=== PATIENT | female | born 1945 | race Caucasian/White ===

== ENCOUNTER 2016-07-19 14:34 | Emergency (ER) | payer MEDICARE, OTHER ==
[~2016-07-19] VITALS: Ht 167.6 cm; Wt 88.5 kg
[2016-07-19] MEDS ORDERED: HYDR-2666 PO (15:55)
[2016-07-19] MEDS ORDERED: PENI500T PO (15:55)
[2016-07-19] MEDS ORDERED: NAPR500T PO (15:55)
--- NOTE | 2016-07-19 15:55 | PHYS DOC ---
Past Medical History Past Medical History: Diabetes-Type II Past Surgical History: No Surgical History Alcohol Use: None Drug Use: None Adult General Chief Complaint Chief Complaint: DENTAL PROBLEM HPI HPI Patient is a 70 year old [female pleasant who presents with a history of diabetes and dental pain that began 2 days ago. Patient noted some upper dental pain with chewing and mild facial swelling that has gotten progressively worse over last 2 days. She denies any documented fevers but has had some chills without change in voice, ear pain, recent URI symptoms, trauma to her mouth or problems swallowing. Patient has a history of dentition problems with multiple caps and fillings in the past. She does not get routine dental care she does not brush her teeth twice a day. She denies any halitosis abdominal pain, chest pain, shortness of breath, neck pain or neck symptoms. At this point patient is just worried about the localized swelling in the cheek above the upper teeth. Differential diagnosis includes dental caries, dental abscess, gingival abscess , gingivitis, buccal abscess, sialitis, dental fracture, Manjit angina, sialadenitis, parotitis, dyspnea, otitis externa, sinusitis, facial cellulitis. Review of Systems Review of Systems Constitutional: Denies fever or just minor subjective chills Eyes: Denies change in visual acuity, redness, or eye pain [] HENT: Denies nasal congestion or sore throat [] Respiratory: Denies cough or shortness of breath [] Cardiovascular: No additional information not addressed in HPI [] GI: Denies abdominal pain, nausea, vomiting, bloody stools or diarrhea [] : Denies dysuria or hematuria [] Musculoskeletal: Denies back pain or joint pain [] Integument: Denies rash or skin lesions [] Neurologic: Denies headache, focal weakness or sensory changes [] Endocrine: Denies polyuria or polydipsia [] Physical Exam Physical Exam Constitutional: Well developed, well nourished, no acute distress, non-toxic appearance. [] HENT: Normocephalic, atraumatic, bilateral external ears normal, oropharynx moist, no oral exudates, nose normal. He does have some soft tissue swelling to the buccal mucosa superiorly to the #16 tooth has some tenderness with palpation. Percussion there is no obvious fluctuance or abscess to drain at this time. Patient has no pain over the tragus or the external pinna. There is no Bynum sign is no rashes on the face. There is no rash along the scalp line. Eyes: PERRLA, EOMI, conjunctiva normal, no discharge. [] Neck: Normal range of motion, no tenderness, supple, no stridor. [] Cardiovascular:Heart rate regular rhythm, no murmur [] Lungs & Thorax: Bilateral breath sounds clear to auscultation [] Skin: Warm, dry, no erythema, no rash. [] Neurologic: Alert and oriented X 3, normal motor function, normal sensory function, no focal deficits noted. Patient's cranial nerve exam 2 through 12 are intact and normal speech Psychologic: Affect normal, judgement normal, mood normal. [] EKG EKG [] Radiology/Procedures Radiology/Procedures [] Course & Med Decision Making Course & Med Decision Making Pertinent Labs and Imaging studies reviewed. (See chart for details) she presents with likely odontogenic infection and isn't affected soft tissue of the buccal mucosa. There is no evidence of cell adenitis parotitis or other soft tissue infection. Doubt fracture to it there is extensive dental caries with gingival inflammation along the base of each tooth and along the occlusive services. Patient was provided a course of penicillin, pain medications and anti -inflammatories with close follow-up on Wednesday or Wednesday with a dentist to help reduce burden of bacteria across her teeth by getting cleanings. I would advise that she has teeth drilled and filled and possible root canal. Impression dental caries with localized soft tissue information. Disposition: Dental follow-up 24-48 hours. A course of penicillin, Lortab, Motrin. [] Dragon Disclaimer Dragon Disclaimer This electronic medical record was generated, in whole or in part, using a voice recognition dictation system. Departure Departure Impression: Primary Impression: Dental caries Disposition: HOME, SELF-CARE Condition: IMPROVED Referrals: BEST ARROYO MD (PCP) Patient Instructions: Dental Caries Additional Instructions: His follow-up with your dentist in next 24-48 hours for definitive exam and removal of possibly infected teeth. Given the extent of your dental erosions I would advise that you get leanings every 6 months as well as routine dental care every day of water pressure to twice daily and flossing. Please return for any new or increasing symptoms fevers chills neck pain swelling or other questions. Scripts Penicillin V Potassium (PENICILLIN V POTASSIUM) 500 Mg Tablet 1 TAB PO QID, #40 TAB Prov: NICHO CULP MD 07/19/16 Naproxen (NAPROSYN) 500 Mg Tablet 1 TAB PO BID, #14 TAB 1 Refill Prov: NICHO CULP MD 07/19/16 Hydrocodone Bit/Acetaminophen (HYDROCODONE-APAP 5-325 ) 1 Each Tablet 1-2 TAB PO PRN Q6HRS Y for PAIN for 5 Days, #10 TAB 0 Refills Prov: NICHO CULP MD 07/19/16 NICHO CULP MD Jul 19, 2016 15:55
[2016-07-19 16:18] VITALS: BP 132/62
== END 2016-07-19 16:23 | disposition home or self-care (01) ==
LOC: ER 14:34
DX: K02.9 Dental caries, unspecified (principal); E11.9 Type 2 diabetes mellitus without complications; K05.10 Chronic gingivitis, plaque induced
CPT/HCPCS: 99283

== ENCOUNTER 2016-07-27 12:18 | Emergency (ER) | payer MEDICARE, OTHER ==
[~2016-07-27] VITALS: Ht 167.6 cm; Wt 88.5 kg
[~2016-07-27 12:18] MED LIST: HYDR-2758 PO; NAPR500T PO; PENI500T PO
[2016-07-27] MEDS ORDERED: IV NORMAL SALINE 1000ML BAG 1,000 ML IV ONE (13:00)
--- NOTE | 2016-07-27 13:05 | PHYS DOC ---
Past Medical History Past Medical History: Diabetes-Type II, Hypertension Past Surgical History: No Surgical History Alcohol Use: None Drug Use: None Adult General Chief Complaint Chief Complaint: WEAKNESS/GENERALIZED HPI HPI Patient is a 70 year old F who presents with generalized weakness and nausea vomiting. Patient is currently on penicillin for tooth infection and had 2 teeth pulled last week. Patient states she has not been feeling well and she eats it does not sit well with her and vomits. Patient called her dentist this morning to discuss her symptoms and the dentist told her to follow-up with her PCP. Patient called her PCP discussed her symptoms and the PCP told her to follow up with dentist. Patient denies any fevers. Patient denies any chest pain returns of breath. Patient does complain of some swelling to her left side the face more notably at night. Patient denies any abdominal pain. Pertinent exam findings: No swelling to her left side of the face noted on physical exam Severe dental caries and missing teeth no identifiable abscess seen on the left upper or lower gumlines Heart was regular rate and rhythm with a 4/6 MICHELLE ED course: She was seen and examined a CBC, BMP, CT scan of the maxillofacial without contrast ordered 1718: Patient was reevaluated and was feeling better and wants to go home and does not want to be admitted to hospital. Discussed abnormal blood work the patient and recommended she follow up with PCP to have her white count rechecked. 1800: Discussed CC/HP/PMH with Dr. Arroyo and will call the patient for follow- up and agrees with discharge. Pertinent results: 1328: KG shows normal sinus rhythm rate of 70 no STEMI WBC 18 Chest x-ray NAD CT scan of maxillofacial negative MDM: After reviewing the chart, CC/HPI/PMH, physical exam, [lab results], [ radiological results], I do not believe the patient has emergent medical condition warranting further workup and/or admission at this time. I do not the patient has a severe bacterial infection despite the white count being 18 and having no other signs of infection, afebrile and a normal epigastric. On reexamination patient does not want to be admitted to hospital under seen all risks including and disability and would like to go home. Recommended she follow up with PCP to have her white count rechecked. Additional verbal discharge instructions were provided to the patient and that if symptoms get worse or any new symptoms arise that are worrisome to the patient she is to return to the emergency room immediately Review of Systems Review of Systems GEN: Generalized weakness HEENT: Denies blurred vision, sore throat CV: Denies chest pain RESP: Denies shortness of air, cough GI: Nausea and vomiting NEURO: Denies confusion, dizziness MSK: Denies weakness, joint pain/swelling Current Medications Current Medications Current Medications Medications (Trade) Dose Ordered Sig/Riley Start Time Stop Time Status Last Admin Dose Admin Sodium Chloride 1,000 ml @ 1,000 mls/hr 1X ONCE 07/27/16 13:00 07/27/16 13:59 DC 07/27/16 13:43 1,000 MLS/HR Allergies Allergies Allergies Coded Allergies Type Severity Reaction Last Updated Verified No Known Drug Allergies 07/19/16 No Physical Exam Physical Exam GEN.: No apparent distress. Alert and oriented. HEENT: Head is normocephalic, atraumatic Mouth: No swelling to her left side of the face noted on physical exam Severe dental caries and missing teeth no identifiable abscess seen on the left upper or lower gumlines NECK: Supple. LUNGS: CTAB. HEART: RRR, or/6 MICHELLE. Peripheral pulses intact ABDOMEN: Soft, nontender. Positive bowel sounds. EXTREMITIES: Without any cyanosis. NEUROLOGIC: Normal speech, normal tone PSYCHIATRIC: Normal affect, normal mood. SKIN: No ulcerations Current Patient Data Vital Signs Vital Signs Date Time Temp Pulse Resp B/P (MAP) Pulse Ox O2 Delivery O2 Flow Rate FiO2 07/27/16 17:35 80 16 142/66 (91) 94 Room Air 07/27/16 12:45 98.9 98.9 Lab Values Laboratory Tests Test 07/27/16 12:55 07/27/16 14:35 07/27/16 15:55 White Blood Count 18.6 x10^3/uL (4.0-11.0) H Red Blood Count 3.76 x10^6/uL (3.50-5.40) Hemoglobin 10.5 g/dL (12.0-15.5) L Hematocrit 32.2 % (36.0-47.0) L Mean Corpuscular Volume 86 fL (79-100) Mean Corpuscular Hemoglobin 28 pg (25-35) Mean Corpuscular Hemoglobin Concent 33 g/dL (31-37) Red Cell Distribution Width 14.6 % (11.5-14.5) H Platelet Count 589 x10^3/uL (140-400) H Neutrophils (%) (Auto) 81 % (31-73) H Lymphocytes (%) (Auto) 12 % (24-48) L Monocytes (%) (Auto) 7 % (0-9) Eosinophils (%) (Auto) 0 % (0-3) Basophils (%) (Auto) 0 % (0-3) Neutrophils # (Auto) 15.1 x10^3uL (1.8-7.7) H Lymphocytes # (Auto) 2.2 x10^3/uL (1.0-4.8) Monocytes # (Auto) 1.2 x10^3/uL (0.0-1.1) H Eosinophils # (Auto) 0.0 x10^3/uL (0.0-0.7) Basophils # (Auto) 0.0 x10^3/uL (0.0-0.2) Sodium Level 136 mmol/L (136-145) Potassium Level 3.7 mmol/L (3.5-5.1) Chloride Level 97 mmol/L (98-107) L Carbon Dioxide Level 32 mmol/L (21-32) Anion Gap 7 (6-14) Blood Urea Nitrogen 26 mg/dL (7-20) H Creatinine 1.0 mg/dL (0.6-1.0) Estimated GFR (Cockcroft-Gault) 54.8 Glucose Level 223 mg/dL (70-99) H Calcium Level 9.6 mg/dL (8.5-10.1) Urine Collection Type Unknown Urine Color Yellow Urine Clarity Turbid Urine pH 7.5 Urine Specific [place] 1.020 Urine Protein Negative mg/dL (NEG-TRACE) Urine Glucose (UA) Negative mg/dL (NEG) Urine Ketones (Stick) Negative mg/dL (NEG) Urine Blood Negative (NEG) Urine Nitrite Negative (NEG) Urine Bilirubin Negative (NEG) Urine Urobilinogen Dipstick 0.2 mg/dL (0.2 mg/dL) Urine Leukocyte Esterase Negative (NEG) Urine RBC 0 /HPF (0-2) Urine WBC 1-4 /HPF (0-4) Urine Squamous Epithelial Cells Few /LPF Urine Amorphous Sediment Present /HPF Urine Bacteria Few /HPF (0-FEW) Lactic Acid Level 1.0 mmol/L (0.4-2.0) Laboratory Tests 07/27/16 12:55 Laboratory Tests 07/27/16 12:55 EKG EKG Normal sinus rhythm rate of 70 no STEMI [] Radiology/Procedures Radiology/Procedures CT scan the facial without contrast: NAD[] Course & Med Decision Making Course & Med Decision Making Pertinent Labs and Imaging studies reviewed. (See chart for details) [] Dragon Disclaimer Dragon Disclaimer This electronic medical record was generated, in whole or in part, using a voice recognition dictation system. Departure Departure Impression: Primary Impression: Weakness Disposition: HOME, SELF-CARE Condition: IMPROVED Referrals: BEST ARROYO MD (PCP) Patient Instructions: Weakness, [id number] Additional Instructions: Recommend patient follow PCP in one to 2 days and return symptoms increase MARVA ANDERSON DO Jul 27, 2016 13:05
[2016-07-27 13:14] LABS: BASO % 0 % (0-3); EOS % 0 % (0-3); HEMATOCRIT 32.2 % (36.0-47.0); HEMOGLOBIN 10.5 g/dL (12.0-15.5); LYMPH # 2.2 x10^3/uL (1.0-4.8); LYMPH % 12 % (24-48); MEAN CORPUSCULAR HEMOGLOBIN 28 pg (25-35); MEAN CORPUSCULAR HGB CONC 33 g/dL (31-37); MEAN CORPUSCULAR VOLUME 86 fL (79-100); MONO % 7 % (0-9); NEUT % 81 % (31-73); PLATELET COUNT 589 x10^3/uL (140-400); RED BLOOD COUNT 3.76 x10^6/uL (3.50-5.40); RED CELL DISTRIBUTION WIDTH 14.6 % (11.5-14.5); WHITE BLOOD COUNT 18.6 x10^3/uL (4.0-11.0)
[2016-07-27 13:18] LABS: CALCIUM 9.6 mg/dL (8.5-10.1); GFR 54.8; POTASSIUM 3.7 mmol/L (3.5-5.1)
[2016-07-27 14:41] LABS: BILIRUBIN,URINE NEGATIVE (NEG); GLUCOSE,URINE NEGATIVE (NEG); NITRITE,URINE NEGATIVE (NEG); PH,URINE 7.5; PROTEIN,URINE NEGATIVE (NEG-TRACE); UROBILINOGEN,URINE 0.2 mg/dL (0.2 mg/dL)
[2016-07-27 15:11] LABS: BACTERIA,URINE FEW /HPF (0-FEW); RBC,URINE 0 /HPF (0-2); SQUAMOUS EPITHELIAL CELL,UR FEW /LPF
--- NOTE | 2016-07-27 15:21 | RAD ---
CT scan of the facial bones without contrast 07/27/2016 Clinical history: Left facial swelling and weakness. History of periodontal disease. Recent tooth extraction. Technique: Unenhanced, contiguous, 0.625 mm axial sections were obtained through the facial bones and orbits. 2 mm reconstructed sagittal, axial and coronal images were obtained. Findings: No facial bone fracture is seen. Both orbits are intact. Mild mucosal thickening is seen involving both maxillary sinuses. The remaining paranasal sinuses are clear. No air-fluid level is seen. Extraction sites are seen involving the left aspect of the maxilla in the region of the first and third molars. An old extraction site is seen in the region of the left lower first molar. The right lower first molar is fractured at its root. A caries is seen involving the right upper second premolar. No Periapical lucency is seen. The right mandibular head is translated anterior to the TMJ fossa relative to the left which may reflect meniscus displacement. Mild to moderate degenerative changes are seen involving both TMJs, right greater than left. No abnormal fluid collection is seen within the soft tissues to suggest evidence of an abscess. Impression: Paranasal sinus and dental disease findings as outlined above. No acute soft tissue abnormality is seen.
[2016-07-27 17:35] VITALS: BP 142/66
--- NOTE | 2016-07-28 08:25 | RAD ---
EXAM: Chest one view. HISTORY: Hypoxia. COMPARISON: 08/02/2009. FINDINGS: A frontal view of the chest is obtained. There is mild atelectasis in the left base. Scattered calcified granulomas are noted. There is no pneumothorax or pleural effusion. The heart is mildly enlarged. There are atherosclerotic calcifications of the aorta. IMPRESSION: 1. Mild cardiomegaly.
--- NOTE | 2016-07-28 09:39 | EKG ---
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
== END 2016-07-27 17:55 | disposition home or self-care (01) ==
LOC: ER 12:18
DX: R53.1 Weakness (principal); R11.2 Nausea with vomiting, unspecified; R22.0 Localized swelling, mass and lump, head; E11.9 Type 2 diabetes mellitus without complications; I10 Essential (primary) hypertension
CPT/HCPCS: 36415; 70486; 71010; 80048; 81001; 83605; 85027; 87040; 87205; 93005; 96360; 99285; J7030

== ENCOUNTER 2016-07-30 12:19 | Inpatient (IN) | payer MEDICARE, OTHER ==
[~2016-07-30] VITALS: Ht 167.6 cm; Wt 87.3 kg
[2016-07-30] VITALS (10 sets, daily range): BP systolic 115–153; BP diastolic 55–74
[2016-07-30] MEDS ORDERED: IV NORMAL SALINE 1000ML BAG 1,000 ML IV ONE (13:15)
[2016-07-30 13:27] LABS: BASO % 0 % (0-3); EOS % 0 % (0-3); HEMATOCRIT 32.9 % (36.0-47.0); HEMOGLOBIN 10.7 g/dL (12.0-15.5); LYMPH # 2.4 x10^3/uL (1.0-4.8); LYMPH % 11 % (24-48); MEAN CORPUSCULAR HEMOGLOBIN 28 pg (25-35); MEAN CORPUSCULAR HGB CONC 33 g/dL (31-37); MEAN CORPUSCULAR VOLUME 85 fL (79-100); MONO % 6 % (0-9); NEUT % 82 % (31-73); PLATELET COUNT 592 x10^3/uL (140-400); RED BLOOD COUNT 3.86 x10^6/uL (3.50-5.40); RED CELL DISTRIBUTION WIDTH 15.1 % (11.5-14.5); WHITE BLOOD COUNT 21.3 x10^3/uL (4.0-11.0)
[2016-07-30 13:40] LABS: CALCIUM 9.2 mg/dL (8.5-10.1); CREATININE 0.8 mg/dL (0.6-1.0); GFR 70.9; POTASSIUM 3.1 mmol/L (3.5-5.1)
[2016-07-30 13:45] LABS: ALBUMIN 2.1 g/dL (3.4-5.0); ALBUMIN/GLOBULIN RATIO 0.4 (1.0-1.7); TOTAL BILIRUBIN 0.7 mg/dL (0.2-1.0); TOTAL PROTEIN 8.1 g/dL (6.4-8.2)
[2016-07-30] MEDS ORDERED: DEXTROSE 50% 25 GM / 50ML DISP.SYRIN. IV ONE (13:45)
--- NOTE | 2016-07-30 13:50 | RAD ---
AP portable chest radiograph 07/30/2016 Clinical History: Fever since earlier today. Hypertension, diabetes and sleep apnea. An AP portable erect digital radiograph of the chest was obtained. Comparison study is dated 07/27/2016. The cardiac silhouette is mildly enlarged. Atherosclerotic calcification of the thoracic aorta is seen. The thoracic aorta is mildly tortuous. No acute pulmonary infiltrate is noted. No pleural effusion or pneumothorax is seen. Degenerative changes are seen involving the thoracic spine and both shoulders. Impression: No acute pulmonary infiltrate is seen.
[2016-07-30 13:58] LABS: HCO3 ABG 24 mmol/L (21-28); PCO2 ABG 28 mmHg (35-46); PO2 ABG 68 mmHg (65-108); SAT O2 ABG 95 % (92-99)
[2016-07-30 14:01] LABS: BILIRUBIN,URINE MODERATE (NEG); GLUCOSE,URINE NEGATIVE (NEG); NITRITE,URINE NEGATIVE (NEG); PH,URINE 5.5; PROTEIN,URINE NEGATIVE (NEG-TRACE)
[2016-07-30 14:03] LABS: PH ABG 7.55 (7.35-7.45)
[2016-07-30 14:09] LABS: BACTERIA,URINE 0 /HPF (0-FEW); RBC,URINE 0 /HPF (0-2); SQUAMOUS EPITHELIAL CELL,UR OCC /LPF
[2016-07-30] MEDS ORDERED: HYDROCORTISONE SOD SUCC/PF 100 MG/2 ML VIAL. IV ONE (14:15)
[2016-07-30] MEDS ORDERED: IOHEXOL 300 MG/ML 75 ML VIAL IV ONE (14:15)
[2016-07-30] MEDS ORDERED: CONTRAST GIVEN MC PRN (14:30)
[2016-07-30 14:35] LABS: PLT ESTIMATE INCREASED (ADEQUATE)
--- NOTE | 2016-07-30 14:44 | EKG ---
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 POSSIBLY ABNORMAL ECG RI6.01 Compared to ECG 07/27/2016 13:15:24 No significant changes Electronically Signed On 08-03-2016 10:35:44 CDT by Juan Carolina
--- NOTE | 2016-07-30 15:02 | RAD ---
CT scan of the abdomen and pelvis with contrast 07/30/2016 Clinical history: Weakness and nausea for one week. Technique: After the intravenous administration of 75 cc of Omnipaque 300, contiguous, 5 mm axial sections were obtained through the abdomen and pelvis. One or more of the following individualized dose reduction techniques were utilized for this study: 1. Automated exposure control. 2. Adjustment of the mA and/or kV according to patient size. 3. Use of iterative reconstruction technique. Findings: No previous imaging studies are available for comparison. Images through the lung bases demonstrate mild cardiomegaly. Multiple rounded masslike opacities are seen throughout both lower lobes and the right middle lobe which measure 5 mm to 1.8 cm in size. Some of these areas contain air within them. Differential etiologies for this would include septic pulmonary emboli versus pulmonary metastasis. Small calcified granulomas are seen involving both lower lobes.. Calcified right hilar and mediastinal lymph nodes are seen. The liver, spleen, pancreas, adrenal glands and right kidney are within normal limits. A 2 mm nonobstructing calculus is seen involving the lower pole of the left kidney. Moderate atherosclerotic calcification of the abdominal aorta is seen. The abdominal aorta tapers normally. The gallbladder is well distended. No free fluid or free air is seen within the abdomen. The appendix is well visualized and is within normal limits. Scattered diverticula are seen involving the colon. No inflammatory changes are seen in the adjacent fat. Images through the pelvis demonstrate the urinary bladder distended with urine. The uterus is within normal limits. Calcifications are seen within the pelvis consistent with phleboliths. No adnexal mass is seen. No free fluid is noted. Minimal S shaped curvature of the thoracolumbar spine is seen. Degenerative changes are seen involving the lower thoracic and throughout the lumbar spine and both hips. Impression 1. Multiple rounded masslike opacities are seen throughout both lower lobes and the right middle lobe which measure 5 mm to 1.8 cm in size. Some of these areas contain air within them. Differential etiologies would include septic pulmonary emboli versus pulmonary metastasis. 2. No acute abnormality is seen involving the abdomen or pelvis.
[2016-07-30] MEDS ORDERED: VANCOMYCIN 1.5 GM in IV NORMAL SALINE 500ML BAG 500 ML IV ONE (15:30)
[2016-07-30] MEDS ORDERED: PIPERACILLIN/TAZOBACTAM 3.375 GM in IV NORMAL SALINE 50ML 50 ML IV ONE (15:30)
[2016-07-30] MEDS ORDERED: VANCOMYCIN 2 GM in IV NORMAL SALINE 500ML BAG 500 ML IV ONE ×2 (15:45→17:00)
[2016-07-30] MEDS ORDERED: PIP/TAZO PER PHARMACY MC PRN (16:30)
[2016-07-30] MEDS ORDERED: PIPERACILLIN/TAZOBACTAM 4.5 GM in IV NORMAL SALINE 100ML 100 ML IV ONE (16:45)
--- NOTE | 2016-07-30 17:52 | RAD ---
History: Septic emboli, weakness and fever. Comparison: CT abdomen and pelvis July 30, 2016. Technique: Helical CT of the chest was performed without intravenous contrast. Exposure: One or more of the following individualized dose reduction techniques were utilized for this examination: 1. Automated exposure control 2. Adjustment of the mA and/or kV according to patient size 3. Use of iterative reconstruction technique Findings: There is respiratory symmetric. Trachea and mainstem bronchi appear patent. No mediastinal lymphadenopathy is seen. Calcified aortic atherosclerosis is noted. No pericardial thickening is identified. Both lungs demonstrate presence of multiple pulmonary nodules, some of which are round and some which are irregular. Some of the nodules demonstrate cavitation. Largest nodules in the right lower lobe and measures about 1.5 cm. No pneumothorax or pleural effusion is seen. Impression: Multiple bilateral pulmonary nodules, some of which are irregular and some which are cavitary. Possible etiologies include septic pulmonary emboli, Dominique's granulomatosis, and pulmonary metastases (including from squamous cell carcinoma, GI adenocarcinoma, cervical cancer, sarcomas, or transitional cell carcinoma ). Electronically signed by: Elvin Sol MD (07/30/2016 5:48 PM)
[2016-07-30] MEDS ORDERED: ONDANSETRON PF 4 MG/2 ML VIAL. IV PRN (18:00)
[2016-07-30] MEDS ORDERED: POTASSIUM CHLORIDE 40 MEQ in IV NORMAL SALINE 1000ML BAG 1,000 ML IV SCH (18:00)
--- NOTE | 2016-07-30 18:04 | PDOC ---
Provider Note Provider Note Patient seen. History and Physical dictated. See dictation# [id number] BEST ARROYO MD Jul 30, 2016 18:04
--- NOTE | 2016-07-30 18:12 | ED.ADGEN ---
Past Medical History Past Medical History: Diabetes-Type II, Hypertension Past Surgical History: No Surgical History Alcohol Use: None Drug Use: None Adult General Chief Complaint Chief Complaint: HEADACHE HPI HPI Patient is a 70 year old female with progressive generalized weakness fatigue and low-grade fever. Patient was seen in the emergency department 2 days ago for weakness. An extensive workup including lab and imaging studies. The patient was treated for dental caries and discharged home. She is been complaining with antibiotics but reports decreased appetite and oral intake today with general failure to thrive. Denies headache, cough, sore throat, shortness of breath. No urinary frequency urgency. No other symptoms or complaints. Review of Systems Review of Systems Review symptoms as per history of present illness. Allergies Allergies Allergies Coded Allergies Type Severity Reaction Last Updated Verified No Known Drug Allergies 07/19/16 No Physical Exam Physical Exam Constitutional: Well developed, well nourished, no acute distress, non-toxic appearance. HENT: Normocephalic, atraumatic, bilateral external ears normal, oropharynx moist, no oral exudates, nose normal, dental caries without soft tissue abscess. Eyes: PERRL. Neck: Normal range of motion, no midline tenderness. Cardiovascular:Heart rate regular rhythm. Lungs & Thorax: Bilateral breath sounds clear to auscultation. Abdomen: Bowel sounds normal, soft, no tenderness. Skin: Warm, dry, no erythema. Back: No tenderness. Extremities: No tenderness. Neurologic: Alert and oriented. EKG EKG [] Radiology/Procedures Radiology/Procedures [XR chest: NAD CT abd/pelvis: No acute intraabdominal process. Septic pulmonary emboli versus metastatic disease per disease. ] Course & Med Decision Making Course & Med Decision Making Pertinent Labs and Imaging studies reviewed. (See chart for details) [22,000 white count without evidence of discrete infection on clinical exam. Chest x-ray negative. CT abdomen pelvis shows full masslike lesions and lungs consistent with septic pulmonary emboli versus possible metastatic disease. Given patient's clinical symptoms and elevated white blood cell count, the prelminary diagnosis of an infectious etiology is favored. Empiric broad's spectrum antibiotics started in the emergency Department. Patient's vital signs remain stable. Dr. Evangelist Bingham to admit to the ICU.] Guille Disclaimer Rossion Disclaimer This electronic medical record was generated, in whole or in part, using a voice recognition dictation system. JANICE CASTRO DO Jul 30, 2016 18:12
[2016-07-30] MEDS ORDERED: POTASSIUM CHLORIDE 20 MEQ TABLET.ER. PO ONE (19:00)
[2016-07-30] MEDS: VANCOMYCIN PER PHARMACY MC PRN (19:44)
[2016-07-30] MEDS: HYDROcodone/APAP 5/325MG 1 TAB TABLET PO PRN (20:00)
--- NOTE | 2016-07-30 20:40 | PREOP HP ---
DATE OF SERVICE: 07/30/2013 ADMITTING PHYSICIAN: Dr. Evangelist Arroyo. HISTORY OF PRESENT ILLNESS: This 70-year-old female initially presented to [facility] Emergency Room on 07/27/2016 because of nausea and vomiting. She had her teeth pulled out on 07/14/2016 and 2 days later, she started having nausea and vomiting. She went to the Emergency Room on 07/19/2016. CT scan of maxillofacial images revealed mucosal thickening involving both maxillary sinuses and right lower first molar fractured . The patient was given penicillin-VK and discharged home. Subsequently, the patient has been back to the Emergency Room on 07/27/2016, and at that time, her white count was noted to be 18.6. She was on antibiotics and clinically appears to be stable, so she was discharged back home, but she was seen in the office yesterday. In the office, repeat labs were ordered, which are still not back yet. Today, the patient called the office stating that she was not feeling well and had nausea and vomiting, and she was not able to eat. The patient was sent to the Emergency Room. In the Emergency Room, the patient had an increase in her white count to 21,300; hemoglobin was 10.7; platelet count 592,000. Sodium 131, potassium 3.1, BUN 15, creatinine 0.8, glucose was 60. Lactic acid was 1.2. ABG revealed pH of 7.55, pCO2 of 28, pO2 of 68. Urinalysis was negative. Chest x-ray was negative for any infiltrates; however, the CT scan of abdomen and pelvis showed multiple rounded mass-like opacities throughout both lower lobes and the right middle lobe with possibility of septic pulmonary emboli versus pulmonary metastasis. CT scan of abdomen and pelvis were unremarkable. CT scan of the chest shows multiple bilateral pulmonary nodules, some of which are irregular and some of them are cavitary. Possible etiologies include septic pulmonary emboli, Dominique's granulomatosis, and pulmonary metastasis. Because of her fever, leukocytosis, and septic pulmonary emboli, the patient has been admitted for further evaluation and management. Systems review at present time, the patient denies any nausea or vomiting, although this morning she had some. She currently complains of headaches. She states that she will feel better if her headaches are better. She denies any chest pains, cold, cough, congestion, dyspnea, dizziness, diaphoresis, or swelling of the legs. She just says that she is not feeling well and she feels weak. Other systems reviewed and are negative. REVIEW OF SYSTEMS: As noted in the history of present illness. PAST MEDICAL HISTORY: The patient has a history of generalized osteoarthritis, diabetes mellitus type 2 without complication, osteoporosis, hypertension, hyperlipidemia, history of removal of colonic polyps, diverticulosis, hemorrhoids, aortic sclerosis, and obesity. FAMILY HISTORY: Father had hypertension, congestive heart failure, and heart disease. Mother had diabetes. SOCIAL HISTORY: The patient used to smoke in the past, not now. No history of alcoholism or drug abuse. The patient is . She is retired. PHYSICAL EXAMINATION: VITAL SIGNS: Temperature maximum 99.7, pulse 72 per minute, respirations 16 per minute, blood pressure 139/65. GENERAL: She is an elderly female, who is alert, oriented and not in any acute distress. She is obese. HEENT: Unremarkable except for caries teeth. EYES: Pupils reacting to light. Conjunctivae pale. Sclerae muddy. NECK: Supple. JVP normal. No thyromegaly. Trachea midline. LUNGS: Clear with decreased breath sounds at bases. CARDIOVASCULAR: S1, S2 regular. ABDOMEN: Soft, nontender, no guarding, no rigidity. Bowel sounds present. EXTREMITIES: No edema, no cyanosis, no calf tenderness. NEUROLOGIC: Moves all extremities, alert and oriented. No acute changes noted. LABORATORY FINDINGS: As noted earlier, WBC count is 21.2. Urinalysis is unremarkable. Hemoglobin is 10.7. Sodium 131, potassium 3.1, BUN 15, creatinine 0.8, glucose 60, subsequent glucose level is 123, albumin is 2.1. IMAGING DATA: Chest x-ray, CT scan, and CT of the abdomen and pelvis as noted earlier. IMPRESSION: 1. Septic pulmonary emboli, most likely source is dental infection. 2. Hypertension. 3. Diabetes mellitus type 2. 4. Hypokalemia. 5. Hyponatremia. 6. Osteoarthritis. 7. Osteoporosis. 8. Non-morbid obesity. 9. Aortic sclerosis. 10. Severe protein-calorie malnutrition. 11. Gastroesophageal reflux disease. 12. Mixed hyperlipidemia. PLAN: I will hold glipizide and metformin at this time due to hypoglycemia as well as due to nausea and vomiting. We will consult Dr. Urbina for infectious disease evaluation and management. Consult Dr. King for pulmonary evaluation and management. The patient has been started on IV vancomycin and Zosyn. I will give her potassium supplements and I will also start her on some IV fluids. Prognosis of this patient is poor due to her multiple medical problems. For details, please refer to the orders. EVANGELIST ARROYO MD DR: DESMOND/marcela JOB#: [id number] / [id number]
[2016-07-31] VITALS (25 sets, daily range): BP systolic 129–173; BP diastolic 51–89
[2016-07-31] MEDS: PIPERACILLIN/TAZOBACTAM 4.5 GM in IV NORMAL SALINE 100ML 100 ML IV SCH ×5 (02:34→23:45)
[2016-07-31] MEDS ORDERED: METR70GE2 VG (03:06)
[2016-07-31] MEDS ORDERED: FENO145T PO (03:06)
[2016-07-31] MEDS ORDERED: PANT40TA3 PO (03:06)
[2016-07-31] MEDS ORDERED: SIMV20TA3 PO (03:06)
[2016-07-31] MEDS ORDERED: TRAN4TAB9 PO (03:06)
[2016-07-31] MEDS ORDERED: CHOL10003 PO (03:06)
[2016-07-31] MEDS: ACETAMINOPHEN 325 MG TABLET. PO PRN ×3 (03:36→17:20)
[2016-07-31] MEDS: HYDROcodone/APAP 5/325MG 1 TAB TABLET PO PRN (03:36)
[2016-07-31 05:04] LABS: BASO # 0.2 x10^3/uL (0.0-0.2); BASO % 1 % (0-3); EOS % 0 % (0-3); HEMATOCRIT 25.4 % (36.0-47.0); HEMOGLOBIN 8.3 g/dL (12.0-15.5); LYMPH # 2.1 x10^3/uL (1.0-4.8); LYMPH % 16 % (24-48); MEAN CORPUSCULAR HEMOGLOBIN 28 pg (25-35); MEAN CORPUSCULAR HGB CONC 33 g/dL (31-37); MEAN CORPUSCULAR VOLUME 85 fL (79-100); MONO % 8 % (0-9); NEUT % 75 % (31-73); PLATELET COUNT 418 x10^3/uL (140-400); RED BLOOD COUNT 2.98 x10^6/uL (3.50-5.40); RED CELL DISTRIBUTION WIDTH 14.9 % (11.5-14.5); WHITE BLOOD COUNT 13.3 x10^3/uL (4.0-11.0)
[2016-07-31 05:23] LABS: ALBUMIN 1.6 g/dL (3.4-5.0); ALBUMIN/GLOBULIN RATIO 0.3 (1.0-1.7); CALCIUM 7.8 mg/dL (8.5-10.1); CREATININE 0.8 mg/dL (0.6-1.0); GFR 70.9; POTASSIUM 3.3 mmol/L (3.5-5.1); TOTAL BILIRUBIN 0.5 mg/dL (0.2-1.0); TOTAL PROTEIN 6.3 g/dL (6.4-8.2)
--- NOTE | 2016-07-31 06:55 | PDOC ---
Infectious Disease Note ROS ROS GEN: Denies fevers, chills, sweats HEENT: Denies blurred vision, sore throat CV: Denies chest pain RESP: Denies shortness of air, cough GI: Denies n/v/d NEURO: Denies confusion, dizziness MSK: Denies weakness, joint pain/swelling Vital Sign Vital Signs Vital Signs Date Time Temp Pulse Resp B/P (MAP) Pulse Ox O2 Delivery O2 Flow Rate FiO2 07/31/16 05:00 57 16 133/61 (85) 96 Nasal Cannula 4.0 07/31/16 04:00 100.4 100.4 Physical Exam PHYSICAL EXAM GENERAL: NAD, Alert HEENT: PERRL, OC/OP NECK: Supple, no JVD, no LN LUNGS: Clear HEART: S1S2, no gallop, no murmur ABD: Soft, NT, no organomegaly, no rebound EXT: No edema, no cyanosis OPHTHALMIC PATHOLOGIST: Alert, oriented x 3, no focal neurologic deficit SKIN: No rash IV: ok Labs Lab Laboratory Tests Test 07/30/16 13:12 07/30/16 13:45 07/30/16 15:09 07/31/16 03:43 White Blood Count 21.3 x10^3/uL (4.0-11.0) Red Blood Count 3.86 x10^6/uL (3.50-5.40) Hemoglobin 10.7 g/dL (12.0-15.5) Hematocrit 32.9 % (36.0-47.0) Mean Corpuscular Volume 85 fL (79-100) Mean Corpuscular Hemoglobin 28 pg (25-35) Mean Corpuscular Hemoglobin Concent 33 g/dL (31-37) Red Cell Distribution Width 15.1 % (11.5-14.5) Platelet Count 592 x10^3/uL (140-400) Neutrophils (%) (Auto) 82 % (31-73) Lymphocytes (%) (Auto) 11 % (24-48) Monocytes (%) (Auto) 6 % (0-9) Eosinophils (%) (Auto) 0 % (0-3) Basophils (%) (Auto) 0 % (0-3) Neutrophils # (Auto) 17.6 x10^3uL (1.8-7.7) Lymphocytes # (Auto) 2.4 x10^3/uL (1.0-4.8) Monocytes # (Auto) 1.3 x10^3/uL (0.0-1.1) Eosinophils # (Auto) 0.0 x10^3/uL (0.0-0.7) Basophils # (Auto) 0.0 x10^3/uL (0.0-0.2) Segmented Neutrophils % 80 % (35-66) Band Neutrophils % 6 % (0-9) Lymphocytes % 8 % (24-48) Monocytes % 6 % (0-10) Platelet Estimate Increased (ADEQUATE) O2 Saturation 95 % (92-99) Arterial Blood pH 7.55 (7.35-7.45) Arterial Blood pCO2 at Patient Temp 28 mmHg (35-46) Arterial Blood pO2 at Patient Temp 68 mmHg (65-108) Arterial Blood HCO3 24 mmol/L (21-28) Arterial Blood Base Excess 2 mmol/L (-3-3) FiO2 21.0 Sodium Level 131 mmol/L (136-145) Potassium Level 3.1 mmol/L (3.5-5.1) Chloride Level 93 mmol/L (98-107) Carbon Dioxide Level 29 mmol/L (21-32) Anion Gap 9 (6-14) Blood Urea Nitrogen 15 mg/dL (7-20) Creatinine 0.8 mg/dL (0.6-1.0) Estimated GFR (Cockcroft-Gault) 70.9 BUN/Creatinine Ratio 19 (6-20) Glucose Level 60 mg/dL (70-99) Lactic Acid Level 1.2 mmol/L (0.4-2.0) Calcium Level 9.2 mg/dL (8.5-10.1) Total Bilirubin 0.7 mg/dL (0.2-1.0) Aspartate Amino Transf (AST/SGOT) 22 U/L (15-37) Alanine Aminotransferase (ALT/SGPT) 31 U/L (14-59) Alkaline Phosphatase 76 U/L (46-116) C-Reactive Protein High Sensitivity 229.07 mg/L (0.00-3.00) Total Protein 8.1 g/dL (6.4-8.2) Albumin 2.1 g/dL (3.4-5.0) Albumin/Globulin Ratio 0.4 (1.0-1.7) Urine Collection Type U cath Urine Color Yellow Urine Clarity Clear Urine pH 5.5 Urine Specific [place] 1.015 Urine Protein Negative mg/dL (NEG-TRACE) Urine Glucose (UA) Negative mg/dL (NEG) Urine Ketones (Stick) 15 mg/dL (NEG) Urine Blood Negative (NEG) Urine Nitrite Negative (NEG) Urine Bilirubin Moderate (NEG) Urine Urobilinogen Dipstick 1.0 mg/dL (0.2 mg/dL) Urine Leukocyte Esterase Negative (NEG) Urine RBC 0 /HPF (0-2) Urine WBC 1-4 /HPF (0-4) Urine Squamous Epithelial Cells Occ /LPF Urine Amorphous Sediment Present /HPF Urine Bacteria 0 /HPF (0-FEW) Urine Mucus Mod /LPF Glucose (Fingerstick) 123 mg/dL (70-99) 117 mg/dL (70-99) Test 07/31/16 04:55 White Blood Count 13.3 x10^3/uL (4.0-11.0) Red Blood Count 2.98 x10^6/uL (3.50-5.40) Hemoglobin 8.3 g/dL (12.0-15.5) Hematocrit 25.4 % (36.0-47.0) Mean Corpuscular Volume 85 fL (79-100) Mean Corpuscular Hemoglobin 28 pg (25-35) Mean Corpuscular Hemoglobin Concent 33 g/dL (31-37) Red Cell Distribution Width 14.9 % (11.5-14.5) Platelet Count 418 x10^3/uL (140-400) Neutrophils (%) (Auto) 75 % (31-73) Lymphocytes (%) (Auto) 16 % (24-48) Monocytes (%) (Auto) 8 % (0-9) Eosinophils (%) (Auto) 0 % (0-3) Basophils (%) (Auto) 1 % (0-3) Neutrophils # (Auto) 9.9 x10^3uL (1.8-7.7) Lymphocytes # (Auto) 2.1 x10^3/uL (1.0-4.8) Monocytes # (Auto) 1.1 x10^3/uL (0.0-1.1) Eosinophils # (Auto) 0.0 x10^3/uL (0.0-0.7) Basophils # (Auto) 0.2 x10^3/uL (0.0-0.2) Sodium Level 137 mmol/L (136-145) Potassium Level 3.3 mmol/L (3.5-5.1) Chloride Level 102 mmol/L (98-107) Carbon Dioxide Level 27 mmol/L (21-32) Anion Gap 8 (6-14) Blood Urea Nitrogen 18 mg/dL (7-20) Creatinine 0.8 mg/dL (0.6-1.0) Estimated GFR (Cockcroft-Gault) 70.9 BUN/Creatinine Ratio 23 (6-20) Glucose Level 132 mg/dL (70-99) Calcium Level 7.8 mg/dL (8.5-10.1) Total Bilirubin 0.5 mg/dL (0.2-1.0) Aspartate Amino Transf (AST/SGOT) 21 U/L (15-37) Alanine Aminotransferase (ALT/SGPT) 24 U/L (14-59) Alkaline Phosphatase 55 U/L (46-116) Total Protein 6.3 g/dL (6.4-8.2) Albumin 1.6 g/dL (3.4-5.0) Albumin/Globulin Ratio 0.3 (1.0-1.7) Objective Assessment Fever Leukocytosis Pulmonary nodules Recent dental extractions - PCN V 07/19 for 10 days Severe Protein malnutrition Plan Plan of Care Cont Vanc/Zosyn F/u labs and cults CT maxofacial and head Check ANCA F/u ECHO May need bronch Thank you # [id number] GONZALO BYERS MD Jul 31, 2016 06:55
--- NOTE | 2016-07-31 07:38 | PDOC ---
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 07/31/16 0738: IM PROGRESS NOTES- Subjective Subjective no appetite, not hungry or thirsty Objective Objective alert weak Vitals Vital Signs Date Time Temp Pulse Resp B/P (MAP) Pulse Ox O2 Delivery O2 Flow Rate FiO2 07/31/16 05:00 57 16 133/61 (85) 96 Nasal Cannula 4.0 07/31/16 04:00 100.4 100.4 Input & Output Intake and Output 07/31/16 07:00 Intake Total 1200 ml Output Total 650 ml Balance 550 ml Intake Oral 200 ml IV Total 1000 ml Output Urine Total 650 ml # Voids 2 # Bowel Movements 2 Physical Exam Physical Exam General appearance - alert, ill appearing, and in no distress Mental Status - alert, oriented to person, place, and time, affect appropriate to mood Head - normal Chest - clear to auscultation, no wheezes, rales or rhonchi, symmetric air entry Heart - S1 and S2 normal Abdomen - soft, nontender, nondistended, obese BS + Neurological - no acute focal neurological deficit noted Musculoskeletal - no muscular tenderness noted Extremities - no pedal edema Skin - warm and dry Labs Laboratory Tests Test 07/30/16 13:12 07/30/16 13:45 07/30/16 15:09 07/31/16 03:43 White Blood Count 21.3 x10^3/uL (4.0-11.0) Red Blood Count 3.86 x10^6/uL (3.50-5.40) Hemoglobin 10.7 g/dL (12.0-15.5) Hematocrit 32.9 % (36.0-47.0) Mean Corpuscular Volume 85 fL (79-100) Mean Corpuscular Hemoglobin 28 pg (25-35) Mean Corpuscular Hemoglobin Concent 33 g/dL (31-37) Red Cell Distribution Width 15.1 % (11.5-14.5) Platelet Count 592 x10^3/uL (140-400) Neutrophils (%) (Auto) 82 % (31-73) Lymphocytes (%) (Auto) 11 % (24-48) Monocytes (%) (Auto) 6 % (0-9) Eosinophils (%) (Auto) 0 % (0-3) Basophils (%) (Auto) 0 % (0-3) Neutrophils # (Auto) 17.6 x10^3uL (1.8-7.7) Lymphocytes # (Auto) 2.4 x10^3/uL (1.0-4.8) Monocytes # (Auto) 1.3 x10^3/uL (0.0-1.1) Eosinophils # (Auto) 0.0 x10^3/uL (0.0-0.7) Basophils # (Auto) 0.0 x10^3/uL (0.0-0.2) Segmented Neutrophils % 80 % (35-66) Band Neutrophils % 6 % (0-9) Lymphocytes % 8 % (24-48) Monocytes % 6 % (0-10) Platelet Estimate Increased (ADEQUATE) O2 Saturation 95 % (92-99) Arterial Blood pH 7.55 (7.35-7.45) Arterial Blood pCO2 at Patient Temp 28 mmHg (35-46) Arterial Blood pO2 at Patient Temp 68 mmHg (65-108) Arterial Blood HCO3 24 mmol/L (21-28) Arterial Blood Base Excess 2 mmol/L (-3-3) FiO2 21.0 Sodium Level 131 mmol/L (136-145) Potassium Level 3.1 mmol/L (3.5-5.1) Chloride Level 93 mmol/L (98-107) Carbon Dioxide Level 29 mmol/L (21-32) Anion Gap 9 (6-14) Blood Urea Nitrogen 15 mg/dL (7-20) Creatinine 0.8 mg/dL (0.6-1.0) Estimated GFR (Cockcroft-Gault) 70.9 BUN/Creatinine Ratio 19 (6-20) Glucose Level 60 mg/dL (70-99) Lactic Acid Level 1.2 mmol/L (0.4-2.0) Calcium Level 9.2 mg/dL (8.5-10.1) Total Bilirubin 0.7 mg/dL (0.2-1.0) Aspartate Amino Transf (AST/SGOT) 22 U/L (15-37) Alanine Aminotransferase (ALT/SGPT) 31 U/L (14-59) Alkaline Phosphatase 76 U/L (46-116) C-Reactive Protein High Sensitivity 229.07 mg/L (0.00-3.00) Total Protein 8.1 g/dL (6.4-8.2) Albumin 2.1 g/dL (3.4-5.0) Albumin/Globulin Ratio 0.4 (1.0-1.7) Urine Collection Type U cath Urine Color Yellow Urine Clarity Clear Urine pH 5.5 Urine Specific [place] 1.015 Urine Protein Negative mg/dL (NEG-TRACE) Urine Glucose (UA) Negative mg/dL (NEG) Urine Ketones (Stick) 15 mg/dL (NEG) Urine Blood Negative (NEG) Urine Nitrite Negative (NEG) Urine Bilirubin Moderate (NEG) Urine Urobilinogen Dipstick 1.0 mg/dL (0.2 mg/dL) Urine Leukocyte Esterase Negative (NEG) Urine RBC 0 /HPF (0-2) Urine WBC 1-4 /HPF (0-4) Urine Squamous Epithelial Cells Occ /LPF Urine Amorphous Sediment Present /HPF Urine Bacteria 0 /HPF (0-FEW) Urine Mucus Mod /LPF Glucose (Fingerstick) 123 mg/dL (70-99) 117 mg/dL (70-99) Test 07/31/16 04:55 White Blood Count 13.3 x10^3/uL (4.0-11.0) Red Blood Count 2.98 x10^6/uL (3.50-5.40) Hemoglobin 8.3 g/dL (12.0-15.5) Hematocrit 25.4 % (36.0-47.0) Mean Corpuscular Volume 85 fL (79-100) Mean Corpuscular Hemoglobin 28 pg (25-35) Mean Corpuscular Hemoglobin Concent 33 g/dL (31-37) Red Cell Distribution Width 14.9 % (11.5-14.5) Platelet Count 418 x10^3/uL (140-400) Neutrophils (%) (Auto) 75 % (31-73) Lymphocytes (%) (Auto) 16 % (24-48) Monocytes (%) (Auto) 8 % (0-9) Eosinophils (%) (Auto) 0 % (0-3) Basophils (%) (Auto) 1 % (0-3) Neutrophils # (Auto) 9.9 x10^3uL (1.8-7.7) Lymphocytes # (Auto) 2.1 x10^3/uL (1.0-4.8) Monocytes # (Auto) 1.1 x10^3/uL (0.0-1.1) Eosinophils # (Auto) 0.0 x10^3/uL (0.0-0.7) Basophils # (Auto) 0.2 x10^3/uL (0.0-0.2) Erythrocyte Sedimentation Rate 113 (0-25) Sodium Level 137 mmol/L (136-145) Potassium Level 3.3 mmol/L (3.5-5.1) Chloride Level 102 mmol/L (98-107) Carbon Dioxide Level 27 mmol/L (21-32) Anion Gap 8 (6-14) Blood Urea Nitrogen 18 mg/dL (7-20) Creatinine 0.8 mg/dL (0.6-1.0) Estimated GFR (Cockcroft-Gault) 70.9 BUN/Creatinine Ratio 23 (6-20) Glucose Level 132 mg/dL (70-99) Calcium Level 7.8 mg/dL (8.5-10.1) Total Bilirubin 0.5 mg/dL (0.2-1.0) Aspartate Amino Transf (AST/SGOT) 21 U/L (15-37) Alanine Aminotransferase (ALT/SGPT) 24 U/L (14-59) Alkaline Phosphatase 55 U/L (46-116) Total Protein 6.3 g/dL (6.4-8.2) Albumin 1.6 g/dL (3.4-5.0) Albumin/Globulin Ratio 0.3 (1.0-1.7) Laboratory Tests Test 07/30/16 13:12 07/30/16 13:45 07/30/16 15:09 07/31/16 03:43 White Blood Count 21.3 x10^3/uL (4.0-11.0) Red Blood Count 3.86 x10^6/uL (3.50-5.40) Hemoglobin 10.7 g/dL (12.0-15.5) Hematocrit 32.9 % (36.0-47.0) Mean Corpuscular Volume 85 fL (79-100) Mean Corpuscular Hemoglobin 28 pg (25-35) Mean Corpuscular Hemoglobin Concent 33 g/dL (31-37) Red Cell Distribution Width 15.1 % (11.5-14.5) Platelet Count 592 x10^3/uL (140-400) Neutrophils (%) (Auto) 82 % (31-73) Lymphocytes (%) (Auto) 11 % (24-48) Monocytes (%) (Auto) 6 % (0-9) Eosinophils (%) (Auto) 0 % (0-3) Basophils (%) (Auto) 0 % (0-3) Neutrophils # (Auto) 17.6 x10^3uL (1.8-7.7) Lymphocytes # (Auto) 2.4 x10^3/uL (1.0-4.8) Monocytes # (Auto) 1.3 x10^3/uL (0.0-1.1) Eosinophils # (Auto) 0.0 x10^3/uL (0.0-0.7) Basophils # (Auto) 0.0 x10^3/uL (0.0-0.2) Segmented Neutrophils % 80 % (35-66) Band Neutrophils % 6 % (0-9) Lymphocytes % 8 % (24-48) Monocytes % 6 % (0-10) Platelet Estimate Increased (ADEQUATE) O2 Saturation 95 % (92-99) Arterial Blood pH 7.55 (7.35-7.45) Arterial Blood pCO2 at Patient Temp 28 mmHg (35-46) Arterial Blood pO2 at Patient Temp 68 mmHg (65-108) Arterial Blood HCO3 24 mmol/L (21-28) Arterial Blood Base Excess 2 mmol/L (-3-3) FiO2 21.0 Sodium Level 131 mmol/L (136-145) Potassium Level 3.1 mmol/L (3.5-5.1) Chloride Level 93 mmol/L (98-107) Carbon Dioxide Level 29 mmol/L (21-32) Anion Gap 9 (6-14) Blood Urea Nitrogen 15 mg/dL (7-20) Creatinine 0.8 mg/dL (0.6-1.0) Estimated GFR (Cockcroft-Gault) 70.9 BUN/Creatinine Ratio 19 (6-20) Glucose Level 60 mg/dL (70-99) Lactic Acid Level 1.2 mmol/L (0.4-2.0) Calcium Level 9.2 mg/dL (8.5-10.1) Total Bilirubin 0.7 mg/dL (0.2-1.0) Aspartate Amino Transf (AST/SGOT) 22 U/L (15-37) Alanine Aminotransferase (ALT/SGPT) 31 U/L (14-59) Alkaline Phosphatase 76 U/L (46-116) C-Reactive Protein High Sensitivity 229.07 mg/L (0.00-3.00) Total Protein 8.1 g/dL (6.4-8.2) Albumin 2.1 g/dL (3.4-5.0) Albumin/Globulin Ratio 0.4 (1.0-1.7) Urine Collection Type U cath Urine Color Yellow Urine Clarity Clear Urine pH 5.5 Urine Specific [place] 1.015 Urine Protein Negative mg/dL (NEG-TRACE) Urine Glucose (UA) Negative mg/dL (NEG) Urine Ketones (Stick) 15 mg/dL (NEG) Urine Blood Negative (NEG) Urine Nitrite Negative (NEG) Urine Bilirubin Moderate (NEG) Urine Urobilinogen Dipstick 1.0 mg/dL (0.2 mg/dL) Urine Leukocyte Esterase Negative (NEG) Urine RBC 0 /HPF (0-2) Urine WBC 1-4 /HPF (0-4) Urine Squamous Epithelial Cells Occ /LPF Urine Amorphous Sediment Present /HPF Urine Bacteria 0 /HPF (0-FEW) Urine Mucus Mod /LPF Glucose (Fingerstick) 123 mg/dL (70-99) 117 mg/dL (70-99) Test 07/31/16 04:55 White Blood Count 13.3 x10^3/uL (4.0-11.0) Red Blood Count 2.98 x10^6/uL (3.50-5.40) Hemoglobin 8.3 g/dL (12.0-15.5) Hematocrit 25.4 % (36.0-47.0) Mean Corpuscular Volume 85 fL (79-100) Mean Corpuscular Hemoglobin 28 pg (25-35) Mean Corpuscular Hemoglobin Concent 33 g/dL (31-37) Red Cell Distribution Width 14.9 % (11.5-14.5) Platelet Count 418 x10^3/uL (140-400) Neutrophils (%) (Auto) 75 % (31-73) Lymphocytes (%) (Auto) 16 % (24-48) Monocytes (%) (Auto) 8 % (0-9) Eosinophils (%) (Auto) 0 % (0-3) Basophils (%) (Auto) 1 % (0-3) Neutrophils # (Auto) 9.9 x10^3uL (1.8-7.7) Lymphocytes # (Auto) 2.1 x10^3/uL (1.0-4.8) Monocytes # (Auto) 1.1 x10^3/uL (0.0-1.1) Eosinophils # (Auto) 0.0 x10^3/uL (0.0-0.7) Basophils # (Auto) 0.2 x10^3/uL (0.0-0.2) Erythrocyte Sedimentation Rate 113 (0-25) Sodium Level 137 mmol/L (136-145) Potassium Level 3.3 mmol/L (3.5-5.1) Chloride Level 102 mmol/L (98-107) Carbon Dioxide Level 27 mmol/L (21-32) Anion Gap 8 (6-14) Blood Urea Nitrogen 18 mg/dL (7-20) Creatinine 0.8 mg/dL (0.6-1.0) Estimated GFR (Cockcroft-Gault) 70.9 BUN/Creatinine Ratio 23 (6-20) Glucose Level 132 mg/dL (70-99) Calcium Level 7.8 mg/dL (8.5-10.1) Total Bilirubin 0.5 mg/dL (0.2-1.0) Aspartate Amino Transf (AST/SGOT) 21 U/L (15-37) Alanine Aminotransferase (ALT/SGPT) 24 U/L (14-59) Alkaline Phosphatase 55 U/L (46-116) Total Protein 6.3 g/dL (6.4-8.2) Albumin 1.6 g/dL (3.4-5.0) Albumin/Globulin Ratio 0.3 (1.0-1.7) Meds Current Medications Acetaminophen (Tylenol) 650 mg PRN Q6HRS PRN PO MILD PAIN / TEMP Last administered on 07/31/16 03:36; Start 07/30/16 at 17:45 Acetaminophen/ Hydrocodone Bitart (Lortab 5/325) 1 tab PRN Q6HRS PRN PO PAIN Last administered on 07/31/16 03:36; Start 07/30/16 at 17:45 Dextrose (Dextrose 50%-Water Syringe) 25 gm 1X ONCE IV Last administered on 13:53; Start 07/30/16 at 13:45; Stop 07/30/16 at 13:46; Status DC Hydrocortisone Sodium Succinate (Solu-CORTEF) 100 mg 1X ONCE IV Last administered on 07/30/16 15:21; Start 07/30/16 at 14:15; Stop 07/30/16 at 14:16 ; Status DC Info (Do NOT chart on this entry -- for MONITORING) 1 each PRN DAILY PRN MC SEE COMMENTS; Start 07/30/16 at 14:30; Stop 08/01/16 at 14:29 Iohexol (Omnipaque 300 Mg/ml) 75 ml 1X ONCE IV Last administered on 07/30/16 14:28; Start 07/30/16 at 14:15; Stop 07/30/16 at 14:16; Status DC Ondansetron HCl (Zofran) 4 mg PRN Q6HRS PRN IV NAUSEA/VOMITING; Start 07/30/16 at 18:00 Piperacillin Sod/ Tazobactam Sod (Zosyn Per Pharmacy) 1 each PRN DAILY PRN MC SEE COMMENTS; Start 07/30/16 at 16:30 Piperacillin Sod/ Tazobactam Sod 3.375 gm/Sodium Chloride 50 ml @ 100 mls/hr 1X ONCE IV Last administered on 07/30/16 17:42; Start 07/30/16 at 15:30; Stop 07/30/16 at 15:59; Status DC Piperacillin Sod/ Tazobactam Sod 4.5 gm/Sodium Chloride 100 ml @ 200 mls/hr ONCE ONCE IV ; Start 07/30/16 at 16:45; Stop 07/30/16 at 17:14; Status DC Piperacillin Sod/ Tazobactam Sod 4.5 gm/Sodium Chloride 100 ml @ 200 mls/hr Q6HRS IV Last administered on 07/31/16 06:37; Start 07/31/16 at 00:00 Potassium Chloride 40 meq/ Sodium Chloride 1,020 ml @ 75 mls/hr [id number] IV Last administered on 07/30/16 20:01; Start 07/30/16 at 18:00 Potassium Chloride (Klor-Con) 20 meq 1X ONCE PO Last administered on 20:04; Start 07/30/16 at 19:00; Stop 07/30/16 at 19:01; Status DC Sodium Chloride 1,000 ml @ 1,000 mls/hr 1X ONCE IV Last administered on 13:19; Start 07/30/16 at 13:15; Stop 07/30/16 at 14:14; Status DC Vancomycin HCl 1 each 1X ONCE MC ; Start 08/01/16 at 07:30; Stop 08/01/16 at 07 :31 Vancomycin HCl (Vanco Per Pharmacy) 1 each PRN DAILY PRN MC SEE COMMENTS Last administered on 07/30/16 19:44; Start 07/30/16 at 16:30 Vancomycin HCl 1.25 gm/Sodium Chloride 250 ml @ 167 mls/hr Q12H IV ; Start at 08:00 Vancomycin HCl 1.5 gm/Sodium Chloride 500 ml @ 250 mls/hr 1X ONCE IV ; Start 07/30/16 at 15:30; Stop 07/30/16 at 17:29; Status UNV Vancomycin HCl 2 gm/Sodium Chloride 500 ml @ 250 mls/hr 1X ONCE IV ; Start at 15:45; Stop 07/30/16 at 17:44; Status Cancel Vancomycin HCl 2 gm/Sodium Chloride 500 ml @ 250 mls/hr ONCE ONCE IV Last administered on 07/30/16 20:00; Start 07/30/16 at 17:00; Stop 07/30/16 at 18:59 ; Status DC Assessment Assessment IMPRESSION: 1. Septic pulmonary emboli, most likely source is dental infection. 2. Hypertension. 3. Diabetes mellitus type 2 oral med controlled 4. Hypokalemia. 5. Hyponatremia. 6. Osteoarthritis. 7. Osteoporosis. 8. Non-morbid obesity. 9. Aortic regurg 10. Severe protein-calorie malnutrition. 11. Gastroesophageal reflux disease. 12. Mixed hyperlipidemia. 13. Mild AR, TR ECHO 14. pulmonary HTN 15. anemia from acute illness 16. CKD II 17. multiple dental caries, teeth fractured below gum line PLAN: septic emboli ID consult Zosyn/VAnc ICU admission 07/31 ECHO pending 07/31 CT maxillofacial and head pending 07/31 carotid doppler pending ADmit WBC 21.3 07/31 13.3 d/w ID, may need possible bronch Admit T99.7 07/31 0400 100.4F severe malnutrition stop NS Begin PPN 07/31 Albumin 1.6 anemia sepsis Admit 10.7 07/31 8.3 monitor hyponatremia/hypokalemia ADmit Na 131 07/31 137 K 3.1 3.3 BUN 15 18 Cr 0.8 0.8 NS with 40K 75cc/hr on admit-change to PPN 07/31 06 KCL 20 meq x 1 admit 07/31 KCL 20 meq x 1 DM II FSBS SSI BS 117-132 DVT/GI prophylaxis SCD/EVA PPI Plan Plan For more details regarding further plans, please refer to the orders. BEST ARROYO MD 07/31/16 1008: IM PROGRESS NOTES- Assessment Assessment D/w .check for infectious and neoplastic etioilogy.CT chest reviewed. MARYAM. The patient was seen and examined by me. Chart reviewed and plan of care formulated. Discussed with, reviewed and agree with HIM ANALYST's notes, plan of care and orders with modifications as necessary. For more details regarding further plans, please refer to the orders. JOSÉ VIEIRA APRN Jul 31, 2016 07:38 BEST ARROYO MD Jul 31, 2016 10:08
[2016-07-31] MEDS ORDERED: POTASSIUM CHLORIDE 20 MEQ TABLET.ER. PO ONE (07:45)
[2016-07-31] MEDS: VANCOMYCIN PER PHARMACY MC PRN (08:12)
--- NOTE | 2016-07-31 08:54 | CONS ---
DATE OF CONSULTATION: 07/31/2016 PATIENT'S ROOM: ICU 5. REQUESTING PHYSICIAN: Dr. Bingham. REASON FOR CONSULTATION: Possible septic emboli. HISTORY OF PRESENT ILLNESS: The patient is a 70-year-old female with a history of type 2 diabetes and obesity who approximately the or so june underwent some dental extractions for some painful teeth. She states she was doing fairly well, but then developed dental pain, presented to [facility] on the 19 of July and was prescribed pain medications as well as 10 days of penicillin V. Since starting the antibiotics, she states she has not really felt a whole lot better, but over the last couple of days ago, has had increasing sweats, chills and fatigue. She had some nausea, some vomiting and was unable to eat secondary to pain. She called Dr. Bingham's office and referred to [facility] where she presented and shown to have a white blood cell count of 21.3. She underwent a CT scan of the abdomen and pelvis with contrast, which showed multiple round mass-like opacities seen throughout both lobes and the right middle lobe measuring 5 mm to 1.8 cm in size, some of them containing air. They were concerned that some of these could be septic emboli versus pulmonary mets. She then underwent a CT scan without contrast of her chest, which showed again multiple bilateral pulmonary nodules some of which are irregular and some of which are cavitary. She had received a dose of hydrocortisone, one dose of Zosyn, one dose of vancomycin and I was consulted. I have evaluated the antibiotics and continued both the vancomycin and Zosyn. An echo was performed; however, the results are currently pending. She did have one done in 01/2015, which showed mild aortic regurgitation, mild tricuspid regurgitation and EF of 55-60%. Currently, the patient is lying in the bed. She has a mild headache. She still has some dental pain. Denies any sinus congestion. Denies any gross chest pain. No cough or shortness of air, no hemoptysis. She had been a little bit constipated and she has been able to pass her urine without complications. Denies any falls or traumas. PAST MEDICAL HISTORY: Positive for osteoarthritis, morbid obesity, type 2 diabetes, osteoporosis, hypertension, hyperlipidemia, diverticulosis, hemorrhoids, aortic sclerosis, obesity, above-mentioned mitral valve regurgitation and above-mentioned dental issues. PAST SURGICAL HISTORY: Positive for recent dental extractions. REVIEW OF SYSTEMS: Otherwise negative except for as mentioned above. ALLERGIES: No known drug allergies. SOCIAL HISTORY: She was born in [place]. She does not participate much in outdoor activities. She has not been to any farms. She has a dog and a cat, but denies any scratches or trauma. She is no longer a smoker. She is a . She is retired. FAMILY HISTORY: Father had hypertension, congestive heart failure, heart disease. Mother diabetes. No known cancers or lymphomas or autoimmune diseases such as rheumatoid arthritis or lupus. CURRENT MEDICATIONS: Include Zosyn, vancomycin, hydrocortisone x 1 and Zofran. Other meds are available, have been reviewed in the chart. PHYSICAL EXAMINATION: VITAL SIGNS: Current temperature of 100.4, pulse of 57, respirations 16, blood pressure 133/61. She is satting 96% on 4 liters nasal cannula. CONSTITUTIONAL: She is alert. She is cooperative. She is in no acute distress, looks a little bit tired, but is pleasant. She wears glasses. HEENT: Her pupils are equal and reactive. She has some questionable early cataracts. She has normal conjunctivae, no conjunctival hemorrhages. Oral cavity; oropharynx is without petechia, but she has poor dentition. NECK: Supple, no tenderness, no JVD. LUNGS: Clear to auscultation. HEART: S1, S2 with a 1/6 murmur. ABDOMEN: Obese, soft, nontender, nondistended with positive bowel sounds. EXTREMITIES: Without clubbing or cyanosis. No gross edema. SKIN: Warm to touch without signs of rash. She has a PICC line in the right upper extremity without signs of complications. NEUROLOGIC: She moves all extremities. She was appropriate. PSYCHIATRIC: Affect was somewhat flat. LABORATORY VALUES: White count 13.3, hemoglobin 8.3, platelets of 418, neutrophils are 75. She did have 80 segs and 6 bands at presentation. Creatinine is 0.8, glucose 132. Normal liver function study tests. Albumin of 1.6. Urinalysis is not consistent with urinary tract infection. IMPRESSION: 1. Fever. 2. Leukocytosis. 3. Pulmonary nodules. 4. Recent dental extractions, had received penicillin V for 10 days. 5. Severe protein malnutrition. RECOMMENDATIONS: For now, continue vancomycin and Zosyn. We will follow up labs and cultures. We will CT the maxillofacial area of the head to rule out potential source of the abscess. Also, we will check an ANCA. Follow up may need bronchoscopy. Dr. Bingham, thank you for allowing me to participate in the patient's care. If you have any questions, please do not hesitate to contact me. GONZALO BYERS MD DR: KALIE/marcela JOB#: [id number] / [id number]
--- NOTE | 2016-07-31 09:27 | RAD ---
Lower neck duplex ultrasound, 07/31/2016: History: Septic emboli, possible infected thrombophlebitis Duplex evaluation of the internal jugular and subclavian veins was performed as requested, utilizing grayscale, color-flow and spectral Doppler analysis. Both internal jugular and subclavian veins are patent. No internal thrombus is seen. A catheter in the right subclavian vein is reportedly a PICC line. IMPRESSION: No evidence of thrombosis in either internal jugular or subclavian vein.
--- NOTE | 2016-07-31 10:16 | PDOC ---
Provider Note Provider Note dictated SCOTTIE VILLEGAS MD Jul 31, 2016 10:16
[2016-07-31] MEDS ORDERED: 0.9 % SODIUM CHLORIDE 10 ML DISP.SYRIN. IV PRN (10:45)
[2016-07-31] MEDS: CHOLECALCIFEROL (VITAMIN D3) 1,000 UNIT TABLET PO SCH (11:09)
[2016-07-31] MEDS: PANTOPRAZOLE 40 MG TABLET.DR. PO SCH (11:09)
[2016-07-31] MEDS: VANCOMYCIN 1.25 GM in IV NORMAL SALINE 250ML 250 ML IV SCH ×2 (11:09→20:16)
[2016-07-31] MEDS: AMINO AC 3%/ELECTROLYTE/GLYCER 1,000 ML IV SCH ×2 (11:09→20:16)
--- NOTE | 2016-07-31 11:53 | CONS ---
DATE OF CONSULTATION: 07/31/2016 PULMONARY CONSULTATION ATTENDING PHYSICIAN: Dr. Evangelist Bingham. REASON FOR CONSULTATION: Lung nodules, possible septic emboli. HISTORY OF PRESENT ILLNESS: The patient is a 70-year-old pleasant female with type 2 diabetes and underlying obesity and minimal history of tobacco use in the past. She was seen at the end of June by dentist and had dental extraction for painful teeth. She then later developed dental pain and was seen on the 19 of July and was prescribed pain medication as well as 10 days of penicillin. The patient was not feeling well. She had some nausea, some vomiting and was unable to eat secondary to pain. She was seen by Dr. Bingham at the office and was found to have a white cell count of 21,000. She underwent CT scan of the abdomen and pelvis which was reviewed by me and it showed nodular densities throughout the lower lobes, few of them had cavitation. Concern was raised regarding the possibility of septic emboli. As a result consultation was asked from me. I ordered a CT chest, which was done last night. I have reviewed the patient's CT chest. There are bilateral pulmonary nodules, most of them are smooth and a few of them are with cavitation. The patient has no pleural effusion on the right and had minimal pleural thickening on the left. The patient has no recent weight loss. She states she had prior mammograms which were reportedly normal. She had no problems with PAP smears in the past. She has no rash. She has been started on antibiotic. A transthoracic echocardiogram was done and there is no report of any vegetation. Pulmonary artery pressure was 67. Consultation requested for further evaluation and management. PAST MEDICAL HISTORY: Significant for osteoarthritis, morbid obesity, type 2 diabetes, osteoporosis, hypertension, hyperlipidemia, diverticulosis and recent dental issues. PAST SURGICAL HISTORY: Recent dental extractions. SYSTEMS REVIEW: Twelve-point system obtained. Pertinent positives discussed in my history of present illness, otherwise noncontributory. All systems that were negative were reviewed as well. ALLERGIES: None. MEDICATIONS: All reviewed as listed in the MRAD including broad-spectrum antibiotic, vancomycin and Zosyn. SOCIAL HISTORY: Smoked for about 10-15 years and quit more than 20 years ago. PHYSICAL EXAMINATION: VITAL SIGNS: T-max is 100.4, blood pressure is stable, pulse ox 96% on 4 liters. HEENT: Sclerae nonicteric. NECK: Supple. LUNGS: Diminished breath sounds. CARDIOVASCULAR: Regular rate and rhythm. ABDOMEN: Soft, obese. EXTREMITIES: With no pitting edema. LABORATORY DATA: Reviewed. White cell count 21.3 on admission, now down to 13.3. Sed rate is 113. BUN is 18, creatinine 0.8. C-reactive protein 229. IMPRESSION: 1. Bilateral pulmonary nodules, most of them are smooth, few of them are slightly irregular and few of them with cavitation. This is a patient with a dental extraction done and continued to have pain and had some nausea and vomiting, in addition had a white cell count 21,000. I think most likely etiology of these nodules appears to be infectious and as such cannot exclude the possibility of septic emboli and will need a transesophageal echo to rule out any endocarditis. The other likely possibility would include malignancy, although she lacks symptoms of any malignancy. Pulmonary vasculitis would also be in the differential diagnosis. Her sed rate is markedly high. 2. Minimal history of tobacco use. 3. Recent dental extraction leading to pain and leukocytosis despite on penicillin V. 4. Underlying obesity. 5. Underlying diabetes. 6. Severe protein-calorie malnutrition with albumin of 1.6. RECOMMENDATIONS: 1. Would continue present broad-spectrum antibiotics. 2. Follow blood cultures. 3. Consider Cardiology consult for transesophageal echo. 4. Sed rate is high. We will also obtain c-ANCA and p-ANCA to rule out any Verdin's granulomatosis/vasculitis. We would also obtain complement levels. 5. If the transesophageal echo does not reveal any right-sided vegetations, then will consider CT-guided biopsy of the largest lung nodule. This can be done later or as an outpatient. 6. Follow ID recommendations. 7. Discuss with Dr. Evangelist Bingham. SCOTTIE VILLEGAS MD DR: MARÍA/marcela JOB#: [id number] / [id number] REINA
--- NOTE | 2016-07-31 12:30 | PDOC2 ---
CARDIAC CONSULT DATE OF CONSULT Date of Consult DATE: 07/31/16 TIME: 12:29 REASON FOR CONSULT Reason for Consult: cavitary lesions - ? endocarditis - need for MARYAM REFERRING PHYSICIAN Referring Physician: Dr. Kaleb King SOURCE Source: Chart review, Patient HISTORY OF PRESENT ILLNESS HISTORY OF PRESENT ILLNESS 70 year old female admitted through the ER with weakness, malaise and fatigue. Had teeth extracted earlier this month followed by 2 days of nausea and vomiting. Presented to ER on 07/19/2016 for evaluation and underwent CT scan of head demonstrating maxillary sinusitis and a fracture of the right lower first molar. Discharged home on antibiotics. Returned 07/27/2016 with same symptoms and found to have WBC count of 18; declined hospitalization. Returned 07/30/2016 with same symptoms and low grade fever. CT scan of abdomen and pelvis with ? of pulmonary septic emboli. WBC 21.3 and hgb of 10.7. CT of chest subsequently demonstrated multiple bilateral pulmonary nodules with ? of cavitary lesions. Admitted for IV abx and further evaluation. Reason for Visit: needs MARYAM PAST MEDICAL HISTORY Cardiovascular: HTN, Hyperlipidemia, Other (aortic sclerosis) Pulmonary: No pertinent hx CENTRAL NERVOUS SYSTEM: Other (none) GI: Diverticulosis, Other (colon polyps) Heme/Onc: Anemia NOS Hepatobiliary: No pertinent hx Psych: No pertinent hx Musculoskeletal: Osteoarthritis Rheumatologic: No pertinent hx Infectious disease: No pertinent hx ENT: Sincusitis Renal/: Chronic renal insuff Endocrine: Diabetes, Osteoporosis Dermatology: No pertinent hx PAST SURGICAL HISTORY Past Surgical History: No pertinent history FAMILY HISTORY Family History: Coronary Artery Disease, Heart Disease (CHF) SOCIAL HISTORY Smoke: Quit (> 30 years ago) ALCOHOL: none Drugs: None CURRENT MEDICATIONS CURRENT MEDICATIONS Current Medications Medications (Trade) Dose Ordered Sig/Riley Route PRN Reason Start Time Stop Time Status Last Admin Dose Admin Sodium Chloride 1,000 ml @ 1,000 mls/hr 1X ONCE IV 07/30/16 13:15 07/30/16 14:14 DC 07/30/16 13:19 Dextrose (Dextrose 50%-Water Syringe) 25 gm 1X ONCE IV 07/30/16 13:45 07/30/16 13:46 DC 07/30/16 13:53 Hydrocortisone Sodium Succinate (Solu-CORTEF) 100 mg 1X ONCE IV 07/30/16 14:15 07/30/16 14:16 DC 07/30/16 15:21 Iohexol (Omnipaque 300 Mg/ml) 75 ml 1X ONCE IV 07/30/16 14:15 07/30/16 14:16 DC 07/30/16 14:28 Piperacillin Sod/ Tazobactam Sod 3.375 gm/Sodium Chloride 50 ml @ 100 mls/hr 1X ONCE IV 07/30/16 15:30 07/30/16 15:59 DC 07/30/16 17:42 Vancomycin HCl (Vanco Per Pharmacy) 1 each PRN DAILY PRN MC SEE COMMENTS 07/30/16 16:30 07/31/16 08:12 Vancomycin HCl 2 gm/Sodium Chloride 500 ml @ 250 mls/hr ONCE ONCE IV 07/30/16 17:00 07/30/16 18:59 DC 07/30/16 20:00 Piperacillin Sod/ Tazobactam Sod 4.5 gm/Sodium Chloride 100 ml @ 200 mls/hr Q6HRS IV 07/31/16 00:00 07/31/16 06:37 Acetaminophen/ Hydrocodone Bitart (Lortab 5/325) 1 tab PRN Q6HRS PRN PO PAIN 07/30/16 17:45 07/31/16 03:36 Acetaminophen (Tylenol) 650 mg PRN Q6HRS PRN PO MILD PAIN / TEMP 07/30/16 17:45 07/31/16 11:09 Potassium Chloride 40 meq/ Sodium Chloride 1,020 ml @ 75 mls/hr [id number] IV 07/30/16 18:00 07/31/16 07:40 DC 07/30/16 20:01 Potassium Chloride (Klor-Con) 20 meq 1X ONCE PO 07/30/16 19:00 07/30/16 19:01 DC 07/30/16 20:04 Vancomycin HCl 1.25 gm/Sodium Chloride 250 ml @ 167 mls/hr Q12H IV 07/31/16 08:00 07/31/16 11:09 Amino Acids/ Glycerin/ Electrolytes 1,000 ml @ 80 mls/hr [id number] IV 07/31/16 07:45 07/31/16 11:09 Potassium Chloride (Klor-Con) 20 meq 1X ONCE PO 07/31/16 07:45 07/31/16 07:46 DC 07/31/16 11:09 Vitamin D (Vitamin D3) 1,000 unit DAILY PO 07/31/16 09:00 07/31/16 11:09 Pantoprazole Sodium (Protonix) 40 mg DAILYAC PO 07/31/16 09:00 07/31/16 11:09 ALLERGIES ALLERGIES: Coded Allergies: No Known Drug Allergies (Unverified , 07/19/16) ROS General: YES: Fatigue, Malaise PSYCHOLOGICAL ROS: No: Anxiety, Behavioral Disorder, Concentration difficultie , Decreased libido, Depression, Disorientation, Hallucinations, Hostility, Irritablity, Memory difficulties, Mood Swings, Obsessive thoughts, Physical abuse, Sexual abuse, Sleep disturbances, Suicidal ideation, Other Eyes: No Blurry vision, No Decreased vision, No Double vision, No Dry eyes, No Excessive tearing, No Eye Pain, No Itchy Eyes, No Loss of vision, No Photophobia , No Scotomata, No Uses contacts, No Uses glasses, No Other HEENT: YES: Other (dental pain ) ALLERGY AND IMMUNOLOGY: No: Hives, Insect Bite Sensitivity, Itchy/Watery Eyes, Nasal Congestion, Post Nasal Drip, Seasonal Allergies, Other Hematological and Lymphatic: No: Bleeding Problems, Blood Clots, Blood Transfusions, Brusing, Night Sweats, Pallor, Swollen Lymph Nodes, Other ENDOCRINE: No: Breast Changes, Galactorrhea, Hair Pattern Changes, Hot Flashes , Malaise/lethargy, Mood Swings, Palpitations, Polydipsia/polyuria, Skin Changes , Temperature Intolerance, Unexpected Weight Changes, Other Respiratory: No: Cough, Hemoptysis, Orthopnea, Pleuritic Pain, Shortness of breath, SOB with excertion, Sputum Changes, Stridor, Tachypnea, Wheezing, Other Cardiovascular: No Chest Pain, No Palpitations, No Orthopnea, No Paroxysmal Noc. Dyspnea, No Edema, No Lt Headedness, No Other Gastrointestinal: Yes Nausea, Yes Vomiting Genitourinary: No Dysuria, No Frequency, No Incontinence, No Hematuria, No Retention, No Discharge, No Urgency, No Pain, No Flank Pain, No Other Musculoskeletal: No Gait Disturbance, No Joint Pain, No Joint Stiffness, No Joint Swelling, No Muscle Pain, No Muscular Weakness, No Pain In:, No Swelling In:, No Other Neurological: No Behavorial Changes, No Bowel/Bladder ControlChng, No Confusion , No Dizziness, No Gait Disturbance, No Headaches, No Impaired Coord/balance, No Memory Loss, No Numbness/Tingling, No Seizures, No Speech Problems, No Tremors, No Visual Changes, No Weakness, No Other Skin: No Dry Skin, No Eczema, No Hair Changes, No Lumps, No Mole Changes, No Mottling, No Nail Changes, No Pruritus, No Rash, No Skin Lesion Changes, No Other, No Acne PHYSICAL EXAM General: Alert, Oriented X3, Cooperative HEENT: Atraumatic, PERRLA, 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 (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86 x10^6/uL (3.50-5.40) Hemoglobin 10.7 g/dL (12.0-15.5) Hematocrit 32.9 % (36.0-47.0) Mean Corpuscular Volume 85 fL (79-100) Mean Corpuscular Hemoglobin 28 pg (25-35) Mean Corpuscular Hemoglobin Concent 33 g/dL (31-37) Red Cell Distribution Width 15.1 % (11.5-14.5) Platelet Count 592 x10^3/uL (140-400) Neutrophils (%) (Auto) 82 % (31-73) Lymphocytes (%) (Auto) 11 % (24-48) Monocytes (%) (Auto) 6 % (0-9) Eosinophils (%) (Auto) 0 % (0-3) Basophils (%) (Auto) 0 % (0-3) Neutrophils # (Auto) 17.6 x10^3uL (1.8-7.7) Lymphocytes # (Auto) 2.4 x10^3/uL (1.0-4.8) Monocytes # (Auto) 1.3 x10^3/uL (0.0-1.1) Eosinophils # (Auto) 0.0 x10^3/uL (0.0-0.7) Basophils # (Auto) 0.0 x10^3/uL (0.0-0.2) Segmented Neutrophils % 80 % (35-66) Band Neutrophils % 6 % (0-9) Lymphocytes % 8 % (24-48) Monocytes % 6 % (0-10) Platelet Estimate Increased (ADEQUATE) O2 Saturation 95 % (92-99) Arterial Blood pH 7.55 (7.35-7.45) Arterial Blood pCO2 at Patient Temp 28 mmHg (35-46) Arterial Blood pO2 at Patient Temp 68 mmHg (65-108) Arterial Blood HCO3 24 mmol/L (21-28) Arterial Blood Base Excess 2 mmol/L (-3-3) FiO2 21.0 Sodium Level 131 mmol/L (136-145) Potassium Level 3.1 mmol/L (3.5-5.1) Chloride Level 93 mmol/L (98-107) Carbon Dioxide Level 29 mmol/L (21-32) Anion Gap 9 (6-14) Blood Urea Nitrogen 15 mg/dL (7-20) Creatinine 0.8 mg/dL (0.6-1.0) Estimated GFR (Cockcroft-Gault) 70.9 BUN/Creatinine Ratio 19 (6-20) Glucose Level 60 mg/dL (70-99) Lactic Acid Level 1.2 mmol/L (0.4-2.0) Calcium Level 9.2 mg/dL (8.5-10.1) Total Bilirubin 0.7 mg/dL (0.2-1.0) Aspartate Amino Transf (AST/SGOT) 22 U/L (15-37) Alanine Aminotransferase (ALT/SGPT) 31 U/L (14-59) Alkaline Phosphatase 76 U/L (46-116) C-Reactive Protein High Sensitivity 229.07 mg/L (0.00-3.00) Total Protein 8.1 g/dL (6.4-8.2) Albumin 2.1 g/dL (3.4-5.0) Albumin/Globulin Ratio 0.4 (1.0-1.7) Urine Collection Type U cath Urine Color Yellow Urine Clarity Clear Urine pH 5.5 Urine Specific [place] 1.015 Urine Protein Negative mg/dL (NEG-TRACE) Urine Glucose (UA) Negative mg/dL (NEG) Urine Ketones (Stick) 15 mg/dL (NEG) Urine Blood Negative (NEG) Urine Nitrite Negative (NEG) Urine Bilirubin Moderate (NEG) Urine Urobilinogen Dipstick 1.0 mg/dL (0.2 mg/dL) Urine Leukocyte Esterase Negative (NEG) Urine RBC 0 /HPF (0-2) Urine WBC 1-4 /HPF (0-4) Urine Squamous Epithelial Cells Occ /LPF Urine Amorphous Sediment Present /HPF Urine Bacteria 0 /HPF (0-FEW) Urine Mucus Mod /LPF Glucose (Fingerstick) 123 mg/dL (70-99) 117 mg/dL (70-99) Test 07/31/16 04:55 White Blood Count 13.3 x10^3/uL (4.0-11.0) Red Blood Count 2.98 x10^6/uL (3.50-5.40) Hemoglobin 8.3 g/dL (12.0-15.5) Hematocrit 25.4 % (36.0-47.0) Mean Corpuscular Volume 85 fL (79-100) Mean Corpuscular Hemoglobin 28 pg (25-35) Mean Corpuscular Hemoglobin Concent 33 g/dL (31-37) Red Cell Distribution Width 14.9 % (11.5-14.5) Platelet Count 418 x10^3/uL (140-400) Neutrophils (%) (Auto) 75 % (31-73) Lymphocytes (%) (Auto) 16 % (24-48) Monocytes (%) (Auto) 8 % (0-9) Eosinophils (%) (Auto) 0 % (0-3) Basophils (%) (Auto) 1 % (0-3) Neutrophils # (Auto) 9.9 x10^3uL (1.8-7.7) Lymphocytes # (Auto) 2.1 x10^3/uL (1.0-4.8) Monocytes # (Auto) 1.1 x10^3/uL (0.0-1.1) Eosinophils # (Auto) 0.0 x10^3/uL (0.0-0.7) Basophils # (Auto) 0.2 x10^3/uL (0.0-0.2) Erythrocyte Sedimentation Rate 113 (0-25) Sodium Level 137 mmol/L (136-145) Potassium Level 3.3 mmol/L (3.5-5.1) Chloride Level 102 mmol/L (98-107) Carbon Dioxide Level 27 mmol/L (21-32) Anion Gap 8 (6-14) Blood Urea Nitrogen 18 mg/dL (7-20) Creatinine 0.8 mg/dL (0.6-1.0) Estimated GFR (Cockcroft-Gault) 70.9 BUN/Creatinine Ratio 23 (6-20) Glucose Level 132 mg/dL (70-99) Calcium Level 7.8 mg/dL (8.5-10.1) Total Bilirubin 0.5 mg/dL (0.2-1.0) Aspartate Amino Transf (AST/SGOT) 21 U/L (15-37) Alanine Aminotransferase (ALT/SGPT) 24 U/L (14-59) Alkaline Phosphatase 55 U/L (46-116) Total Protein 6.3 g/dL (6.4-8.2) Albumin 1.6 g/dL (3.4-5.0) Albumin/Globulin Ratio 0.3 (1.0-1.7) IMAGES IMAGES CT chest: Multiple bilateral pulmonary nodules, some of which are irregular and some which are cavitary. Possible etiologies include septic pulmonary emboli, Dominique's granulomatosis, and pulmonary metastases (including from squamous cell carcinoma, GI adenocarcinoma, cervical cancer, sarcomas, or transitional cell carcinoma ). EKG EKG no acute changes ECHOCARDIOGRAM ECHOCARDIOGRAM 01/2015: TTE: Left ventricle systolic function is normal. The Ejection Fraction is estimated at 55-60%. There is normal LV segmental wall motion. Mild aortic regurgitation. Mild tricuspid regurgitation. The PA pressure was estimated at 45 mmHg. There is no evidence of significant pericardial effusion. ASSESSMENT/PLAN ASSESSMENT/PLAN 1. bilateral pulmonary nodules with ? of cavitary lesions recent dental extractions and leukocytosis need MARYAM to evaluate for endocarditis scheduled for 12 noon on 08/06/2016 NPO [place] Wednesday 2. aortic regurgitation mild on echo 2014 3. HTN may benefit from therapy 4. obesity 5. DM, II Problems: RAMIN BOYLE APRN Jul 31, 2016 12:30
--- NOTE | 2016-07-31 16:39 | CARD ---
APPROVED REPORT EXAM: Two-dimensional and M-mode echocardiogram with Doppler and color Doppler. Other Information Quality : Good INDICATION Infection:Rule out subacute bacterial endocarditis 2D DIMENSIONS RVDd3.7 (2.9-3.5cm)Left Atrium(2D)4.3 (1.6-4.0cm) IVSd1.4 (0.7-1.1cm)Aortic Root(2D)3.0 (2.0-3.7cm) LVDd4.9 (3.9-5.9cm)LVOT Diameter2.2 (1.8-2.4cm) PWd1.1 (0.7-1.1cm)LVDs2.5 (2.5-4.0cm) FS (%) 30.0 %SV88.9 ml LVEF(%)60.0 (>50%) Aortic Valve AoV Peak Wojciech.173.8cm/sAoV VTI32.5cm AO Peak GR.12.1mmHgLVOT VTI 29.06cm AO Mean GR.6mmHgAVA (VTI)3.40cm2 AI P 1/2 [id number] Mitral Valve MV E Tdopxtyo038.8cm/sMV DECEL [id number] MV A Oclhktyw20.4cm/sE/A Ratio2.2 TDI Lateral E' P. V10.49cm/sMedial E' P. V6.50cm/s E/Lateral E'13.7E/Medial E'22.1 Tricuspid Valve TR P. Capwgywf326ei/sRAP [id number] TR Peak Gr.91fhXgQMCB96ppOz Pulmonary Vein S1 Ttqedvzz07.8cm/sS2 Agswjpao54.90cm/s D2 Zycjbfac77.9cm/sPVa [id number] LEFT VENTRICLE The left ventricle is normal size. There is mild asymmetric septal left ventricular hypertrophy. The left ventricular systolic function is normal and the ejection fraction is within normal range. The Ej ection Fraction is 60%. There is normal LV segmental wall motion. RIGHT VENTRICLE The right ventricle is normal size. The right ventricular systolic function is normal. ATRIA The left atrium is mildly dilated. The right atrium size is normal. The interatrial septum is intact with no evidence for an atrial septal defect or patent foramen ovale as noted on 2-D or Doppler imagi ng. AORTIC VALVE The aortic valve is mildly thickened but opens well. Doppler and Color Flow revealed moderate aortic regurgitation. There is no significant aortic valvular stenosis. MITRAL VALVE The mitral valve is calcified but opens well. Mitral annular calcification is mild. There is no evide nce of mitral valve prolapse. There is no mitral valve stenosis. Doppler and Color-flow revealed mild mitral regurgitation. TRICUSPID VALVE The tricuspid valve is normal in structure Doppler and Color Flow revealed moderate to severe tricusp id regurgitation. There is severe pulmonary hypertension. The PA pressure was estimated at 67 mmHg. T here is no tricuspid valve stenosis. PULMONIC VALVE The pulmonary valve is normal in structure and function. Doppler and Color Flow revealed mild pulmoni c valvular regurgitation. There is no pulmonic valvular stenosis. GREAT VESSELS The aortic root is normal in size. The ascending aorta is normal in size. The IVC is normal in size a nd collapses >50% with inspiration. PERICARDIAL EFFUSION There is no evidence of significant pericardial effusion. Critical Notification Critical Value: No <Conclusion> The left ventricular systolic function is normal and the ejection fraction is within normal range. The Ejection Fraction is 60%. The left atrium is mildly dilated. The right atrium size is normal. Doppler and Color Flow revealed moderate aortic regurgitation. The aortic valve is mildly thickened but opens well. Doppler and Color-flow revealed mild mitral regurgitation. The mitral valve is calcified but opens well. Mitral annular calcification is mild. Doppler and Color Flow revealed moderate to severe tricuspid regurgitation. There is severe pulmonary hypertension. The PA pressure was estimated at 67 mmHg. Doppler and Color Flow revealed mild pulmonic valvular regurgitation. There is no evidence of significant pericardial effusion.
[2016-07-31] MEDS ORDERED: IV RINGERS,LACTATED 1000ML 1,000 ML IV SCH (18:29)
[2016-07-31] MEDS: SIMVASTATIN 20 MG TABLET PO SCH (20:16)
[2016-08-01] VITALS (13 sets, daily range): BP systolic 115–179; BP diastolic 54–78
[2016-08-01] MEDS: ACETAMINOPHEN 325 MG TABLET. PO PRN ×2 (02:15→12:40)
[2016-08-01] MEDS: PIPERACILLIN/TAZOBACTAM 4.5 GM in IV NORMAL SALINE 100ML 100 ML IV SCH ×4 (05:37→22:41)
[2016-08-01 08:14] LABS: ALBUMIN 1.3 g/dL (3.4-5.0); ALBUMIN/GLOBULIN RATIO 0.3 (1.0-1.7); CALCIUM 6.6 mg/dL (8.5-10.1); CREATININE 0.6 mg/dL (0.6-1.0); GFR 98.8; TOTAL BILIRUBIN 0.4 mg/dL (0.2-1.0); TOTAL PROTEIN 5.3 g/dL (6.4-8.2)
--- NOTE | 2016-08-01 08:15 | PDOC ---
PULMONARY PROGRESS NOTES Subjective on 02, sob is better. no pain, has occ cough, is on home bipap at night Vitals Vital Signs Date Time Temp Pulse Resp B/P (MAP) Pulse Ox O2 Delivery O2 Flow Rate FiO2 08/01/16 06:07 48 20 142/67 (92) 99 Nasal Cannula 3.0 08/01/16 03:54 98.9 98.9 Comments ros as mentioned as above other sys otherwise neg ROS: No Nausea, No Chest Pain, No Abdominal Pain, No Increase Cough General: Alert, Oriented X4 HEENT: Other (nc at perrl, shallow oropharynx, nose clear, neck no lap, thyromegaly) Lungs: Crackles Cardiovascular: S1, S2 Abdomen: Soft, Non-tender, Other (no mass) Neuro Exam: Alert, Oriented Extremities: Other (edema) Skin: Warm Labs Laboratory Tests Test 07/30/16 13:12 07/30/16 13:32 07/30/16 13:45 07/30/16 15:09 White Blood Count 21.3 x10^3/uL (4.0-11.0) Red Blood Count 3.86 x10^6/uL (3.50-5.40) Hemoglobin 10.7 g/dL (12.0-15.5) Hematocrit 32.9 % (36.0-47.0) Mean Corpuscular Volume 85 fL (79-100) Mean Corpuscular Hemoglobin 28 pg (25-35) Mean Corpuscular Hemoglobin Concent 33 g/dL (31-37) Red Cell Distribution Width 15.1 % (11.5-14.5) Platelet Count 592 x10^3/uL (140-400) Neutrophils (%) (Auto) 82 % (31-73) Lymphocytes (%) (Auto) 11 % (24-48) Monocytes (%) (Auto) 6 % (0-9) Eosinophils (%) (Auto) 0 % (0-3) Basophils (%) (Auto) 0 % (0-3) Neutrophils # (Auto) 17.6 x10^3uL (1.8-7.7) Lymphocytes # (Auto) 2.4 x10^3/uL (1.0-4.8) Monocytes # (Auto) 1.3 x10^3/uL (0.0-1.1) Eosinophils # (Auto) 0.0 x10^3/uL (0.0-0.7) Basophils # (Auto) 0.0 x10^3/uL (0.0-0.2) Segmented Neutrophils % 80 % (35-66) Band Neutrophils % 6 % (0-9) Lymphocytes % 8 % (24-48) Monocytes % 6 % (0-10) Platelet Estimate Increased (ADEQUATE) O2 Saturation 95 % (92-99) Arterial Blood pH 7.55 (7.35-7.45) Arterial Blood pCO2 at Patient Temp 28 mmHg (35-46) Arterial Blood pO2 at Patient Temp 68 mmHg (65-108) Arterial Blood HCO3 24 mmol/L (21-28) Arterial Blood Base Excess 2 mmol/L (-3-3) FiO2 21.0 Sodium Level 131 mmol/L (136-145) Potassium Level 3.1 mmol/L (3.5-5.1) Chloride Level 93 mmol/L (98-107) Carbon Dioxide Level 29 mmol/L (21-32) Anion Gap 9 (6-14) Blood Urea Nitrogen 15 mg/dL (7-20) Creatinine 0.8 mg/dL (0.6-1.0) Estimated GFR (Cockcroft-Gault) 70.9 BUN/Creatinine Ratio 19 (6-20) Glucose Level 60 mg/dL (70-99) Lactic Acid Level 1.2 mmol/L (0.4-2.0) Calcium Level 9.2 mg/dL (8.5-10.1) Total Bilirubin 0.7 mg/dL (0.2-1.0) Aspartate Amino Transf (AST/SGOT) 22 U/L (15-37) Alanine Aminotransferase (ALT/SGPT) 31 U/L (14-59) Alkaline Phosphatase 76 U/L (46-116) C-Reactive Protein High Sensitivity 229.07 mg/L (0.00-3.00) Total Protein 8.1 g/dL (6.4-8.2) Albumin 2.1 g/dL (3.4-5.0) Albumin/Globulin Ratio 0.4 (1.0-1.7) Glucose (Fingerstick) 58 mg/dL (70-99) 123 mg/dL (70-99) Urine Collection Type U cath Urine Color Yellow Urine Clarity Clear Urine pH 5.5 Urine Specific [place] 1.015 Urine Protein Negative mg/dL (NEG-TRACE) Urine Glucose (UA) Negative mg/dL (NEG) Urine Ketones (Stick) 15 mg/dL (NEG) Urine Blood Negative (NEG) Urine Nitrite Negative (NEG) Urine Bilirubin Moderate (NEG) Urine Urobilinogen Dipstick 1.0 mg/dL (0.2 mg/dL) Urine Leukocyte Esterase Negative (NEG) Urine RBC 0 /HPF (0-2) Urine WBC 1-4 /HPF (0-4) Urine Squamous Epithelial Cells Occ /LPF Urine Amorphous Sediment Present /HPF Urine Bacteria 0 /HPF (0-FEW) Urine Mucus Mod /LPF Test 07/31/16 01:00 07/31/16 03:43 07/31/16 04:55 Nasal Screen MRSA (PCR) Negative (Negative) Glucose (Fingerstick) 117 mg/dL (70-99) White Blood Count 13.3 x10^3/uL (4.0-11.0) Red Blood Count 2.98 x10^6/uL (3.50-5.40) Hemoglobin 8.3 g/dL (12.0-15.5) Hematocrit 25.4 % (36.0-47.0) Mean Corpuscular Volume 85 fL (79-100) Mean Corpuscular Hemoglobin 28 pg (25-35) Mean Corpuscular Hemoglobin Concent 33 g/dL (31-37) Red Cell Distribution Width 14.9 % (11.5-14.5) Platelet Count 418 x10^3/uL (140-400) Neutrophils (%) (Auto) 75 % (31-73) Lymphocytes (%) (Auto) 16 % (24-48) Monocytes (%) (Auto) 8 % (0-9) Eosinophils (%) (Auto) 0 % (0-3) Basophils (%) (Auto) 1 % (0-3) Neutrophils # (Auto) 9.9 x10^3uL (1.8-7.7) Lymphocytes # (Auto) 2.1 x10^3/uL (1.0-4.8) Monocytes # (Auto) 1.1 x10^3/uL (0.0-1.1) Eosinophils # (Auto) 0.0 x10^3/uL (0.0-0.7) Basophils # (Auto) 0.2 x10^3/uL (0.0-0.2) Erythrocyte Sedimentation Rate 113 (0-25) Sodium Level 137 mmol/L (136-145) Potassium Level 3.3 mmol/L (3.5-5.1) Chloride Level 102 mmol/L (98-107) Carbon Dioxide Level 27 mmol/L (21-32) Anion Gap 8 (6-14) Blood Urea Nitrogen 18 mg/dL (7-20) Creatinine 0.8 mg/dL (0.6-1.0) Estimated GFR (Cockcroft-Gault) 70.9 BUN/Creatinine Ratio 23 (6-20) Glucose Level 132 mg/dL (70-99) Calcium Level 7.8 mg/dL (8.5-10.1) Total Bilirubin 0.5 mg/dL (0.2-1.0) Aspartate Amino Transf (AST/SGOT) 21 U/L (15-37) Alanine Aminotransferase (ALT/SGPT) 24 U/L (14-59) Alkaline Phosphatase 55 U/L (46-116) Total Protein 6.3 g/dL (6.4-8.2) Albumin 1.6 g/dL (3.4-5.0) Albumin/Globulin Ratio 0.3 (1.0-1.7) Medications Active Scripts Medications Dose Route/Sig Max Daily Dose Days Date Category Metronidazole 70 Gm Gel.w.appl 70 Gm VG 07/31/16 Reported Vitamin D3 (Cholecalciferol (Vitamin D3)) 1,000 Unit Tablet 1,000 Unit PO 07/31/16 Reported Tricor (Fenofibrate Nanocrystallized) 145 Mg Tablet 145 Mg PO DAILY 07/31/16 Reported Trandolapril 4 Mg Tablet 4 Mg PO 07/31/16 Reported Simvastatin 20 Mg Tablet 20 Mg PO HS 07/31/16 Reported Protonix (Pantoprazole Sodium) 40 Mg Tablet.dr 40 Mg PO DAILY 07/31/16 Reported Penicillin V Potassium 500 Mg Tablet 1 Tab PO QID 07/19/16 Rx Naprosyn (Naproxen) 500 Mg Tablet 1 Tab PO BID 07/19/16 Rx Hydrocodone-Apap 5-325 (Hydrocodone Bit/Acetaminophen) 1 Each Tablet 1-2 Tab PO PRN Q6HRS PRN 5 07/19/[address] reviewed, Multiple bilateral pulmonary nodules, some of which are irregular and some which are cavitary. Impression . 1. Bilateral pulmonary nodules, most of them are smooth, few of them are slightly irregular and few of them with cavitation. This is a patient with a dental extraction done and continued to have pain and had some nausea and vomiting, in addition had a white cell count 21,000. I think most likely etiology of these nodules appears to be infectious and as such cannot exclude the possibility of septic emboli and will need a transesophageal echo to rule out any endocarditis. The other likely possibility would include malignancy, although she lacks symptoms of any malignancy. Pulmonary vasculitis would also be in the differential diagnosis. Her sed rate is markedly high. 2. Minimal history of tobacco use. 3. Recent dental extraction leading to pain and leukocytosis despite on penicillin V. 4. Underlying obesity. 5. Underlying diabetes. 6. Severe protein-calorie malnutrition with albumin of 1.6. 7. [place] Plan . RECOMMENDATIONS: 1. Would continue present broad-spectrum antibiotics. 2. Follow blood cultures. 3. manda on wednesday 4. Sed rate is high. fu c-ANCA and p-ANCA to rule out any Verdin's granulomatosis/vasculitis. fu complement levels. 5. If the transesophageal echo does not reveal any right-sided vegetations, then will consider CT-guided biopsy of the largest lung nodule. This can be done later or as an outpatient. 6. Follow ID recommendations. 7. bipap during sleep. discussed w rn, rt, pt JAVED ANDREWS MD Aug 01, 2016 08:15
[2016-08-01 08:20] LABS: BASO % 0 % (0-3); EOS % 0 % (0-3); HEMATOCRIT 23.5 % (36.0-47.0); HEMOGLOBIN 7.7 g/dL (12.0-15.5); LYMPH # 2.1 x10^3/uL (1.0-4.8); LYMPH % 20 % (24-48); MEAN CORPUSCULAR HEMOGLOBIN 29 pg (25-35); MEAN CORPUSCULAR HGB CONC 33 g/dL (31-37); MEAN CORPUSCULAR VOLUME 87 fL (79-100); MONO % 8 % (0-9); NEUT % 71 % (31-73); PLATELET COUNT 356 x10^3/uL (140-400); RED BLOOD COUNT 2.71 x10^6/uL (3.50-5.40); RED CELL DISTRIBUTION WIDTH 14.7 % (11.5-14.5); WHITE BLOOD COUNT 10.5 x10^3/uL (4.0-11.0)
[2016-08-01] MEDS: VANCOMYCIN PER PHARMACY MC PRN (08:41)
[2016-08-01] MEDS: PANTOPRAZOLE 40 MG TABLET.DR. PO SCH (09:08)
[2016-08-01] MEDS: CHOLECALCIFEROL (VITAMIN D3) 1,000 UNIT TABLET PO SCH (09:08)
[2016-08-01] MEDS: AMINO AC 3%/ELECTROLYTE/GLYCER 1,000 ML IV SCH ×2 (09:09→22:42)
--- NOTE | 2016-08-01 09:32 | PDOC ---
Infectious Disease Note Subjective Subjective Comfortable, denies pain. Left ear feels a little "full." Diminished appetite, tried to eat but not very hungry. 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 clean Labs Lab Laboratory Tests Test 08/01/16 07:45 White Blood Count 10.5 x10^3/uL (4.0-11.0) Red Blood Count 2.71 x10^6/uL (3.50-5.40) Hemoglobin 7.7 g/dL (12.0-15.5) Hematocrit 23.5 % (36.0-47.0) Mean Corpuscular Volume 87 fL (79-100) Mean Corpuscular Hemoglobin 29 pg (25-35) Mean Corpuscular Hemoglobin Concent 33 g/dL (31-37) Red Cell Distribution Width 14.7 % (11.5-14.5) Platelet Count 356 x10^3/uL (140-400) Neutrophils (%) (Auto) 71 % (31-73) Lymphocytes (%) (Auto) 20 % (24-48) Monocytes (%) (Auto) 8 % (0-9) Eosinophils (%) (Auto) 0 % (0-3) Basophils (%) (Auto) 0 % (0-3) Neutrophils # (Auto) 7.5 x10^3uL (1.8-7.7) Lymphocytes # (Auto) 2.1 x10^3/uL (1.0-4.8) Monocytes # (Auto) 0.8 x10^3/uL (0.0-1.1) Eosinophils # (Auto) 0.0 x10^3/uL (0.0-0.7) Basophils # (Auto) 0.0 x10^3/uL (0.0-0.2) Sodium Level 140 mmol/L (136-145) Potassium Level 3.0 mmol/L (3.5-5.1) Chloride Level 107 mmol/L (98-107) Carbon Dioxide Level 26 mmol/L (21-32) Anion Gap 7 (6-14) Blood Urea Nitrogen 11 mg/dL (7-20) Creatinine 0.6 mg/dL (0.6-1.0) Estimated GFR (Cockcroft-Gault) 98.8 BUN/Creatinine Ratio 18 (6-20) Glucose Level 156 mg/dL (70-99) Calcium Level 6.6 mg/dL (8.5-10.1) Magnesium Level 1.9 mg/dL (1.8-2.4) Total Bilirubin 0.4 mg/dL (0.2-1.0) Aspartate Amino Transf (AST/SGOT) 24 U/L (15-37) Alanine Aminotransferase (ALT/SGPT) 24 U/L (14-59) Alkaline Phosphatase 43 U/L (46-116) Total Protein 5.3 g/dL (6.4-8.2) Albumin 1.3 g/dL (3.4-5.0) Albumin/Globulin Ratio 0.3 (1.0-1.7) Vancomycin Level Trough 6.4 mcg/mL (10.0-20.0) Vancomycin Last Dose Date 07/31/16 Vancomycin Last Dose Time 1999 Micro BLD CULT RESULT 1 Preliminary Comment Gram positive cocci in chains Recovered from anaerobic bottle only. Objective Assessment GPC in chains bacteremia, POA Fever Leukocytosis- improved Pulmonary nodules Recent dental extractions - PCN V 6/4 for 10 days Severe Protein malnutrition Plan Plan of Care Continue Vanc and Zosyn vanc trough 6.4 ANCA pending Await report CT head/facial bones ECHO no vegetations May need bronch F/u labs and cults Attending Co-Sign The patient was seen and interviewed as well as examined at the bedside. The chart was reviewed. The case was discussed. Agree with the plan of care. pt most likely has rt sided endocarditis, bc +, will await and adjust meds, will need MARYAM PRICE OH APRN Aug 01, 2016 09:32 TALYA PEREA MD Aug 01, 2016 15:31
[2016-08-01] MEDS: VANCOMYCIN 1.5 GM in IV NORMAL SALINE 500ML BAG 500 ML IV SCH ×3 (09:41→22:51)
--- NOTE | 2016-08-01 10:02 | RAD ---
EXAM: 1. CT head without contrast. 2. CT facial bones without contrast HISTORY: Headache after dental extraction. TECHNIQUE: Computed tomography of the head and facial bones was performed without intravenous contrast. COMPARISON: None. FINDINGS: There are limitations from motion artifact on some series. The examination remains diagnostic for the following. There is no intracranial hemorrhage. There are chronic appearing infarcts bilaterally in the thalami and right oh radiata. There is mild chronic small vessel ischemic white matter change elsewhere. The ventricles are normal in size and position for patient age. The temporal bones are unremarkable. The calvarium reveals no suspicious lesions. There are atherosclerotic calcifications of the internal carotid and vertebral arteries. No facial fractures are identified. There is a small mucous retention cyst in the right maxillary sinus. There is mild mucosal thickening in the sphenoid sinus. The orbits are unremarkable. Changes of recent dental extraction are seen along the left maxillary alveolar ridge. There is no surrounding fluid collection. IMPRESSION: 1. No acute intracranial findings. 2. 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 3. No evidence of fluid collection status post dental extraction. *One or more of the following individualized dose reduction techniques were utilized for this examination: 1. Automated exposure control. 2. Adjustment of the mA and/or kV according to patient size. 3. Use of iterative reconstruction technique.
[2016-08-01] MEDS ORDERED: POTASSIUM CHLORIDE 20 MEQ TABLET.ER. PO ONE (11:45)
--- NOTE | 2016-08-01 12:59 | PDOC ---
PROGRESS NOTES Subjective Subjective feeling better today Objective Objective Vital Signs Date Time Temp Pulse Resp B/P (MAP) Pulse Ox O2 Delivery O2 Flow Rate FiO2 08/01/16 12:10 99.4 68 16 155/70 (98) 98 Nasal Cannula 3.0 99.4 Intake and Output 08/01/16 07:00 Intake Total 2155 ml Output Total 1 ml Balance 2154 ml Intake Oral 450 ml IV Total 1705 ml Urine/Stool Mix 1 ml # Voids 12 # Bowel Movements 7 Physical Exam Abdomen: Normal bowel sounds, Soft Heart: Normal S1, Normal S2, Other (2/6 MICHELLE - LUSB) Extremities: No edema, Normal pulses General: Alert, Oriented X3, Cooperative HEENT: Atraumatic, 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 Septic pulmonary emboli, most likely source is dental infection. 2. Hypertension. 3. Diabetes mellitus type 2 oral med controlled 4. Hypokalemia. 5. Hyponatremia. 6. Osteoarthritis. 7. Osteoporosis. 8. Non-morbid obesity. 9. Aortic regurg 10. Severe protein-calorie malnutrition. 11. Gastroesophageal reflux disease. 12. Mixed hyperlipidemia. 13. Mild AR, TR ECHO 14. pulmonary HTN 15. anemia from acute illness 16. CKD II 17. multiple dental caries, teeth fractured below gum line PLAN:ECHO no vegetations septic emboli [facility] 3.0 replace today 07/31 CT maxillofacial and head pending 07/31 carotid doppler pending ADmit WBC 21.3 07/31 13.3 10 today d/w ID, may need possible bronch Admit T99.7 07/[address] chest and abd possible septic emboli in lungs Problems: Plan Plan of Care Problems Medical Problems: (1) Sepsis Status: Acute (2) Septic pulmonary embolism Status: Acute (3) Weakness Status: Acute Comment Review of Relevant I have reviewed the following items nusrat (where applicable) has been applied. Labs Laboratory Tests Test 08/01/16 07:45 White Blood Count 10.5 x10^3/uL (4.0-11.0) Red Blood Count 2.71 x10^6/uL (3.50-5.40) Hemoglobin 7.7 g/dL (12.0-15.5) Hematocrit 23.5 % (36.0-47.0) Mean Corpuscular Volume 87 fL (79-100) Mean Corpuscular Hemoglobin 29 pg (25-35) Mean Corpuscular Hemoglobin Concent 33 g/dL (31-37) Red Cell Distribution Width 14.7 % (11.5-14.5) Platelet Count 356 x10^3/uL (140-400) Neutrophils (%) (Auto) 71 % (31-73) Lymphocytes (%) (Auto) 20 % (24-48) Monocytes (%) (Auto) 8 % (0-9) Eosinophils (%) (Auto) 0 % (0-3) Basophils (%) (Auto) 0 % (0-3) Neutrophils # (Auto) 7.5 x10^3uL (1.8-7.7) Lymphocytes # (Auto) 2.1 x10^3/uL (1.0-4.8) Monocytes # (Auto) 0.8 x10^3/uL (0.0-1.1) Eosinophils # (Auto) 0.0 x10^3/uL (0.0-0.7) Basophils # (Auto) 0.0 x10^3/uL (0.0-0.2) Sodium Level 140 mmol/L (136-145) Potassium Level 3.0 mmol/L (3.5-5.1) Chloride Level 107 mmol/L (98-107) Carbon Dioxide Level 26 mmol/L (21-32) Anion Gap 7 (6-14) Blood Urea Nitrogen 11 mg/dL (7-20) Creatinine 0.6 mg/dL (0.6-1.0) Estimated GFR (Cockcroft-Gault) 98.8 BUN/Creatinine Ratio 18 (6-20) Glucose Level 156 mg/dL (70-99) Calcium Level 6.6 mg/dL (8.5-10.1) Magnesium Level 1.9 mg/dL (1.8-2.4) Total Bilirubin 0.4 mg/dL (0.2-1.0) Aspartate Amino Transf (AST/SGOT) 24 U/L (15-37) Alanine Aminotransferase (ALT/SGPT) 24 U/L (14-59) Alkaline Phosphatase 43 U/L (46-116) Total Protein 5.3 g/dL (6.4-8.2) Albumin 1.3 g/dL (3.4-5.0) Albumin/Globulin Ratio 0.3 (1.0-1.7) Vancomycin Level Trough 6.4 mcg/mL (10.0-20.0) Vancomycin Last Dose Date 07/31/16 Vancomycin Last Dose Time 1999 Microbiology 07/30/16 Blood Culture - Preliminary, Resulted NO GROWTH AFTER 1 DAY Medications Current Medications Benzocaine (Hurricaine One) 3 spray 1X ONCE MM ; Start 08/03/16 at 11:00; Stop 08/03/16 at 11:01 Lidocaine HCl (Viscous Lidocaine) 15 ml 1X ONCE MM ; Start 08/03/16 at 11:00; Stop 08/03/16 at 11:01 Lidocaine HCl (Xylocaine 2% Topical 5gm Tube) 1 js 1X ONCE TP ; Start at 11:00; Stop 08/03/16 at 11:01 Potassium Chloride (Klor-Con) 40 meq 1X ONCE PO Last administered on 12:35; Start 08/01/16 at 11:45; Stop 08/01/16 at 11:46; Status DC Ringer's Solution 1,000 ml @ 50 mls/hr Q20H IV ; Start 07/31/16 at 18:29; Stop 08/01/16 at 06:28; Status DC Simvastatin (Zocor) 20 mg HS PO Last administered on 07/31/16t 20:16; Start at 21:00 Vancomycin HCl 1 each 1X ONCE MC ; Start 08/01/16 at 07:30; Stop 08/01/16 at 07 :31; Status DC Vancomycin HCl 1 each 1X ONCE MC ; Start 08/02/16 at 08:30; Stop 08/02/16 at 08 :31 Vancomycin HCl 1.5 gm/Sodium Chloride 500 ml @ 250 mls/hr Q8H IV Last administered on 08/01/16 09:41; Start 08/01/16 at 09:00 Vitals/I & O Vital Sign - Last 24 Hours 07/31/16 07/31/16 07/31/16 6/16/17 13:00 14:00 15:00 16:00 Temp 99.0 99.0 Pulse 72 92 68 63 Resp 18 16 20 14 B/P (MAP) 154/66 (95) 164/69 (100) 143/62 (89) 153/62 (92) Pulse Ox 95 96 96 97 O2 Delivery Nasal Cannula Nasal Cannula Nasal Cannula Nasal Cannula O2 Flow Rate 4.0 4.0 4.0 4.0 07/31/16 07/31/16 07/31/16 07/31/16 16:00 17:00 18:00 19:00 Temp 100.2 100.2 Pulse 64 71 71 Resp 20 20 20 B/P (MAP) 138/51 (80) 147/59 (88) 132/59 (83) Pulse Ox 97 96 97 O2 Delivery Nasal Cannula Nasal Cannula Nasal Cannula Nasal Cannula O2 Flow Rate 4.0 4.0 4.0 3.0 07/31/16 07/31/16 07/31/16 07/31/16 19:41 20:00 21:00 22:00 Temp 98.6 98.6 Pulse 71 66 71 Resp 20 20 20 B/P (MAP) 132/59 (83) 140/89 (106) 159/75 (103) Pulse Ox 97 98 98 O2 Delivery Nasal Cannula Nasal Cannula Nasal Cannula Nasal Cannula O2 Flow Rate 3.0 3.0 3.0 3.0 07/31/16 07/31/16 07/31/16 08/01/16 23:00 23:51 23:55 00:49 Temp 100.0 100.0 Pulse 66 66 68 Resp 20 20 18 B/P (MAP) 172/68 (102) 172/68 (102) 149/73 (98) Pulse Ox 97 97 98 O2 Delivery Nasal Cannula Nasal Cannula Nasal Cannula Nasal Cannula O2 Flow Rate 3.0 3.0 3.0 3.0 08/01/16 08/01/16 08/01/16 08/01/16 02:04 02:15 02:56 03:54 Temp 101.5 98.9 101.5 98.9 Pulse 73 63 69 Resp 18 20 20 B/P (MAP) 174/78 (110) 122/54 (76) 115/65 (82) Pulse Ox 98 98 99 O2 Delivery Nasal Cannula Nasal Cannula Nasal Cannula O2 Flow Rate 3.0 3.0 3.0 08/01/16 08/01/16 08/01/16 08/01/16 03:56 05:13 06:07 07:00 Temp 99.0 99.0 Pulse 55 48 60 Resp 20 20 18 B/P (MAP) 127/59 (81) 142/67 (92) 179/77 (111) Pulse Ox 99 99 100 O2 Delivery Nasal Cannula Nasal Cannula Nasal Cannula Nasal Cannula O2 Flow Rate 3.0 3.0 3.0 3.0 08/01/16 08/01/16 08/01/16 08/01/16 08:00 08:07 09:11 12:10 Temp 99.4 99.4 Pulse 68 71 68 Resp 16 B/P (MAP) 142/61 (88) 152/69 (96) 155/70 (98) Pulse Ox 100 99 98 O2 Delivery Nasal Cannula Nasal Cannula Nasal Cannula Nasal Cannula O2 Flow Rate 3.0 3.0 3.0 3.0 Intake and Output 07/31/16 07/31/16 08/01/16 15:00 23:00 07:00 Intake Total 888 ml 1267 ml Output Total 1 ml Balance 888 ml 1267 ml -1 ml CHADD SEALS MD Aug 01, 2016 12:59
[2016-08-01] MEDS: SIMVASTATIN 20 MG TABLET PO SCH (20:11)
[2016-08-02] MEDS: ACETAMINOPHEN 325 MG TABLET. PO PRN ×2 (00:31→16:41)
[2016-08-02 00:57] LABS: BILIRUBIN,URINE NEGATIVE (NEG); GLUCOSE,URINE NEGATIVE (NEG); NITRITE,URINE NEGATIVE (NEG); PH,URINE 7.5; PROTEIN,URINE NEGATIVE (NEG-TRACE); UROBILINOGEN,URINE 0.2 mg/dL (0.2 mg/dL)
[2016-08-02 01:06] LABS: RBC,URINE 0 /HPF (0-2)
[2016-08-02 01:07] LABS: BACTERIA,URINE 0 /HPF (0-FEW); SQUAMOUS EPITHELIAL CELL,UR FEW /LPF
[2016-08-02] MEDS: PIPERACILLIN/TAZOBACTAM 4.5 GM in IV NORMAL SALINE 100ML 100 ML IV SCH ×4 (05:59→20:37)
[2016-08-02 06:39] LABS: ALBUMIN 1.5 g/dL (3.4-5.0); ALBUMIN/GLOBULIN RATIO 0.3 (1.0-1.7); CALCIUM 7.9 mg/dL (8.5-10.1); CREATININE 0.6 mg/dL (0.6-1.0); GFR 98.8; POTASSIUM 3.8 mmol/L (3.5-5.1); TOTAL BILIRUBIN 0.3 mg/dL (0.2-1.0); TOTAL PROTEIN 6.2 g/dL (6.4-8.2)
[2016-08-02 06:45] LABS: BASO % 0 % (0-3); EOS % 1 % (0-3); HEMATOCRIT 24.5 % (36.0-47.0); HEMOGLOBIN 8.1 g/dL (12.0-15.5); LYMPH # 2.1 x10^3/uL (1.0-4.8); LYMPH % 25 % (24-48); MEAN CORPUSCULAR HEMOGLOBIN 28 pg (25-35); MEAN CORPUSCULAR HGB CONC 33 g/dL (31-37); MEAN CORPUSCULAR VOLUME 85 fL (79-100); MONO % 8 % (0-9); NEUT % 66 % (31-73); PLATELET COUNT 366 x10^3/uL (140-400); RED BLOOD COUNT 2.89 x10^6/uL (3.50-5.40); RED CELL DISTRIBUTION WIDTH 14.7 % (11.5-14.5); WHITE BLOOD COUNT 8.6 x10^3/uL (4.0-11.0)
[2016-08-02] MEDS: PANTOPRAZOLE 40 MG TABLET.DR. PO SCH (07:31)
[2016-08-02 08:00] VITALS: BP 162/72
[2016-08-02] MEDS: VANCOMYCIN 1.5 GM in IV NORMAL SALINE 500ML BAG 500 ML IV SCH ×3 (10:13→23:40)
[2016-08-02] MEDS: CHOLECALCIFEROL (VITAMIN D3) 1,000 UNIT TABLET PO SCH (10:13)
--- NOTE | 2016-08-02 10:30 | PDOC ---
PULMONARY PROGRESS NOTES Subjective on 02, sob is better. no pain, has occ cough, is on home bipap at night, used bipap last night, mask is too small Vitals Vital Signs Date Time Temp Pulse Resp B/P (MAP) Pulse Ox O2 Delivery O2 Flow Rate FiO2 08/02/16 08:00 98.0 86 22 162/72 (102) 97 98.0 08/02/16 03:23 Nasal Cannula 08/01/16 20:00 3.0 Comments ros as mentioned as above other sys otherwise neg ROS: No Nausea, No Chest Pain, No Abdominal Pain, No Increase Cough General: Alert, Oriented X4 HEENT: Other (nc at perrl, shallow oropharynx, nose clear, neck no lap, thyromegaly) Lungs: Crackles Cardiovascular: S1, S2 Abdomen: Soft, Non-tender, Other (no mass) Neuro Exam: Alert, Oriented Extremities: Other (edema) Skin: Warm Labs Laboratory Tests Test 08/01/16 07:45 08/01/16 15:15 08/01/16 20:46 08/02/16 00:45 White Blood Count 10.5 x10^3/uL (4.0-11.0) Red Blood Count 2.71 x10^6/uL (3.50-5.40) Hemoglobin 7.7 g/dL (12.0-15.5) Hematocrit 23.5 % (36.0-47.0) Mean Corpuscular Volume 87 fL (79-100) Mean Corpuscular Hemoglobin 29 pg (25-35) Mean Corpuscular Hemoglobin Concent 33 g/dL (31-37) Red Cell Distribution Width 14.7 % (11.5-14.5) Platelet Count 356 x10^3/uL (140-400) Neutrophils (%) (Auto) 71 % (31-73) Lymphocytes (%) (Auto) 20 % (24-48) Monocytes (%) (Auto) 8 % (0-9) Eosinophils (%) (Auto) 0 % (0-3) Basophils (%) (Auto) 0 % (0-3) Neutrophils # (Auto) 7.5 x10^3uL (1.8-7.7) Lymphocytes # (Auto) 2.1 x10^3/uL (1.0-4.8) Monocytes # (Auto) 0.8 x10^3/uL (0.0-1.1) Eosinophils # (Auto) 0.0 x10^3/uL (0.0-0.7) Basophils # (Auto) 0.0 x10^3/uL (0.0-0.2) Sodium Level 140 mmol/L (136-145) Potassium Level 3.0 mmol/L (3.5-5.1) 3.8 mmol/L (3.5-5.1) Chloride Level 107 mmol/L (98-107) Carbon Dioxide Level 26 mmol/L (21-32) Anion Gap 7 (6-14) Blood Urea Nitrogen 11 mg/dL (7-20) Creatinine 0.6 mg/dL (0.6-1.0) Estimated GFR (Cockcroft-Gault) 98.8 BUN/Creatinine Ratio 18 (6-20) Glucose Level 156 mg/dL (70-99) Calcium Level 6.6 mg/dL (8.5-10.1) Magnesium Level 1.9 mg/dL (1.8-2.4) Total Bilirubin 0.4 mg/dL (0.2-1.0) Aspartate Amino Transf (AST/SGOT) 24 U/L (15-37) Alanine Aminotransferase (ALT/SGPT) 24 U/L (14-59) Alkaline Phosphatase 43 U/L (46-116) Total Protein 5.3 g/dL (6.4-8.2) Albumin 1.3 g/dL (3.4-5.0) Albumin/Globulin Ratio 0.3 (1.0-1.7) Vancomycin Level Trough 6.4 mcg/mL (10.0-20.0) Vancomycin Last Dose Date 07/31/16 Vancomycin Last Dose Time 1999 Glucose (Fingerstick) 190 mg/dL (70-99) Urine Collection Type Unknown Urine Color Yellow Urine Clarity Clear Urine pH 7.5 Urine Specific [place] 1.015 Urine Protein Negative mg/dL (NEG-TRACE) Urine Glucose (UA) Negative mg/dL (NEG) Urine Ketones (Stick) Negative mg/dL (NEG) Urine Blood Negative (NEG) Urine Nitrite Negative (NEG) Urine Bilirubin Negative (NEG) Urine Urobilinogen Dipstick 0.2 mg/dL (0.2 mg/dL) Urine Leukocyte Esterase Trace (NEG) Urine RBC 0 /HPF (0-2) Urine WBC 1-4 /HPF (0-4) Urine Squamous Epithelial Cells Few /LPF Urine Bacteria 0 /HPF (0-FEW) Test 08/02/16 06:18 08/02/16 08:55 White Blood Count 8.6 x10^3/uL (4.0-11.0) Red Blood Count 2.89 x10^6/uL (3.50-5.40) Hemoglobin 8.1 g/dL (12.0-15.5) Hematocrit 24.5 % (36.0-47.0) Mean Corpuscular Volume 85 fL (79-100) Mean Corpuscular Hemoglobin 28 pg (25-35) Mean Corpuscular Hemoglobin Concent 33 g/dL (31-37) Red Cell Distribution Width 14.7 % (11.5-14.5) Platelet Count 366 x10^3/uL (140-400) Neutrophils (%) (Auto) 66 % (31-73) Lymphocytes (%) (Auto) 25 % (24-48) Monocytes (%) (Auto) 8 % (0-9) Eosinophils (%) (Auto) 1 % (0-3) Basophils (%) (Auto) 0 % (0-3) Neutrophils # (Auto) 5.7 x10^3uL (1.8-7.7) Lymphocytes # (Auto) 2.1 x10^3/uL (1.0-4.8) Monocytes # (Auto) 0.7 x10^3/uL (0.0-1.1) Eosinophils # (Auto) 0.1 x10^3/uL (0.0-0.7) Basophils # (Auto) 0.0 x10^3/uL (0.0-0.2) Sodium Level 138 mmol/L (136-145) Potassium Level 3.8 mmol/L (3.5-5.1) Chloride Level 105 mmol/L (98-107) Carbon Dioxide Level 28 mmol/L (21-32) Anion Gap 5 (6-14) Blood Urea Nitrogen 9 mg/dL (7-20) Creatinine 0.6 mg/dL (0.6-1.0) Estimated GFR (Cockcroft-Gault) 98.8 BUN/Creatinine Ratio 15 (6-20) Glucose Level 155 mg/dL (70-99) Calcium Level 7.9 mg/dL (8.5-10.1) Total Bilirubin 0.3 mg/dL (0.2-1.0) Aspartate Amino Transf (AST/SGOT) 25 U/L (15-37) Alanine Aminotransferase (ALT/SGPT) 33 U/L (14-59) Alkaline Phosphatase 50 U/L (46-116) Total Protein 6.2 g/dL (6.4-8.2) Albumin 1.5 g/dL (3.4-5.0) Albumin/Globulin Ratio 0.3 (1.0-1.7) Vancomycin Level Trough 18.1 mcg/mL (10.0-20.0) Vancomycin Last Dose Date 08/02/16 Vancomycin Last Dose Time 0100 Laboratory Tests Test 08/01/16 15:15 08/01/16 20:46 08/02/16 00:45 08/02/16 06:18 Potassium Level 3.8 mmol/L (3.5-5.1) 3.8 mmol/L (3.5-5.1) Glucose (Fingerstick) 190 mg/dL (70-99) Urine Collection Type Unknown Urine Color Yellow Urine Clarity Clear Urine pH 7.5 Urine Specific [place] 1.015 Urine Protein Negative mg/dL (NEG-TRACE) Urine Glucose (UA) Negative mg/dL (NEG) Urine Ketones (Stick) Negative mg/dL (NEG) Urine Blood Negative (NEG) Urine Nitrite Negative (NEG) Urine Bilirubin Negative (NEG) Urine Urobilinogen Dipstick 0.2 mg/dL (0.2 mg/dL) Urine Leukocyte Esterase Trace (NEG) Urine RBC 0 /HPF (0-2) Urine WBC 1-4 /HPF (0-4) Urine Squamous Epithelial Cells Few /LPF Urine Bacteria 0 /HPF (0-FEW) White Blood Count 8.6 x10^3/uL (4.0-11.0) Red Blood Count 2.89 x10^6/uL (3.50-5.40) Hemoglobin 8.1 g/dL (12.0-15.5) Hematocrit 24.5 % (36.0-47.0) Mean Corpuscular Volume 85 fL (79-100) Mean Corpuscular Hemoglobin 28 pg (25-35) Mean Corpuscular Hemoglobin Concent 33 g/dL (31-37) Red Cell Distribution Width 14.7 % (11.5-14.5) Platelet Count 366 x10^3/uL (140-400) Neutrophils (%) (Auto) 66 % (31-73) Lymphocytes (%) (Auto) 25 % (24-48) Monocytes (%) (Auto) 8 % (0-9) Eosinophils (%) (Auto) 1 % (0-3) Basophils (%) (Auto) 0 % (0-3) Neutrophils # (Auto) 5.7 x10^3uL (1.8-7.7) Lymphocytes # (Auto) 2.1 x10^3/uL (1.0-4.8) Monocytes # (Auto) 0.7 x10^3/uL (0.0-1.1) Eosinophils # (Auto) 0.1 x10^3/uL (0.0-0.7) Basophils # (Auto) 0.0 x10^3/uL (0.0-0.2) Sodium Level 138 mmol/L (136-145) Chloride Level 105 mmol/L (98-107) Carbon Dioxide Level 28 mmol/L (21-32) Anion Gap 5 (6-14) Blood Urea Nitrogen 9 mg/dL (7-20) Creatinine 0.6 mg/dL (0.6-1.0) Estimated GFR (Cockcroft-Gault) 98.8 BUN/Creatinine Ratio 15 (6-20) Glucose Level 155 mg/dL (70-99) Calcium Level 7.9 mg/dL (8.5-10.1) Total Bilirubin 0.3 mg/dL (0.2-1.0) Aspartate Amino Transf (AST/SGOT) 25 U/L (15-37) Alanine Aminotransferase (ALT/SGPT) 33 U/L (14-59) Alkaline Phosphatase 50 U/L (46-116) Total Protein 6.2 g/dL (6.4-8.2) Albumin 1.5 g/dL (3.4-5.0) Albumin/Globulin Ratio 0.3 (1.0-1.7) Test 08/02/16 08:55 Vancomycin Level Trough 18.1 mcg/mL (10.0-20.0) Vancomycin Last Dose Date 08/02/16 Vancomycin Last Dose Time 0100 Medications Active Scripts Medications Dose Route/Sig Max Daily Dose Days Date Category Metronidazole 70 Gm Gel.w.appl 70 Gm VG 07/31/16 Reported Vitamin D3 (Cholecalciferol (Vitamin D3)) 1,000 Unit Tablet 1,000 Unit PO 07/31/16 Reported Tricor (Fenofibrate Nanocrystallized) 145 Mg Tablet 145 Mg PO DAILY 07/31/16 Reported Trandolapril 4 Mg Tablet 4 Mg PO 07/31/16 Reported Simvastatin 20 Mg Tablet 20 Mg PO HS 07/31/16 Reported Protonix (Pantoprazole Sodium) 40 Mg Tablet.dr 40 Mg PO DAILY 07/31/16 Reported Penicillin V Potassium 500 Mg Tablet 1 Tab PO QID 07/19/16 Rx Naprosyn (Naproxen) 500 Mg Tablet 1 Tab PO BID 07/19/16 Rx Hydrocodone-Apap 5-325 (Hydrocodone Bit/Acetaminophen) 1 Each Tablet 1-2 Tab PO PRN Q6HRS PRN 5 07/19/[address] reviewed, Multiple bilateral pulmonary nodules, some of which are irregular and some which are cavitary. Impression . 1. Bilateral pulmonary nodules, most of them are smooth, few of them are slightly irregular and few of them with cavitation. This is a patient with a dental extraction done and continued to have pain and had some nausea and vomiting, in addition had a white cell count 21,000. I think most likely etiology of these nodules appears to be infectious and as such cannot exclude the possibility of septic emboli and will need a transesophageal echo to rule out any endocarditis. The other likely possibility would include malignancy, although she lacks symptoms of any malignancy. Pulmonary vasculitis would also be in the differential diagnosis. Her sed rate is markedly high. 2. Minimal history of tobacco use. 3. Recent dental extraction leading to pain and leukocytosis despite on penicillin V. 4. Underlying obesity. 5. Underlying diabetes. 6. Severe protein-calorie malnutrition with albumin of 1.6. 7. [place] Plan . RECOMMENDATIONS: 1. Would continue present broad-spectrum antibiotics. 2. Follow blood cultures. 3. manda on wednesday 4. Sed rate is high. fu c-ANCA and p-ANCA to rule out any Verdin's granulomatosis/vasculitis. fu complement levels. 5. If the transesophageal echo does not reveal any right-sided vegetations, then will consider CT-guided biopsy of the largest lung nodule. This can be done later or as an outpatient. 6. Follow ID recommendations. 7. bipap during sleep, ask rt for a larger mask. discussed w rn, rt, pt JAVED ANDREWS MD Aug 02, 2016 10:30
--- NOTE | 2016-08-02 11:07 | PDOC ---
Infectious Disease Note Subjective Subjective Hard stools Daniel bloating, cramps N/V Eating 50% meals, on PPN No fever last 24 hours ROS ROS GEN: Denies chills, sweats CV: Denies chest pain RESP: Denies shortness of air, cough Vital Sign Vital Signs Vital Signs Date Time Temp Pulse Resp B/P (MAP) Pulse Ox O2 Delivery O2 Flow Rate FiO2 08/02/16 08:00 98.0 86 22 162/72 (102) 97 98.0 08/02/16 03:23 Nasal Cannula 08/01/16 20:00 3.0 Physical Exam PHYSICAL EXAM GENERAL: Propped up in bed, NAD HEENT: OC/OP clear LUNGS: Clear anteriorly, nonlabored HEART: S1S2, no murmur appreciated ABD: Soft, NT, BS active EXT: No edema, no cyanosis 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 clean Labs Lab Laboratory Tests Test 08/01/16 15:15 08/01/16 20:46 08/02/16 00:45 08/02/16 06:18 Potassium Level 3.8 mmol/L (3.5-5.1) 3.8 mmol/L (3.5-5.1) Glucose (Fingerstick) 190 mg/dL (70-99) Urine Collection Type Unknown Urine Color Yellow Urine Clarity Clear Urine pH 7.5 Urine Specific [place] 1.015 Urine Protein Negative mg/dL (NEG-TRACE) Urine Glucose (UA) Negative mg/dL (NEG) Urine Ketones (Stick) Negative mg/dL (NEG) Urine Blood Negative (NEG) Urine Nitrite Negative (NEG) Urine Bilirubin Negative (NEG) Urine Urobilinogen Dipstick 0.2 mg/dL (0.2 mg/dL) Urine Leukocyte Esterase Trace (NEG) Urine RBC 0 /HPF (0-2) Urine WBC 1-4 /HPF (0-4) Urine Squamous Epithelial Cells Few /LPF Urine Bacteria 0 /HPF (0-FEW) White Blood Count 8.6 x10^3/uL (4.0-11.0) Red Blood Count 2.89 x10^6/uL (3.50-5.40) Hemoglobin 8.1 g/dL (12.0-15.5) Hematocrit 24.5 % (36.0-47.0) Mean Corpuscular Volume 85 fL (79-100) Mean Corpuscular Hemoglobin 28 pg (25-35) Mean Corpuscular Hemoglobin Concent 33 g/dL (31-37) Red Cell Distribution Width 14.7 % (11.5-14.5) Platelet Count 366 x10^3/uL (140-400) Neutrophils (%) (Auto) 66 % (31-73) Lymphocytes (%) (Auto) 25 % (24-48) Monocytes (%) (Auto) 8 % (0-9) Eosinophils (%) (Auto) 1 % (0-3) Basophils (%) (Auto) 0 % (0-3) Neutrophils # (Auto) 5.7 x10^3uL (1.8-7.7) Lymphocytes # (Auto) 2.1 x10^3/uL (1.0-4.8) Monocytes # (Auto) 0.7 x10^3/uL (0.0-1.1) Eosinophils # (Auto) 0.1 x10^3/uL (0.0-0.7) Basophils # (Auto) 0.0 x10^3/uL (0.0-0.2) Sodium Level 138 mmol/L (136-145) Chloride Level 105 mmol/L (98-107) Carbon Dioxide Level 28 mmol/L (21-32) Anion Gap 5 (6-14) Blood Urea Nitrogen 9 mg/dL (7-20) Creatinine 0.6 mg/dL (0.6-1.0) Estimated GFR (Cockcroft-Gault) 98.8 BUN/Creatinine Ratio 15 (6-20) Glucose Level 155 mg/dL (70-99) Calcium Level 7.9 mg/dL (8.5-10.1) Total Bilirubin 0.3 mg/dL (0.2-1.0) Aspartate Amino Transf (AST/SGOT) 25 U/L (15-37) Alanine Aminotransferase (ALT/SGPT) 33 U/L (14-59) Alkaline Phosphatase 50 U/L (46-116) Total Protein 6.2 g/dL (6.4-8.2) Albumin 1.5 g/dL (3.4-5.0) Albumin/Globulin Ratio 0.3 (1.0-1.7) Test 08/02/16 08:55 Vancomycin Level Trough 18.1 mcg/mL (10.0-20.0) Vancomycin Last Dose Date 08/02/16 Vancomycin Last Dose Time 0100 CT HEAD AND MAXILLOFACIAL WO IMPRESSION: 1. No acute intracranial findings. 2. 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 3. No evidence of fluid collection status post dental extraction. Micro BLOOD CULTURE Final GRAM POSITIVE COCCI IN CHAINS, 2SETS DRAWN, 2 OF 3 POSITIVE Objective Assessment GPC in chains bacteremia, POA (now 3 of 4 bottles). suspecting endocarditis Fever Leukocytosis- improved Pulmonary nodules Recent dental extractions - PCN V 07/19 for 10 days Severe Protein malnutrition Plan Plan of Care Continue Vanc and Zosyn vanc trough 18.1 ANCA pending ECHO no vegetations. will need MARYAM May need bronch Await GPC ID Attending Co-Sign The patient was seen and interviewed as well as examined at the bedside. The chart was reviewed. The case was discussed. Agree with the plan of care. PRICE OH APRN Aug 02, 2016 11:07 TALYA PEREA MD Aug 02, 2016 14:03
[2016-08-02] MEDS ORDERED: ALTEPLASE 2 MG VIAL INT CAT ONE (11:15)
[2016-08-02] MEDS: VANCOMYCIN PER PHARMACY MC PRN (11:18)
--- NOTE | 2016-08-02 11:27 | PDOC ---
PROGRESS NOTES Subjective Subjective feels better today Objective Objective Vital Signs Date Time Temp Pulse Resp B/P (MAP) Pulse Ox O2 Delivery O2 Flow Rate FiO2 08/02/16 08:00 98.0 86 22 162/72 (102) 97 98.0 08/02/16 03:23 Nasal Cannula 08/01/16 20:00 3.0 Intake and Output 08/02/16 07:00 Intake Total 1320 ml Output Total 900 ml Balance 420 ml Intake Oral 1320 ml Output Urine Total 900 ml # Voids 5 # Bowel Movements 1 Physical Exam Abdomen: Normal bowel sounds, Soft Heart: Normal S1, Normal S2, Other (2/ MICHELLE - LUSB) Extremities: No edema, Normal pulses General: Alert, Oriented X3, Cooperative HEENT: Atraumatic, 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 Septic pulmonary emboli, most likely source is dental infection. 2. Hypertension. 3. Diabetes mellitus type 2 oral med controlled 4. Hypokalemia. 5. Hyponatremia. 6. Osteoarthritis. 7. Osteoporosis. 8. Non-morbid obesity. 9. Aortic regurg 10. Severe protein-calorie malnutrition. 11. Gastroesophageal reflux disease. 12. Mixed hyperlipidemia. 13. Mild AR, TR ECHO 14. pulmonary HTN 15. anemia from acute illness 16. CKD II 17. multiple dental caries, teeth fractured below gum line PLAN:ECHO no vegetations septic emboli ID consult appreciated Zosyn/[facility] ICU trnasfered out pot 3.0 replaced today 4.3 07/31 CT maxillofacial and head -ve 07/31 carotid doppler neg ADmit WBC 21.3 07/31 13.3 ,10 today d/w ID, may need possible bronch MARYAM next week, repeat blood c/s positive ct chest and abd possible septic emboli in lungs Problems: Plan Plan of Care Problems Medical Problems: (1) Sepsis Status: Acute (2) Septic pulmonary embolism Status: Acute (3) Weakness Status: Acute Comment Review of Relevant I have reviewed the following items nusrat (where applicable) has been applied. Labs Laboratory Tests Test 6/17/17 15:15 08/01/16 20:46 08/02/16 00:45 08/02/16 06:18 Potassium Level 3.8 mmol/L (3.5-5.1) 3.8 mmol/L (3.5-5.1) Glucose (Fingerstick) 190 mg/dL (70-99) Urine Collection Type Unknown Urine Color Yellow Urine Clarity Clear Urine pH 7.5 Urine Specific [place] 1.015 Urine Protein Negative mg/dL (NEG-TRACE) Urine Glucose (UA) Negative mg/dL (NEG) Urine Ketones (Stick) Negative mg/dL (NEG) Urine Blood Negative (NEG) Urine Nitrite Negative (NEG) Urine Bilirubin Negative (NEG) Urine Urobilinogen Dipstick 0.2 mg/dL (0.2 mg/dL) Urine Leukocyte Esterase Trace (NEG) Urine RBC 0 /HPF (0-2) Urine WBC 1-4 /HPF (0-4) Urine Squamous Epithelial Cells Few /LPF Urine Bacteria 0 /HPF (0-FEW) White Blood Count 8.6 x10^3/uL (4.0-11.0) Red Blood Count 2.89 x10^6/uL (3.50-5.40) Hemoglobin 8.1 g/dL (12.0-15.5) Hematocrit 24.5 % (36.0-47.0) Mean Corpuscular Volume 85 fL (79-100) Mean Corpuscular Hemoglobin 28 pg (25-35) Mean Corpuscular Hemoglobin Concent 33 g/dL (31-37) Red Cell Distribution Width 14.7 % (11.5-14.5) Platelet Count 366 x10^3/uL (140-400) Neutrophils (%) (Auto) 66 % (31-73) Lymphocytes (%) (Auto) 25 % (24-48) Monocytes (%) (Auto) 8 % (0-9) Eosinophils (%) (Auto) 1 % (0-3) Basophils (%) (Auto) 0 % (0-3) Neutrophils # (Auto) 5.7 x10^3uL (1.8-7.7) Lymphocytes # (Auto) 2.1 x10^3/uL (1.0-4.8) Monocytes # (Auto) 0.7 x10^3/uL (0.0-1.1) Eosinophils # (Auto) 0.1 x10^3/uL (0.0-0.7) Basophils # (Auto) 0.0 x10^3/uL (0.0-0.2) Sodium Level 138 mmol/L (136-145) Chloride Level 105 mmol/L (98-107) Carbon Dioxide Level 28 mmol/L (21-32) Anion Gap 5 (6-14) Blood Urea Nitrogen 9 mg/dL (7-20) Creatinine 0.6 mg/dL (0.6-1.0) Estimated GFR (Cockcroft-Gault) 98.8 BUN/Creatinine Ratio 15 (6-20) Glucose Level 155 mg/dL (70-99) Calcium Level 7.9 mg/dL (8.5-10.1) Total Bilirubin 0.3 mg/dL (0.2-1.0) Aspartate Amino Transf (AST/SGOT) 25 U/L (15-37) Alanine Aminotransferase (ALT/SGPT) 33 U/L (14-59) Alkaline Phosphatase 50 U/L (46-116) Total Protein 6.2 g/dL (6.4-8.2) Albumin 1.5 g/dL (3.4-5.0) Albumin/Globulin Ratio 0.3 (1.0-1.7) Test 08/02/16 08:55 Vancomycin Level Trough 18.1 mcg/mL (10.0-20.0) Vancomycin Last Dose Date 08/02/16 Vancomycin Last Dose Time 0100 Microbiology 07/30/16 Blood Culture - Final, Complete Medications Current Medications Alteplase, Recombinant (Cathflo) 2 mg 1X ONCE INT CAT ; Start 08/02/16 at 11:15 ; Stop 08/02/16 at 11:19; Status DC Benzocaine (Hurricaine One) 3 spray 1X ONCE MM ; Start 08/03/16 at 11:00; Stop 08/03/16 at 11:01 Lidocaine HCl (Viscous Lidocaine) 15 ml 1X ONCE MM ; Start 08/03/16 at 11:00; Stop 08/03/16 at 11:01 Lidocaine HCl (Xylocaine 2% Topical 5gm Tube) 1 js 1X ONCE TP ; Start at 11:00; Stop 08/03/16 at 11:01 Potassium Chloride (Klor-Con) 40 meq 1X ONCE PO Last administered on t 12:35; Start 08/01/16 at 11:45; Stop 08/01/16 at 11:46; Status DC Vancomycin HCl 1 each 1X ONCE MC Last administered on 08/02/16t 08:50; Start 08/02/16 at 08:30; Stop 08/02/16 at 08:31; Status DC Vitals/I & O Vital Sign - Last 24 Hours 08/01/16 08/01/16 08/01/16 08/01/16 12:10 14:36 16:00 16:49 Temp 99.4 98.0 98.0 99.4 98.0 98.0 Pulse 68 88 Resp 16 22 B/P (MAP) 155/70 (98) 155/68 (97) Pulse Ox 98 98 O2 Delivery Nasal Cannula Room Air Nasal Cannula O2 Flow Rate 3.0 3.0 08/01/16 08/01/16 08/01/16 08/01/16 19:59 20:00 21:41 23:34 Temp 99.1 98.4 99.1 98.4 Pulse 63 62 Resp 18 20 B/P (MAP) 129/70 (89) 165/67 (99) Pulse Ox 99 97 O2 Delivery Room Air Nasal Cannula BiPAP/CPAP BiPAP/CPAP O2 Flow Rate 3.0 08/02/16 08/02/16 03:23 08:00 Temp 98.0 98.0 Pulse 86 Resp 22 B/P (MAP) 162/72 (102) Pulse Ox 97 O2 Delivery Nasal Cannula Intake and Output 08/01/16 08/01/16 08/02/16 15:00 23:00 07:00 Intake Total 840 ml 480 ml Output Total 400 ml 500 ml Balance 440 ml 480 ml -500 ml CHADD SEALS MD Aug 02, 2016 11:27
[2016-08-02 12:00] VITALS: BP 143/56
[2016-08-02] MEDS: AMINO AC 3%/ELECTROLYTE/GLYCER 1,000 ML IV SCH ×2 (12:16→20:43)
[2016-08-02 16:00] VITALS: BP 149/79
[2016-08-02 19:00] VITALS: BP 142/69
[2016-08-02] MEDS: SIMVASTATIN 20 MG TABLET PO SCH (20:39)
[2016-08-02] MEDS: HYDROcodone/APAP 5/325MG 1 TAB TABLET PO PRN (22:37)
[2016-08-02 23:07] VITALS: BP 167/76
[2016-08-03] VITALS (8 sets, daily range): BP systolic 134–168; BP diastolic 64–76
[2016-08-03 04:01] LABS: BASO # 0.1 x10^3/uL (0.0-0.2); BASO % 1 % (0-3); EOS % 2 % (0-3); HEMATOCRIT 24.6 % (36.0-47.0); HEMOGLOBIN 7.9 g/dL (12.0-15.5); LYMPH # 2.5 x10^3/uL (1.0-4.8); LYMPH % 32 % (24-48); MEAN CORPUSCULAR HEMOGLOBIN 28 pg (25-35); MEAN CORPUSCULAR HGB CONC 32 g/dL (31-37); MEAN CORPUSCULAR VOLUME 87 fL (79-100); MONO % 7 % (0-9); NEUT % 59 % (31-73); PLATELET COUNT 377 x10^3/uL (140-400); RED BLOOD COUNT 2.83 x10^6/uL (3.50-5.40); RED CELL DISTRIBUTION WIDTH 14.7 % (11.5-14.5); WHITE BLOOD COUNT 7.9 x10^3/uL (4.0-11.0)
[2016-08-03 05:11] LABS: ALBUMIN 1.6 g/dL (3.4-5.0); ALBUMIN/GLOBULIN RATIO 0.4 (1.0-1.7); CALCIUM 8.1 mg/dL (8.5-10.1); CREATININE 0.6 mg/dL (0.6-1.0); GFR 98.8; POTASSIUM 3.5 mmol/L (3.5-5.1); TOTAL BILIRUBIN 0.2 mg/dL (0.2-1.0); TOTAL PROTEIN 6.1 g/dL (6.4-8.2)
[2016-08-03] MEDS: PIPERACILLIN/TAZOBACTAM 4.5 GM in IV NORMAL SALINE 100ML 100 ML IV SCH (05:47)
[2016-08-03] MEDS: PANTOPRAZOLE 40 MG TABLET.DR. PO SCH (07:30)
[2016-08-03] MEDS: CHOLECALCIFEROL (VITAMIN D3) 1,000 UNIT TABLET PO SCH (09:00)
[2016-08-03] MEDS ORDERED: IV RINGERS,LACTATED 1000ML 1,000 ML IV SCH (09:40)
--- NOTE | 2016-08-03 09:54 | PDOC ---
NOYGladisJOSÉ RIDER BOAT RIGGER 08/03/16 0954: IM PROGRESS NOTES- Subjective Subjective still weak, appetite fair Objective Objective alert weak Vitals Vital Signs Date Time Temp Pulse Resp B/P (MAP) Pulse Ox O2 Delivery O2 Flow Rate FiO2 08/03/16 07:00 98.1 66 16 137/76 (96) 97 Room Air 98.1 08/02/16 23:40 3.0 Input & Output Intake and Output 08/03/16 07:00 Intake Total 1440 ml Output Total 800 ml Balance 640 ml Intake Oral 1440 ml Output Urine Total 800 ml # Bowel Movements 6 Physical Exam Physical Exam General appearance - alert, ill appearing, and in no distress Mental Status - alert, oriented to person, place, and time, affect appropriate to mood Head - normal Chest - clear to auscultation, no wheezes, rales or rhonchi, symmetric air entry Heart - S1 and S2 normal, + murmur loud Abdomen - soft, nontender, nondistended, obese BS + Neurological - no acute focal neurological deficit noted Musculoskeletal - no muscular tenderness noted Extremities - no pedal edema Skin - warm and dry Labs Laboratory Tests Test 08/01/16 15:15 08/01/16 20:46 08/02/16 00:45 08/02/16 06:18 Potassium Level 3.8 mmol/L (3.5-5.1) 3.8 mmol/L (3.5-5.1) Glucose (Fingerstick) 190 mg/dL (70-99) Urine Collection Type Unknown Urine Color Yellow Urine Clarity Clear Urine pH 7.5 Urine Specific [place] 1.015 Urine Protein Negative mg/dL (NEG-TRACE) Urine Glucose (UA) Negative mg/dL (NEG) Urine Ketones (Stick) Negative mg/dL (NEG) Urine Blood Negative (NEG) Urine Nitrite Negative (NEG) Urine Bilirubin Negative (NEG) Urine Urobilinogen Dipstick 0.2 mg/dL (0.2 mg/dL) Urine Leukocyte Esterase Trace (NEG) Urine RBC 0 /HPF (0-2) Urine WBC 1-4 /HPF (0-4) Urine Squamous Epithelial Cells Few /LPF Urine Bacteria 0 /HPF (0-FEW) White Blood Count 8.6 x10^3/uL (4.0-11.0) Red Blood Count 2.89 x10^6/uL (3.50-5.40) Hemoglobin 8.1 g/dL (12.0-15.5) Hematocrit 24.5 % (36.0-47.0) Mean Corpuscular Volume 85 fL (79-100) Mean Corpuscular Hemoglobin 28 pg (25-35) Mean Corpuscular Hemoglobin Concent 33 g/dL (31-37) Red Cell Distribution Width 14.7 % (11.5-14.5) Platelet Count 366 x10^3/uL (140-400) Neutrophils (%) (Auto) 66 % (31-73) Lymphocytes (%) (Auto) 25 % (24-48) Monocytes (%) (Auto) 8 % (0-9) Eosinophils (%) (Auto) 1 % (0-3) Basophils (%) (Auto) 0 % (0-3) Neutrophils # (Auto) 5.7 x10^3uL (1.8-7.7) Lymphocytes # (Auto) 2.1 x10^3/uL (1.0-4.8) Monocytes # (Auto) 0.7 x10^3/uL (0.0-1.1) Eosinophils # (Auto) 0.1 x10^3/uL (0.0-0.7) Basophils # (Auto) 0.0 x10^3/uL (0.0-0.2) Sodium Level 138 mmol/L (136-145) Chloride Level 105 mmol/L (98-107) Carbon Dioxide Level 28 mmol/L (21-32) Anion Gap 5 (6-14) Blood Urea Nitrogen 9 mg/dL (7-20) Creatinine 0.6 mg/dL (0.6-1.0) Estimated GFR (Cockcroft-Gault) 98.8 BUN/Creatinine Ratio 15 (6-20) Glucose Level 155 mg/dL (70-99) Calcium Level 7.9 mg/dL (8.5-10.1) Total Bilirubin 0.3 mg/dL (0.2-1.0) Aspartate Amino Transf (AST/SGOT) 25 U/L (15-37) Alanine Aminotransferase (ALT/SGPT) 33 U/L (14-59) Alkaline Phosphatase 50 U/L (46-116) Total Protein 6.2 g/dL (6.4-8.2) Albumin 1.5 g/dL (3.4-5.0) Albumin/Globulin Ratio 0.3 (1.0-1.7) Test 08/02/16 08:55 08/03/16 03:30 Vancomycin Level Trough 18.1 mcg/mL (10.0-20.0) Vancomycin Last Dose Date 08/02/16 Vancomycin Last Dose Time 0100 White Blood Count 7.9 x10^3/uL (4.0-11.0) Red Blood Count 2.83 x10^6/uL (3.50-5.40) Hemoglobin 7.9 g/dL (12.0-15.5) Hematocrit 24.6 % (36.0-47.0) Mean Corpuscular Volume 87 fL (79-100) Mean Corpuscular Hemoglobin 28 pg (25-35) Mean Corpuscular Hemoglobin Concent 32 g/dL (31-37) Red Cell Distribution Width 14.7 % (11.5-14.5) Platelet Count 377 x10^3/uL (140-400) Neutrophils (%) (Auto) 59 % (31-73) Lymphocytes (%) (Auto) 32 % (24-48) Monocytes (%) (Auto) 7 % (0-9) Eosinophils (%) (Auto) 2 % (0-3) Basophils (%) (Auto) 1 % (0-3) Neutrophils # (Auto) 4.6 x10^3uL (1.8-7.7) Lymphocytes # (Auto) 2.5 x10^3/uL (1.0-4.8) Monocytes # (Auto) 0.5 x10^3/uL (0.0-1.1) Eosinophils # (Auto) 0.2 x10^3/uL (0.0-0.7) Basophils # (Auto) 0.1 x10^3/uL (0.0-0.2) Sodium Level 139 mmol/L (136-145) Potassium Level 3.5 mmol/L (3.5-5.1) Chloride Level 106 mmol/L (98-107) Carbon Dioxide Level 28 mmol/L (21-32) Anion Gap 5 (6-14) Blood Urea Nitrogen 10 mg/dL (7-20) Creatinine 0.6 mg/dL (0.6-1.0) Estimated GFR (Cockcroft-Gault) 98.8 BUN/Creatinine Ratio 17 (6-20) Glucose Level 156 mg/dL (70-99) Calcium Level 8.1 mg/dL (8.5-10.1) Total Bilirubin 0.2 mg/dL (0.2-1.0) Aspartate Amino Transf (AST/SGOT) 26 U/L (15-37) Alanine Aminotransferase (ALT/SGPT) 37 U/L (14-59) Alkaline Phosphatase 59 U/L (46-116) Total Protein 6.1 g/dL (6.4-8.2) Albumin 1.6 g/dL (3.4-5.0) Albumin/Globulin Ratio 0.4 (1.0-1.7) Laboratory Tests Test 08/03/16 03:30 White Blood Count 7.9 x10^3/uL (4.0-11.0) Red Blood Count 2.83 x10^6/uL (3.50-5.40) Hemoglobin 7.9 g/dL (12.0-15.5) Hematocrit 24.6 % (36.0-47.0) Mean Corpuscular Volume 87 fL (79-100) Mean Corpuscular Hemoglobin 28 pg (25-35) Mean Corpuscular Hemoglobin Concent 32 g/dL (31-37) Red Cell Distribution Width 14.7 % (11.5-14.5) Platelet Count 377 x10^3/uL (140-400) Neutrophils (%) (Auto) 59 % (31-73) Lymphocytes (%) (Auto) 32 % (24-48) Monocytes (%) (Auto) 7 % (0-9) Eosinophils (%) (Auto) 2 % (0-3) Basophils (%) (Auto) 1 % (0-3) Neutrophils # (Auto) 4.6 x10^3uL (1.8-7.7) Lymphocytes # (Auto) 2.5 x10^3/uL (1.0-4.8) Monocytes # (Auto) 0.5 x10^3/uL (0.0-1.1) Eosinophils # (Auto) 0.2 x10^3/uL (0.0-0.7) Basophils # (Auto) 0.1 x10^3/uL (0.0-0.2) Sodium Level 139 mmol/L (136-145) Potassium Level 3.5 mmol/L (3.5-5.1) Chloride Level 106 mmol/L (98-107) Carbon Dioxide Level 28 mmol/L (21-32) Anion Gap 5 (6-14) Blood Urea Nitrogen 10 mg/dL (7-20) Creatinine 0.6 mg/dL (0.6-1.0) Estimated GFR (Cockcroft-Gault) 98.8 BUN/Creatinine Ratio 17 (6-20) Glucose Level 156 mg/dL (70-99) Calcium Level 8.1 mg/dL (8.5-10.1) Total Bilirubin 0.2 mg/dL (0.2-1.0) Aspartate Amino Transf (AST/SGOT) 26 U/L (15-37) Alanine Aminotransferase (ALT/SGPT) 37 U/L (14-59) Alkaline Phosphatase 59 U/L (46-116) Total Protein 6.1 g/dL (6.4-8.2) Albumin 1.6 g/dL (3.4-5.0) Albumin/Globulin Ratio 0.4 (1.0-1.7) Meds Current Medications Alteplase, Recombinant (Cathflo) 2 mg 1X ONCE INT CAT Last administered on t 11:32; Start 08/02/16 at 11:15; Stop 08/02/16 at 11:19; Status DC Benzocaine (Hurricaine One) 3 spray 1X ONCE MM ; Start 08/03/16 at 11:00; Stop 08/03/16 at 11:01 Lidocaine HCl (Viscous Lidocaine) 15 ml 1X ONCE MM ; Start 08/03/16 at 11:00; Stop 08/03/16 at 11:01 Lidocaine HCl (Xylocaine 2% Topical 5gm Tube) 1 js 1X ONCE TP ; Start at 11:00; Stop 08/03/16 at 11:01 Ringer's Solution 1,000 ml @ 75 mls/hr [id number] IV ; Start 08/03/16 at 09:00 Assessment Assessment 1. Septic pulmonary emboli, most likely source is dental infection. 2. Hypertension. 3. Diabetes mellitus type 2 oral med controlled 4. Hypokalemia. 5. Hyponatremia. 6. Osteoarthritis. 7. Osteoporosis. 8. Non-morbid obesity. 9. Aortic regurg 10. Severe protein-calorie malnutrition. 11. Gastroesophageal reflux disease. 12. Mixed hyperlipidemia. 13. ECHO EF 60% mild MR, mod AR, mild MR, mod-severe TR, mld pulmonic valvular regurg 14. pulmonary HTN severe 15. anemia from acute illness 16. CKD II 17. 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 pending severe malnutrition stop NS Begin PPN 08/03 Albumin 1.6 PPN dcid supplement anemia sepsis Admit 10.7 7.9 monitor hyponatremia/hypokalemia ADmit Na 131 08/03 139 K 3.1 3.5 BUN 15 10 Cr 0.8 0.6 NS with 40K 75cc/hr on admit-change to PPN 07/31-PPN DC 07/30 KCL 20 meq x 1 admit 07/31 KCL 20 meq x 1 DM II FSBS SSI BS 156-190 DVT/GI prophylaxis SCD/EVA PPI For further plan of care, please refer to the orders. Plan Plan For more details regarding further plans, please refer to the orders. BEST ARROYO MD 08/03/16 0958: IM PROGRESS NOTES- Assessment Assessment The patient was seen and examined by me. Chart reviewed and plan of care formulated. Discussed with, reviewed and agree with QUALITY REP's notes, plan of care and orders with modifications as necessary. For more details regarding further plans, please refer to the orders. Hypokalemia- replace. JOSÉ VIEIRA APRN Aug 03, 2016 09:54 BEST ARROYO MD Aug 03, 2016 09:58
[2016-08-03] MEDS: IV RINGERS,LACTATED 1000ML 1,000 ML IV SCH ×2 (10:00→22:20)
[2016-08-03] MEDS: LISINOPRIL 40 MG TABLET. PO SCH (10:30)
--- NOTE | 2016-08-03 10:45 | PDOC ---
Infectious Disease Note Subjective Subjective feeling good ROS ROS GEN: Denies fevers, chills, sweats HEENT: Denies blurred vision, sore throat CV: Denies chest pain RESP: Denies shortness of air, cough GI: Denies n/v/d NEURO: Denies confusion, dizziness MSK: Denies weakness, joint pain/swelling Vital Sign Vital Signs Vital Signs Date Time Temp Pulse Resp B/P (MAP) Pulse Ox O2 Delivery O2 Flow Rate FiO2 08/03/16 07:00 98.1 66 16 137/76 (96) 97 Room Air 98.1 08/02/16 23:40 3.0 Physical Exam PHYSICAL EXAM GENERAL: NAD, Alert HEENT: PERRL, OC/OP NECK: Supple, no JVD, no LN LUNGS: Clear HEART: S1S2, no gallop, no murmur ABD: Soft, NT, no organomegaly, no rebound EXT: No edema, no cyanosis 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: Alert, oriented x 3, no focal neurologic deficit SKIN: No rash IV: ok Labs Lab Laboratory Tests Test 08/03/16 03:30 White Blood Count 7.9 x10^3/uL (4.0-11.0) Red Blood Count 2.83 x10^6/uL (3.50-5.40) Hemoglobin 7.9 g/dL (12.0-15.5) Hematocrit 24.6 % (36.0-47.0) Mean Corpuscular Volume 87 fL (79-100) Mean Corpuscular Hemoglobin 28 pg (25-35) Mean Corpuscular Hemoglobin Concent 32 g/dL (31-37) Red Cell Distribution Width 14.7 % (11.5-14.5) Platelet Count 377 x10^3/uL (140-400) Neutrophils (%) (Auto) 59 % (31-73) Lymphocytes (%) (Auto) 32 % (24-48) Monocytes (%) (Auto) 7 % (0-9) Eosinophils (%) (Auto) 2 % (0-3) Basophils (%) (Auto) 1 % (0-3) Neutrophils # (Auto) 4.6 x10^3uL (1.8-7.7) Lymphocytes # (Auto) 2.5 x10^3/uL (1.0-4.8) Monocytes # (Auto) 0.5 x10^3/uL (0.0-1.1) Eosinophils # (Auto) 0.2 x10^3/uL (0.0-0.7) Basophils # (Auto) 0.1 x10^3/uL (0.0-0.2) Sodium Level 139 mmol/L (136-145) Potassium Level 3.5 mmol/L (3.5-5.1) Chloride Level 106 mmol/L (98-107) Carbon Dioxide Level 28 mmol/L (21-32) Anion Gap 5 (6-14) Blood Urea Nitrogen 10 mg/dL (7-20) Creatinine 0.6 mg/dL (0.6-1.0) Estimated GFR (Cockcroft-Gault) 98.8 BUN/Creatinine Ratio 17 (6-20) Glucose Level 156 mg/dL (70-99) Calcium Level 8.1 mg/dL (8.5-10.1) Total Bilirubin 0.2 mg/dL (0.2-1.0) Aspartate Amino Transf (AST/SGOT) 26 U/L (15-37) Alanine Aminotransferase (ALT/SGPT) 37 U/L (14-59) Alkaline Phosphatase 59 U/L (46-116) Total Protein 6.1 g/dL (6.4-8.2) Albumin 1.6 g/dL (3.4-5.0) Albumin/Globulin Ratio 0.4 (1.0-1.7) Micro BLOOD CULTURE PRL Preliminary Preliminary report BLD CULT RESULT 1 Preliminary Comment Streptococcus constellatus Recovered from anaerobic bottle only. UNABLE TO GROW FOR SENSITIVITY Performed at: [address] [id number] Otolaryngology Nurse: Mel Roth MD, Phone: [phone] Objective Assessment GPC in chains bacteremia, POA (now 3 of 4 bottles). suspecting endocarditis Fever Leukocytosis- improved Pulmonary nodules Recent dental extractions - PCN V 07/19 for 10 days Severe Protein malnutrition Plan Plan of Care change antibiotics to cefazolin ECHO no vegetations. will need MARYAM TALYA PEREA MD Aug 03, 2016 10:45
[2016-08-03] MEDS ORDERED: LIDOCAINE 2% VISCOUS 15 ML SOLUTION. MM ONE (11:00)
[2016-08-03] MEDS ORDERED: LIDOCAINE 2% TOPICAL JELLY 5GM TUBE. TP ONE (11:00)
[2016-08-03] MEDS ORDERED: BENZOCAINE ONE 20% MUCOSAL SPRAY. MM (11:00)
[2016-08-03] MEDS ORDERED: LIDOCAINE 2% TOPICAL JELLY 30GM TUBE. TP ONE (11:24)
[2016-08-03] MEDS ORDERED: PROPOFOL 20 ML IV ONE (11:58)
[2016-08-03] MEDS ORDERED: LIDOCAINE 2% PF Vial for OR 5 ML VIAL. ONE (11:58)
[2016-08-03] MEDS ORDERED: PROPOFOL 10 MG/ML (20ML) VIAL. IV ONE (12:00)
--- NOTE | 2016-08-03 14:05 | CARD ---
APPROVED REPORT EXAM: Transesophageal echocardiogram with color flow Doppler. INDICATION Infection: Reason For Test : Rule out endocarditis. PROCEDURE After obtaining informed consent, patient underwent transesophageal echo in the PACU. Type of Sedation : General Anesthesia Sedation was provided by anesthesiologist, see EMR for medications administered. Transesophageal probe was inserted and advanced into esophagus by Juan Borrero MD. The MARYMA was performed without complications. Throughout the procedure, the blood pressure, pulse oximetry, cardiac rhythm, and rate were monitored . The patient tolerated the procedure without adverse effects. Recovery from conscious sedation was une ventful and vital signs were stable. LEFT VENTRICLE The left ventricle is normal size. There is normal left ventricular wall thickness. Left ventricle sy stolic function is normal. The Ejection Fraction is 55-60%. There is normal LV segmental wall motion. RIGHT VENTRICLE The right ventricle is normal size. The right ventricular systolic function is normal. ATRIA The left atrium size is normal. The right atrium size is normal. The interatrial septum is intact wit h no evidence for an atrial septal defect or patent foramen ovale as noted on 2-D or Doppler imaging. There is no thrombus noted in the left atrial appendage. AORTIC VALVE The aortic valve is mildly calcified. The aortic valve is trileaflet. Doppler and Color Flow revealed mild aortic regurgitation. There is no significant aortic valvular stenosis. There is no aortic valv ular vegetation. MITRAL VALVE The mitral valve is normal in structure and function. No vegetation on mitral valve. There is no mitr al valve stenosis. Doppler and Color Flow revealed trace to mild mitral regurgitation. TRICUSPID VALVE The tricuspid valve is normal in structure and function. No vegetation noted on valve. Doppler and Co travis Flow revealed mild tricuspid valve regurgitation. There is no tricuspid valve stenosis. PULMONIC VALVE The pulmonary valve is normal in structure and function. Doppler and Color Flow revealed mild pulmoni c valvular regurgitation. There is no pulmonic valvular stenosis. GREAT VESSELS The aortic root is normal in size. PERICARDIAL EFFUSION There is no pleural effusion. Critical Notification Critical Value: No <Conclusion> The left ventricle is normal size. Left ventricle systolic function is normal. The Ejection Fraction is 55-60%. The aortic valve is mildly calcified. The aortic valve is trileaflet. There is no significant aortic valvular stenosis. Doppler and Color Flow revealed mild aortic regurgitation. Doppler and Color Flow revealed trace to mild mitral regurgitation. Doppler and Color Flow revealed mild tricuspid valve regurgitation. Doppler and Color Flow revealed mild pulmonic valvular regurgitation. No evidence of vegetations on this study.
[2016-08-03] MEDS: AMINO AC 3%/ELECTROLYTE/GLYCER 1,000 ML IV SCH (14:09)
[2016-08-03] MEDS ORDERED: POTASSIUM CHLORIDE 20 MEQ TABLET.ER. PO ONE (15:00)
[2016-08-03] MEDS: ACETAMINOPHEN 325 MG TABLET. PO PRN ×2 (15:12→22:56)
--- NOTE | 2016-08-03 15:13 | PDOC ---
PULMONARY PROGRESS NOTES Subjective PT WITH NO INCREASE SOA Vitals Vital Signs Date Time Temp Pulse Resp B/P (MAP) Pulse Ox O2 Delivery O2 Flow Rate FiO2 08/03/16 14:30 98.9 62 16 161/70 (100) 93 Room Air 98.9 08/03/16 12:36 10 ROS: No Nausea, No Chest Pain, No Abdominal Pain, No Increase Cough General: Alert HEENT: Other (nc at perrl, shallow oropharynx, nose clear, neck no lap, thyromegaly) Lungs: Crackles Cardiovascular: S1, S2 Abdomen: Soft, Non-tender Neuro Exam: Alert, Oriented Extremities: No Edema Skin: Warm Labs Laboratory Tests Test 08/01/16 15:15 08/01/16 20:46 08/02/16 00:45 08/02/16 06:18 Potassium Level 3.8 mmol/L (3.5-5.1) 3.8 mmol/L (3.5-5.1) Glucose (Fingerstick) 190 mg/dL (70-99) Urine Collection Type Unknown Urine Color Yellow Urine Clarity Clear Urine pH 7.5 Urine Specific [place] 1.015 Urine Protein Negative mg/dL (NEG-TRACE) Urine Glucose (UA) Negative mg/dL (NEG) Urine Ketones (Stick) Negative mg/dL (NEG) Urine Blood Negative (NEG) Urine Nitrite Negative (NEG) Urine Bilirubin Negative (NEG) Urine Urobilinogen Dipstick 0.2 mg/dL (0.2 mg/dL) Urine Leukocyte Esterase Trace (NEG) Urine RBC 0 /HPF (0-2) Urine WBC 1-4 /HPF (0-4) Urine Squamous Epithelial Cells Few /LPF Urine Bacteria 0 /HPF (0-FEW) White Blood Count 8.6 x10^3/uL (4.0-11.0) Red Blood Count 2.89 x10^6/uL (3.50-5.40) Hemoglobin 8.1 g/dL (12.0-15.5) Hematocrit 24.5 % (36.0-47.0) Mean Corpuscular Volume 85 fL (79-100) Mean Corpuscular Hemoglobin 28 pg (25-35) Mean Corpuscular Hemoglobin Concent 33 g/dL (31-37) Red Cell Distribution Width 14.7 % (11.5-14.5) Platelet Count 366 x10^3/uL (140-400) Neutrophils (%) (Auto) 66 % (31-73) Lymphocytes (%) (Auto) 25 % (24-48) Monocytes (%) (Auto) 8 % (0-9) Eosinophils (%) (Auto) 1 % (0-3) Basophils (%) (Auto) 0 % (0-3) Neutrophils # (Auto) 5.7 x10^3uL (1.8-7.7) Lymphocytes # (Auto) 2.1 x10^3/uL (1.0-4.8) Monocytes # (Auto) 0.7 x10^3/uL (0.0-1.1) Eosinophils # (Auto) 0.1 x10^3/uL (0.0-0.7) Basophils # (Auto) 0.0 x10^3/uL (0.0-0.2) Sodium Level 138 mmol/L (136-145) Chloride Level 105 mmol/L (98-107) Carbon Dioxide Level 28 mmol/L (21-32) Anion Gap 5 (6-14) Blood Urea Nitrogen 9 mg/dL (7-20) Creatinine 0.6 mg/dL (0.6-1.0) Estimated GFR (Cockcroft-Gault) 98.8 BUN/Creatinine Ratio 15 (6-20) Glucose Level 155 mg/dL (70-99) Calcium Level 7.9 mg/dL (8.5-10.1) Total Bilirubin 0.3 mg/dL (0.2-1.0) Aspartate Amino Transf (AST/SGOT) 25 U/L (15-37) Alanine Aminotransferase (ALT/SGPT) 33 U/L (14-59) Alkaline Phosphatase 50 U/L (46-116) Total Protein 6.2 g/dL (6.4-8.2) Albumin 1.5 g/dL (3.4-5.0) Albumin/Globulin Ratio 0.3 (1.0-1.7) Test 08/02/16 08:55 08/03/16 03:30 08/03/16 13:37 Vancomycin Level Trough 18.1 mcg/mL (10.0-20.0) Vancomycin Last Dose Date 08/02/16 Vancomycin Last Dose Time 0100 White Blood Count 7.9 x10^3/uL (4.0-11.0) Red Blood Count 2.83 x10^6/uL (3.50-5.40) Hemoglobin 7.9 g/dL (12.0-15.5) Hematocrit 24.6 % (36.0-47.0) Mean Corpuscular Volume 87 fL (79-100) Mean Corpuscular Hemoglobin 28 pg (25-35) Mean Corpuscular Hemoglobin Concent 32 g/dL (31-37) Red Cell Distribution Width 14.7 % (11.5-14.5) Platelet Count 377 x10^3/uL (140-400) Neutrophils (%) (Auto) 59 % (31-73) Lymphocytes (%) (Auto) 32 % (24-48) Monocytes (%) (Auto) 7 % (0-9) Eosinophils (%) (Auto) 2 % (0-3) Basophils (%) (Auto) 1 % (0-3) Neutrophils # (Auto) 4.6 x10^3uL (1.8-7.7) Lymphocytes # (Auto) 2.5 x10^3/uL (1.0-4.8) Monocytes # (Auto) 0.5 x10^3/uL (0.0-1.1) Eosinophils # (Auto) 0.2 x10^3/uL (0.0-0.7) Basophils # (Auto) 0.1 x10^3/uL (0.0-0.2) Sodium Level 139 mmol/L (136-145) Potassium Level 3.5 mmol/L (3.5-5.1) Chloride Level 106 mmol/L (98-107) Carbon Dioxide Level 28 mmol/L (21-32) Anion Gap 5 (6-14) Blood Urea Nitrogen 10 mg/dL (7-20) Creatinine 0.6 mg/dL (0.6-1.0) Estimated GFR (Cockcroft-Gault) 98.8 BUN/Creatinine Ratio 17 (6-20) Glucose Level 156 mg/dL (70-99) Calcium Level 8.1 mg/dL (8.5-10.1) Total Bilirubin 0.2 mg/dL (0.2-1.0) Aspartate Amino Transf (AST/SGOT) 26 U/L (15-37) Alanine Aminotransferase (ALT/SGPT) 37 U/L (14-59) Alkaline Phosphatase 59 U/L (46-116) Total Protein 6.1 g/dL (6.4-8.2) Albumin 1.6 g/dL (3.4-5.0) Albumin/Globulin Ratio 0.4 (1.0-1.7) Glucose (Fingerstick) 144 mg/dL (70-99) Laboratory Tests Test 08/03/16 03:30 08/03/16 13:37 White Blood Count 7.9 x10^3/uL (4.0-11.0) Red Blood Count 2.83 x10^6/uL (3.50-5.40) Hemoglobin 7.9 g/dL (12.0-15.5) Hematocrit 24.6 % (36.0-47.0) Mean Corpuscular Volume 87 fL (79-100) Mean Corpuscular Hemoglobin 28 pg (25-35) Mean Corpuscular Hemoglobin Concent 32 g/dL (31-37) Red Cell Distribution Width 14.7 % (11.5-14.5) Platelet Count 377 x10^3/uL (140-400) Neutrophils (%) (Auto) 59 % (31-73) Lymphocytes (%) (Auto) 32 % (24-48) Monocytes (%) (Auto) 7 % (0-9) Eosinophils (%) (Auto) 2 % (0-3) Basophils (%) (Auto) 1 % (0-3) Neutrophils # (Auto) 4.6 x10^3uL (1.8-7.7) Lymphocytes # (Auto) 2.5 x10^3/uL (1.0-4.8) Monocytes # (Auto) 0.5 x10^3/uL (0.0-1.1) Eosinophils # (Auto) 0.2 x10^3/uL (0.0-0.7) Basophils # (Auto) 0.1 x10^3/uL (0.0-0.2) Sodium Level 139 mmol/L (136-145) Potassium Level 3.5 mmol/L (3.5-5.1) Chloride Level 106 mmol/L (98-107) Carbon Dioxide Level 28 mmol/L (21-32) Anion Gap 5 (6-14) Blood Urea Nitrogen 10 mg/dL (7-20) Creatinine 0.6 mg/dL (0.6-1.0) Estimated GFR (Cockcroft-Gault) 98.8 BUN/Creatinine Ratio 17 (6-20) Glucose Level 156 mg/dL (70-99) Calcium Level 8.1 mg/dL (8.5-10.1) Total Bilirubin 0.2 mg/dL (0.2-1.0) Aspartate Amino Transf (AST/SGOT) 26 U/L (15-37) Alanine Aminotransferase (ALT/SGPT) 37 U/L (14-59) Alkaline Phosphatase 59 U/L (46-116) Total Protein 6.1 g/dL (6.4-8.2) Albumin 1.6 g/dL (3.4-5.0) Albumin/Globulin Ratio 0.4 (1.0-1.7) Glucose (Fingerstick) 144 mg/dL (70-99) Medications Active Scripts Medications Dose Route/Sig Max Daily Dose Days Date Category Metronidazole 70 Gm Gel.w.appl 70 Gm VG 07/31/16 Reported Vitamin D3 (Cholecalciferol (Vitamin D3)) 1,000 Unit Tablet 1,000 Unit PO 07/31/16 Reported Tricor (Fenofibrate Nanocrystallized) 145 Mg Tablet 145 Mg PO DAILY 07/31/16 Reported Trandolapril 4 Mg Tablet 4 Mg PO 07/31/16 Reported Simvastatin 20 Mg Tablet 20 Mg PO HS 07/31/16 Reported Protonix (Pantoprazole Sodium) 40 Mg Tablet.dr 40 Mg PO DAILY 07/31/16 Reported Penicillin V Potassium 500 Mg Tablet 1 Tab PO QID 07/19/16 Rx Naprosyn (Naproxen) 500 Mg Tablet 1 Tab PO BID 07/19/16 Rx Hydrocodone-Apap 5-325 (Hydrocodone Bit/Acetaminophen) 1 Each Tablet 1-2 Tab PO PRN Q6HRS PRN 5 07/19/[address] reviewed, Multiple bilateral pulmonary nodules, some of which are irregular and some which are cavitary. Impression . 1. Bilateral pulmonary nodules suspect infectious in etilolgy 2. Minimal history of tobacco use. 3. Recent dental extraction leading to pain and leukocytosis despite on penicillin V. 4. Underlying obesity. 5. Underlying diabetes. 6. Severe protein-calorie malnutrition with albumin of 1.6. 7. [place] Plan . 1. continue present broad-spectrum antibiotics. 2. Follow blood cultures. 3. manda no vegetation 4. Sed rate is high sec to infection 5. follow up CT of Chest in 2 months 6. Follow ID recommendations. 7. bipap during sleep, ARIANNE ANDREWS MD Aug 03, 2016 15:13
[2016-08-03 17:13] LABS: C ANCA <1:20 titer (Neg:<1:20)
[2016-08-03] MEDS: SIMVASTATIN 20 MG TABLET PO SCH (21:51)
[2016-08-04 03:00] VITALS: BP 157/76
[2016-08-04] MEDS: AMINO AC 3%/ELECTROLYTE/GLYCER 1,000 ML IV SCH ×2 (03:20→18:40)
[2016-08-04 06:27] LABS: BASO # 0.1 x10^3/uL (0.0-0.2); BASO % 1 % (0-3); EOS % 2 % (0-3); HEMOGLOBIN 8.7 g/dL (12.0-15.5); LYMPH # 2.3 x10^3/uL (1.0-4.8); LYMPH % 29 % (24-48); MEAN CORPUSCULAR HEMOGLOBIN 28 pg (25-35); MEAN CORPUSCULAR HGB CONC 32 g/dL (31-37); MEAN CORPUSCULAR VOLUME 86 fL (79-100); MONO % 7 % (0-9); NEUT % 61 % (31-73); PLATELET COUNT 458 x10^3/uL (140-400); RED BLOOD COUNT 3.12 x10^6/uL (3.50-5.40); RED CELL DISTRIBUTION WIDTH 15.2 % (11.5-14.5); WHITE BLOOD COUNT 8.1 x10^3/uL (4.0-11.0)
[2016-08-04 07:00] VITALS: BP 162/72
[2016-08-04 07:01] LABS: ALBUMIN/GLOBULIN RATIO 0.4 (1.0-1.7); CALCIUM 8.8 mg/dL (8.5-10.1); CREATININE 0.6 mg/dL (0.6-1.0); GFR 98.8; POTASSIUM 3.7 mmol/L (3.5-5.1); TOTAL BILIRUBIN 0.2 mg/dL (0.2-1.0)
--- NOTE | 2016-08-04 08:17 | PDOC ---
DARIELJOSÉ DIRECTOR VISUAL 08/04/16 0817: IM PROGRESS NOTES- Subjective Subjective still weak, appetite fair Objective Objective alert weak Vitals Vital Signs Date Time Temp Pulse Resp B/P (MAP) Pulse Ox O2 Delivery O2 Flow Rate FiO2 08/04/16 03:00 98.3 55 20 157/76 (103) 96 Room Air 98.3 08/03/16 20:00 10.0 Input & Output Intake and Output 08/04/16 07:00 Intake Total 1745 ml Output Total 1100 ml Balance 645 ml Intake Oral 645 ml IV Total 1100 ml Output Urine Total 1100 ml # Voids 5 Physical Exam Physical Exam General appearance - alert, ill appearing, and in no distress Mental Status - alert, oriented to person, place, and time, affect appropriate to mood Head - normal Chest - clear to auscultation, no wheezes, rales or rhonchi, symmetric air entry Heart - S1 and S2 normal, + murmur loud Abdomen - soft, nontender, nondistended, obese BS + Neurological - no acute focal neurological deficit noted Musculoskeletal - no muscular tenderness noted Extremities - no pedal edema Skin - warm and dry Labs Laboratory Tests Test 08/02/16 08:55 08/03/16 03:30 08/03/16 13:37 08/03/16 16:41 Vancomycin Level Trough 18.1 mcg/mL (10.0-20.0) Vancomycin Last Dose Date 08/02/16 Vancomycin Last Dose Time 0100 White Blood Count 7.9 x10^3/uL (4.0-11.0) Red Blood Count 2.83 x10^6/uL (3.50-5.40) Hemoglobin 7.9 g/dL (12.0-15.5) Hematocrit 24.6 % (36.0-47.0) Mean Corpuscular Volume 87 fL (79-100) Mean Corpuscular Hemoglobin 28 pg (25-35) Mean Corpuscular Hemoglobin Concent 32 g/dL (31-37) Red Cell Distribution Width 14.7 % (11.5-14.5) Platelet Count 377 x10^3/uL (140-400) Neutrophils (%) (Auto) 59 % (31-73) Lymphocytes (%) (Auto) 32 % (24-48) Monocytes (%) (Auto) 7 % (0-9) Eosinophils (%) (Auto) 2 % (0-3) Basophils (%) (Auto) 1 % (0-3) Neutrophils # (Auto) 4.6 x10^3uL (1.8-7.7) Lymphocytes # (Auto) 2.5 x10^3/uL (1.0-4.8) Monocytes # (Auto) 0.5 x10^3/uL (0.0-1.1) Eosinophils # (Auto) 0.2 x10^3/uL (0.0-0.7) Basophils # (Auto) 0.1 x10^3/uL (0.0-0.2) Sodium Level 139 mmol/L (136-145) Potassium Level 3.5 mmol/L (3.5-5.1) Chloride Level 106 mmol/L (98-107) Carbon Dioxide Level 28 mmol/L (21-32) Anion Gap 5 (6-14) Blood Urea Nitrogen 10 mg/dL (7-20) Creatinine 0.6 mg/dL (0.6-1.0) Estimated GFR (Cockcroft-Gault) 98.8 BUN/Creatinine Ratio 17 (6-20) Glucose Level 156 mg/dL (70-99) Calcium Level 8.1 mg/dL (8.5-10.1) Total Bilirubin 0.2 mg/dL (0.2-1.0) Aspartate Amino Transf (AST/SGOT) 26 U/L (15-37) Alanine Aminotransferase (ALT/SGPT) 37 U/L (14-59) Alkaline Phosphatase 59 U/L (46-116) Total Protein 6.1 g/dL (6.4-8.2) Albumin 1.6 g/dL (3.4-5.0) Albumin/Globulin Ratio 0.4 (1.0-1.7) Glucose (Fingerstick) 144 mg/dL (70-99) 133 mg/dL (70-99) Test 08/03/16 21:30 08/04/16 05:50 08/04/16 07:35 Glucose (Fingerstick) 242 mg/dL (70-99) 163 mg/dL (70-99) White Blood Count 8.1 x10^3/uL (4.0-11.0) Red Blood Count 3.12 x10^6/uL (3.50-5.40) Hemoglobin 8.7 g/dL (12.0-15.5) Hematocrit 27.0 % (36.0-47.0) Mean Corpuscular Volume 86 fL (79-100) Mean Corpuscular Hemoglobin 28 pg (25-35) Mean Corpuscular Hemoglobin Concent 32 g/dL (31-37) Red Cell Distribution Width 15.2 % (11.5-14.5) Platelet Count 458 x10^3/uL (140-400) Neutrophils (%) (Auto) 61 % (31-73) Lymphocytes (%) (Auto) 29 % (24-48) Monocytes (%) (Auto) 7 % (0-9) Eosinophils (%) (Auto) 2 % (0-3) Basophils (%) (Auto) 1 % (0-3) Neutrophils # (Auto) 4.9 x10^3uL (1.8-7.7) Lymphocytes # (Auto) 2.3 x10^3/uL (1.0-4.8) Monocytes # (Auto) 0.6 x10^3/uL (0.0-1.1) Eosinophils # (Auto) 0.1 x10^3/uL (0.0-0.7) Basophils # (Auto) 0.1 x10^3/uL (0.0-0.2) Sodium Level 138 mmol/L (136-145) Potassium Level 3.7 mmol/L (3.5-5.1) Chloride Level 103 mmol/L (98-107) Carbon Dioxide Level 28 mmol/L (21-32) Anion Gap 7 (6-14) Blood Urea Nitrogen 11 mg/dL (7-20) Creatinine 0.6 mg/dL (0.6-1.0) Estimated GFR (Cockcroft-Gault) 98.8 BUN/Creatinine Ratio 18 (6-20) Glucose Level 150 mg/dL (70-99) Calcium Level 8.8 mg/dL (8.5-10.1) Total Bilirubin 0.2 mg/dL (0.2-1.0) Aspartate Amino Transf (AST/SGOT) 33 U/L (15-37) Alanine Aminotransferase (ALT/SGPT) 39 U/L (14-59) Alkaline Phosphatase 61 U/L (46-116) Total Protein 7.0 g/dL (6.4-8.2) Albumin 2.0 g/dL (3.4-5.0) Albumin/Globulin Ratio 0.4 (1.0-1.7) Laboratory Tests Test 08/03/16 13:37 08/03/16 16:41 08/03/16 21:30 08/04/16 05:50 Glucose (Fingerstick) 144 mg/dL (70-99) 133 mg/dL (70-99) 242 mg/dL (70-99) White Blood Count 8.1 x10^3/uL (4.0-11.0) Red Blood Count 3.12 x10^6/uL (3.50-5.40) Hemoglobin 8.7 g/dL (12.0-15.5) Hematocrit 27.0 % (36.0-47.0) Mean Corpuscular Volume 86 fL (79-100) Mean Corpuscular Hemoglobin 28 pg (25-35) Mean Corpuscular Hemoglobin Concent 32 g/dL (31-37) Red Cell Distribution Width 15.2 % (11.5-14.5) Platelet Count 458 x10^3/uL (140-400) Neutrophils (%) (Auto) 61 % (31-73) Lymphocytes (%) (Auto) 29 % (24-48) Monocytes (%) (Auto) 7 % (0-9) Eosinophils (%) (Auto) 2 % (0-3) Basophils (%) (Auto) 1 % (0-3) Neutrophils # (Auto) 4.9 x10^3uL (1.8-7.7) Lymphocytes # (Auto) 2.3 x10^3/uL (1.0-4.8) Monocytes # (Auto) 0.6 x10^3/uL (0.0-1.1) Eosinophils # (Auto) 0.1 x10^3/uL (0.0-0.7) Basophils # (Auto) 0.1 x10^3/uL (0.0-0.2) Sodium Level 138 mmol/L (136-145) Potassium Level 3.7 mmol/L (3.5-5.1) Chloride Level 103 mmol/L (98-107) Carbon Dioxide Level 28 mmol/L (21-32) Anion Gap 7 (6-14) Blood Urea Nitrogen 11 mg/dL (7-20) Creatinine 0.6 mg/dL (0.6-1.0) Estimated GFR (Cockcroft-Gault) 98.8 BUN/Creatinine Ratio 18 (6-20) Glucose Level 150 mg/dL (70-99) Calcium Level 8.8 mg/dL (8.5-10.1) Total Bilirubin 0.2 mg/dL (0.2-1.0) Aspartate Amino Transf (AST/SGOT) 33 U/L (15-37) Alanine Aminotransferase (ALT/SGPT) 39 U/L (14-59) Alkaline Phosphatase 61 U/L (46-116) Total Protein 7.0 g/dL (6.4-8.2) Albumin 2.0 g/dL (3.4-5.0) Albumin/Globulin Ratio 0.4 (1.0-1.7) Test 08/04/16 07:35 Glucose (Fingerstick) 163 mg/dL (70-99) Meds Current Medications Benzocaine (Hurricaine One) 3 spray 1X ONCE MM ; Start 08/03/16 at 11:00; Stop 08/03/16 at 11:01; Status DC Cefazolin Sodium 2 gm/Sodium Chloride 50 ml @ 100 mls/hr Q8HRS IV Last administered on 08/04/16t 05:52; Start 08/03/16 at 11:00 Lidocaine HCl (Lidocaine Pf 2% Vial) 5 ml STK-MED ONCE .ROUTE ; Start 08/03/16 at 11:58; Stop 08/03/16 at 11:59; Status DC Lidocaine HCl (Viscous Lidocaine) 15 ml 1X ONCE MM ; Start 08/03/16 at 11:00; Stop 08/03/16 at 11:01; Status DC Lidocaine HCl (Xylocaine 2% Topical 30gm Tube) 30 js STK-MED ONCE TP ; Start at 11:24; Stop 08/03/16 at 11:25; Status DC Lidocaine HCl (Xylocaine 2% Topical 5gm Tube) 1 js 1X ONCE TP ; Start at 11:00; Stop 08/03/16 at 11:01; Status DC Lisinopril (Prinivil) 40 mg DAILY PO ; Start 08/03/16 at 10:30 Potassium Chloride (Klor-Con) 20 meq 1X ONCE PO Last administered on 15:11; Start 08/03/16 at 15:00; Stop 08/03/16 at 15:01; Status DC Propofol 20 ml @ As Directed STK-MED ONCE IV ; Start 08/03/16 at 11:58; Stop at 11:59; Status DC Ringer's Solution 1,000 ml @ 50 mls/hr Q20H IV ; Start 08/03/16 at 09:40; Stop 08/03/16 at 21:39; Status DC Ringer's Solution 1,000 ml @ 75 mls/hr [id number] IV Last administered on t 10:00; Start 08/03/16 at 09:00; Stop 08/04/16 at 05:21; Status DC Assessment Assessment 1. Septic pulmonary emboli, most likely source is dental infection. 2. Hypertension. 3. Diabetes mellitus type 2 oral med controlled 4. Hypokalemia. 5. Hyponatremia. 6. Osteoarthritis. 7. Osteoporosis. 8. Non-morbid obesity. 9. Aortic regurg 10. Severe protein-calorie malnutrition. 11. Gastroesophageal reflux disease. 12. Mixed hyperlipidemia. 13. ECHO EF 60% mild MR, mod AR, mild MR, mod-severe TR, mld pulmonic valvular regurg 14. pulmonary HTN severe 15. anemia from acute illness 16. CKD II 17. 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 pending BC GPC in chains 3/4 bottles-antibiotic changed to Ancef 08/03 MARYAM neg vegetation 08/03 Per pulm-repeat CT 3 months antibiotics at discharge-probable Keflex, await final ID severe malnutrition stop NS Begin PPN 08/03 Albumin 1.6 PPN dcid supplement 08/04 Alb 2.0 anemia sepsis Admit 10.7 08/04 8.7 monitor hyponatremia/hypokalemia ADmit Na 131 08/04 138 K 3.1 3.7 BUN 15 11 Cr 0.8 0.6 NS with 40K 75cc/hr on admit-change to PPN 07/31-PPN DC 07/30 KCL 20 meq x 1 admit 07/31 KCL 20 meq x 1 Procal infusing DM II FSBS SSI BS 150-242 DVT/GI prophylaxis SCD/EVA PPI For further plan of care, please refer to the orders. Plan Plan For more details regarding further plans, please refer to the orders. BEST ARROYO MD 08/04/16 0939: IM PROGRESS NOTES- Assessment Assessment The patient was seen and examined by me. Chart reviewed and plan of care formulated. Discussed with, reviewed and agree with TELECOM MANAGER's notes, plan of care and orders with modifications as necessary. For more details regarding further plans, please refer to the orders. JOSÉ VIEIRA APRN Aug 04, 2016 08:17 BEST ARROYO MD Aug 04, 2016 09:39
--- NOTE | 2016-08-04 08:20 | DISCH ---
DISCHARGE INSTRUCTIONS Condition on Discharge Condition on Discharge: Stable Activity After Discharge Activity Instructions for Disc: Activity as tolerated Diet after Discharge Diet after Discharge: Cardiac Checks after Discharge DC Comment: check BS before meals, bring log to appt. Community/Resources/Services Services at Discharge: Home Health Care Services (PT OT ), Infusion Therapy ( Ancef 2gm IV q8hr ) Contacting the DRSelene after DC Call your doctor for: Concerns you may have Follow-Up Follow up with: Min Wednesday next week if home with HHN; If admit to SNU: admit to Dr. Bingham Follow Up With: Dr. Houston in 2 weeks Treatment/Equipment after DC Infusion Equipment, home use: PICC Line (PICC dressing change weekly and prn; caps change weekly, flush with NS 10cc daily-3 ports ) JOSÉ VIEIRA APRN Aug 04, 2016 08:20
[2016-08-04] MEDS ORDERED: ACET325T9 PO (08:22)
[2016-08-04] MEDS: PANTOPRAZOLE 40 MG TABLET.DR. PO SCH (08:27)
[2016-08-04] MEDS: LISINOPRIL 40 MG TABLET. PO SCH (08:29)
[2016-08-04] MEDS: CHOLECALCIFEROL (VITAMIN D3) 1,000 UNIT TABLET PO SCH (08:29)
--- NOTE | 2016-08-04 08:57 | PDOC ---
PULMONARY PROGRESS NOTES Subjective PT WITH NO INCREASE SOA Vitals Vital Signs Date Time Temp Pulse Resp B/P (MAP) Pulse Ox O2 Delivery O2 Flow Rate FiO2 08/04/16 08:29 61 162/72 08/04/16 07:00 97.9 18 96 Nasal Cannula 3.0 97.9 ROS: No Nausea, No Chest Pain, No Abdominal Pain, No Increase Cough General: Alert HEENT: Other (nc at perrl, shallow oropharynx, nose clear, neck no lap, thyromegaly) Lungs: Crackles Cardiovascular: S1, S2 Abdomen: Soft, Non-tender Neuro Exam: Alert, Oriented Extremities: No Edema Skin: Warm Labs Laboratory Tests Test 08/03/16 03:30 08/03/16 13:37 08/03/16 16:41 08/03/16 21:30 White Blood Count 7.9 x10^3/uL (4.0-11.0) Red Blood Count 2.83 x10^6/uL (3.50-5.40) Hemoglobin 7.9 g/dL (12.0-15.5) Hematocrit 24.6 % (36.0-47.0) Mean Corpuscular Volume 87 fL (79-100) Mean Corpuscular Hemoglobin 28 pg (25-35) Mean Corpuscular Hemoglobin Concent 32 g/dL (31-37) Red Cell Distribution Width 14.7 % (11.5-14.5) Platelet Count 377 x10^3/uL (140-400) Neutrophils (%) (Auto) 59 % (31-73) Lymphocytes (%) (Auto) 32 % (24-48) Monocytes (%) (Auto) 7 % (0-9) Eosinophils (%) (Auto) 2 % (0-3) Basophils (%) (Auto) 1 % (0-3) Neutrophils # (Auto) 4.6 x10^3uL (1.8-7.7) Lymphocytes # (Auto) 2.5 x10^3/uL (1.0-4.8) Monocytes # (Auto) 0.5 x10^3/uL (0.0-1.1) Eosinophils # (Auto) 0.2 x10^3/uL (0.0-0.7) Basophils # (Auto) 0.1 x10^3/uL (0.0-0.2) Sodium Level 139 mmol/L (136-145) Potassium Level 3.5 mmol/L (3.5-5.1) Chloride Level 106 mmol/L (98-107) Carbon Dioxide Level 28 mmol/L (21-32) Anion Gap 5 (6-14) Blood Urea Nitrogen 10 mg/dL (7-20) Creatinine 0.6 mg/dL (0.6-1.0) Estimated GFR (Cockcroft-Gault) 98.8 BUN/Creatinine Ratio 17 (6-20) Glucose Level 156 mg/dL (70-99) Calcium Level 8.1 mg/dL (8.5-10.1) Total Bilirubin 0.2 mg/dL (0.2-1.0) Aspartate Amino Transf (AST/SGOT) 26 U/L (15-37) Alanine Aminotransferase (ALT/SGPT) 37 U/L (14-59) Alkaline Phosphatase 59 U/L (46-116) Total Protein 6.1 g/dL (6.4-8.2) Albumin 1.6 g/dL (3.4-5.0) Albumin/Globulin Ratio 0.4 (1.0-1.7) Glucose (Fingerstick) 144 mg/dL (70-99) 133 mg/dL (70-99) 242 mg/dL (70-99) Test 08/04/16 05:50 08/04/16 07:35 White Blood Count 8.1 x10^3/uL (4.0-11.0) Red Blood Count 3.12 x10^6/uL (3.50-5.40) Hemoglobin 8.7 g/dL (12.0-15.5) Hematocrit 27.0 % (36.0-47.0) Mean Corpuscular Volume 86 fL (79-100) Mean Corpuscular Hemoglobin 28 pg (25-35) Mean Corpuscular Hemoglobin Concent 32 g/dL (31-37) Red Cell Distribution Width 15.2 % (11.5-14.5) Platelet Count 458 x10^3/uL (140-400) Neutrophils (%) (Auto) 61 % (31-73) Lymphocytes (%) (Auto) 29 % (24-48) Monocytes (%) (Auto) 7 % (0-9) Eosinophils (%) (Auto) 2 % (0-3) Basophils (%) (Auto) 1 % (0-3) Neutrophils # (Auto) 4.9 x10^3uL (1.8-7.7) Lymphocytes # (Auto) 2.3 x10^3/uL (1.0-4.8) Monocytes # (Auto) 0.6 x10^3/uL (0.0-1.1) Eosinophils # (Auto) 0.1 x10^3/uL (0.0-0.7) Basophils # (Auto) 0.1 x10^3/uL (0.0-0.2) Sodium Level 138 mmol/L (136-145) Potassium Level 3.7 mmol/L (3.5-5.1) Chloride Level 103 mmol/L (98-107) Carbon Dioxide Level 28 mmol/L (21-32) Anion Gap 7 (6-14) Blood Urea Nitrogen 11 mg/dL (7-20) Creatinine 0.6 mg/dL (0.6-1.0) Estimated GFR (Cockcroft-Gault) 98.8 BUN/Creatinine Ratio 18 (6-20) Glucose Level 150 mg/dL (70-99) Calcium Level 8.8 mg/dL (8.5-10.1) Total Bilirubin 0.2 mg/dL (0.2-1.0) Aspartate Amino Transf (AST/SGOT) 33 U/L (15-37) Alanine Aminotransferase (ALT/SGPT) 39 U/L (14-59) Alkaline Phosphatase 61 U/L (46-116) Total Protein 7.0 g/dL (6.4-8.2) Albumin 2.0 g/dL (3.4-5.0) Albumin/Globulin Ratio 0.4 (1.0-1.7) Glucose (Fingerstick) 163 mg/dL (70-99) Laboratory Tests Test 08/03/16 13:37 08/03/16 16:41 08/03/16 21:30 08/04/16 05:50 Glucose (Fingerstick) 144 mg/dL (70-99) 133 mg/dL (70-99) 242 mg/dL (70-99) White Blood Count 8.1 x10^3/uL (4.0-11.0) Red Blood Count 3.12 x10^6/uL (3.50-5.40) Hemoglobin 8.7 g/dL (12.0-15.5) Hematocrit 27.0 % (36.0-47.0) Mean Corpuscular Volume 86 fL (79-100) Mean Corpuscular Hemoglobin 28 pg (25-35) Mean Corpuscular Hemoglobin Concent 32 g/dL (31-37) Red Cell Distribution Width 15.2 % (11.5-14.5) Platelet Count 458 x10^3/uL (140-400) Neutrophils (%) (Auto) 61 % (31-73) Lymphocytes (%) (Auto) 29 % (24-48) Monocytes (%) (Auto) 7 % (0-9) Eosinophils (%) (Auto) 2 % (0-3) Basophils (%) (Auto) 1 % (0-3) Neutrophils # (Auto) 4.9 x10^3uL (1.8-7.7) Lymphocytes # (Auto) 2.3 x10^3/uL (1.0-4.8) Monocytes # (Auto) 0.6 x10^3/uL (0.0-1.1) Eosinophils # (Auto) 0.1 x10^3/uL (0.0-0.7) Basophils # (Auto) 0.1 x10^3/uL (0.0-0.2) Sodium Level 138 mmol/L (136-145) Potassium Level 3.7 mmol/L (3.5-5.1) Chloride Level 103 mmol/L (98-107) Carbon Dioxide Level 28 mmol/L (21-32) Anion Gap 7 (6-14) Blood Urea Nitrogen 11 mg/dL (7-20) Creatinine 0.6 mg/dL (0.6-1.0) Estimated GFR (Cockcroft-Gault) 98.8 BUN/Creatinine Ratio 18 (6-20) Glucose Level 150 mg/dL (70-99) Calcium Level 8.8 mg/dL (8.5-10.1) Total Bilirubin 0.2 mg/dL (0.2-1.0) Aspartate Amino Transf (AST/SGOT) 33 U/L (15-37) Alanine Aminotransferase (ALT/SGPT) 39 U/L (14-59) Alkaline Phosphatase 61 U/L (46-116) Total Protein 7.0 g/dL (6.4-8.2) Albumin 2.0 g/dL (3.4-5.0) Albumin/Globulin Ratio 0.4 (1.0-1.7) Test 08/04/16 07:35 Glucose (Fingerstick) 163 mg/dL (70-99) Medications Active Scripts Medications Dose Route/Sig Max Daily Dose Days Date Category Metronidazole 70 Gm Gel.w.appl 70 Gm VG 07/31/16 Reported Vitamin D3 (Cholecalciferol (Vitamin D3)) 1,000 Unit Tablet 1,000 Unit PO 07/31/16 Reported Tricor (Fenofibrate Nanocrystallized) 145 Mg Tablet 145 Mg PO DAILY 07/31/16 Reported Trandolapril 4 Mg Tablet 4 Mg PO 07/31/16 Reported Simvastatin 20 Mg Tablet 20 Mg PO HS 07/31/16 Reported Protonix (Pantoprazole Sodium) 40 Mg Tablet.dr 40 Mg PO DAILY 07/31/16 Reported Penicillin V Potassium 500 Mg Tablet 1 Tab PO QID 07/19/16 Rx Naprosyn (Naproxen) 500 Mg Tablet 1 Tab PO BID 07/19/16 Rx Hydrocodone-Apap 5-325 (Hydrocodone Bit/Acetaminophen) 1 Each Tablet 1-2 Tab PO PRN Q6HRS PRN 5 07/19/[address] reviewed, Multiple bilateral pulmonary nodules, some of which are irregular and some which are cavitary. Impression . 1. Bilateral pulmonary nodules suspect infectious in etilolgy 2. Minimal history of tobacco use. 3. Recent dental extraction leading to pain and leukocytosis despite on penicillin V. 4. Underlying obesity. 5. Underlying diabetes. 6. Severe protein-calorie malnutrition with albumin of 1.6. 7. [place] Plan . ok to d/c soon follow up in office with repeat CT 2 months antibx per id cpap qhs ARIANNE ANDREWS MD Aug 04, 2016 08:57
[2016-08-04 11:00] VITALS: BP 135/57
--- NOTE | 2016-08-04 11:24 | PDOC ---
Infectious Disease Note Subjective Subjective feeling good ROS ROS GEN: Denies fevers, chills, sweats HEENT: Denies blurred vision, sore throat CV: Denies chest pain RESP: Denies shortness of air, cough GI: Denies n/v/d NEURO: Denies confusion, dizziness MSK: Denies weakness, joint pain/swelling Vital Sign Vital Signs Vital Signs Date Time Temp Pulse Resp B/P (MAP) Pulse Ox O2 Delivery O2 Flow Rate FiO2 08/04/16 08:29 61 162/72 08/04/16 07:00 97.9 18 96 Nasal Cannula 3.0 97.9 Physical Exam PHYSICAL EXAM GENERAL: NAD, Alert HEENT: PERRL, OC/OP NECK: Supple, no JVD, no LN LUNGS: Clear HEART: S1S2, no gallop, no murmur ABD: Soft, NT, no organomegaly, no rebound EXT: No edema, no cyanosis [employer] MECH[employer]IC: Alert, oriented x 3, no focal neurologic deficit SKIN: No rash IV: ok Labs Lab Laboratory Tests Test 08/03/16 13:37 08/03/16 16:41 08/03/16 21:30 08/04/16 05:50 Glucose (Fingerstick) 144 mg/dL (70-99) 133 mg/dL (70-99) 242 mg/dL (70-99) White Blood Count 8.1 x10^3/uL (4.0-11.0) Red Blood Count 3.12 x10^6/uL (3.50-5.40) Hemoglobin 8.7 g/dL (12.0-15.5) Hematocrit 27.0 % (36.0-47.0) Mean Corpuscular Volume 86 fL (79-100) Mean Corpuscular Hemoglobin 28 pg (25-35) Mean Corpuscular Hemoglobin Concent 32 g/dL (31-37) Red Cell Distribution Width 15.2 % (11.5-14.5) Platelet Count 458 x10^3/uL (140-400) Neutrophils (%) (Auto) 61 % (31-73) Lymphocytes (%) (Auto) 29 % (24-48) Monocytes (%) (Auto) 7 % (0-9) Eosinophils (%) (Auto) 2 % (0-3) Basophils (%) (Auto) 1 % (0-3) Neutrophils # (Auto) 4.9 x10^3uL (1.8-7.7) Lymphocytes # (Auto) 2.3 x10^3/uL (1.0-4.8) Monocytes # (Auto) 0.6 x10^3/uL (0.0-1.1) Eosinophils # (Auto) 0.1 x10^3/uL (0.0-0.7) Basophils # (Auto) 0.1 x10^3/uL (0.0-0.2) Sodium Level 138 mmol/L (136-145) Potassium Level 3.7 mmol/L (3.5-5.1) Chloride Level 103 mmol/L (98-107) Carbon Dioxide Level 28 mmol/L (21-32) Anion Gap 7 (6-14) Blood Urea Nitrogen 11 mg/dL (7-20) Creatinine 0.6 mg/dL (0.6-1.0) Estimated GFR (Cockcroft-Gault) 98.8 BUN/Creatinine Ratio 18 (6-20) Glucose Level 150 mg/dL (70-99) Calcium Level 8.8 mg/dL (8.5-10.1) Total Bilirubin 0.2 mg/dL (0.2-1.0) Aspartate Amino Transf (AST/SGOT) 33 U/L (15-37) Alanine Aminotransferase (ALT/SGPT) 39 U/L (14-59) Alkaline Phosphatase 61 U/L (46-116) Total Protein 7.0 g/dL (6.4-8.2) Albumin 2.0 g/dL (3.4-5.0) Albumin/Globulin Ratio 0.4 (1.0-1.7) Test 08/04/16 07:35 Glucose (Fingerstick) 163 mg/dL (70-99) Micro BLOOD CULTURE PRL Preliminary Preliminary report BLD CULT RESULT 1 Preliminary Comment Streptococcus constellatus Recovered from anaerobic bottle only. UNABLE TO GROW FOR SENSITIVITY Performed at: [address] [id number] [employer] Tender: Mel Roth MD, Phone: [phone] Objective Assessment GPC in chains bacteremia, POA strep intermidius, MARYAM Neg Fever Leukocytosis- improved Pulmonary nodules Recent dental extractions - PCN V 6/4 for 10 days Severe Protein malnutrition Plan Plan of Care cefazolin d/c soon on iv cefazolin at least 2 wks, f/u with us in 2 wks wkly cbc, bun/cr , sed rate TALYA PEREA MD Aug 04, 2016 11:24
[2016-08-04 14:45] VITALS: BP 137/68
[2016-08-04] MEDS: ACETAMINOPHEN 325 MG TABLET. PO PRN ×2 (15:16→20:51)
[2016-08-04 19:10] VITALS: BP 145/67
[2016-08-04] MEDS ORDERED: ZOLPIDEM 5 MG TABLET. PO PRN (20:15)
[2016-08-04] MEDS: SIMVASTATIN 20 MG TABLET PO SCH (20:52)
[2016-08-04 23:10] VITALS: BP 157/64
[2016-08-05] MEDS: AMINO AC 3%/ELECTROLYTE/GLYCER 1,000 ML IV SCH ×2 (05:57→12:45)
[2016-08-05 06:50] LABS: ALBUMIN 2.1 g/dL (3.4-5.0); ALBUMIN/GLOBULIN RATIO 0.4 (1.0-1.7); CALCIUM 8.8 mg/dL (8.5-10.1); CREATININE 0.6 mg/dL (0.6-1.0); GFR 98.8; POTASSIUM 3.7 mmol/L (3.5-5.1); TOTAL BILIRUBIN 0.2 mg/dL (0.2-1.0)
[2016-08-05 07:00] VITALS: BP 108/76
--- NOTE | 2016-08-05 08:33 | PDOC3 ---
JOSÉ VIEIRA FUNERAL PLANNING COUNSELOR 08/05/16 0833: IM DISCHARGE & PROGRESS NOTES Date of Admission Date of Admission Date of Admission: Jul 30, 2016 at 13:00 Date of Discharge Date of Discharge 08/05/16 Primary Diagnosis Primary Diagnosis Assessment 1. Septic pulmonary emboli, most likely source is dental infection. 2. Hypertension. 3. Diabetes mellitus type 2 oral med controlled 4. Hypokalemia. 5. Hyponatremia. 6. Osteoarthritis. 7. Osteoporosis. 8. Non-morbid obesity. 9. Aortic regurg 10. Severe protein-calorie malnutrition. 11. Gastroesophageal reflux disease. 12. Mixed hyperlipidemia. 13. ECHO EF 60% mild MR, mod AR, mild MR, mod-severe TR, mld pulmonic valvular regurg 14. pulmonary HTN severe 15. anemia from acute illness 16. CKD II 17. multiple dental caries, teeth fractured below gum line Consults Consults Kaleb King MD, Dr., Dr. Procedures Procedures APPROVED REPORT EXAM: Two-dimensional and M-mode echocardiogram with Doppler and color Doppler. Other Information Quality : Good INDICATION Infection:Rule out subacute bacterial endocarditis 2D DIMENSIONS RVDd 3.7 (2.9-3.5cm) Left Atrium(2D) 4.3 (1.6-4.0cm) IVSd 1.4 (0.7-1.1cm) Aortic Root(2D) 3.0 (2.0-3.7cm) LVDd 4.9 (3.9-5.9cm) LVOT Diameter 2.2 (1.8-2.4cm) PWd 1.1 (0.7-1.1cm) LVDs 2.5 (2.5-4.0cm) FS (%) 30.0 % SV 88.9 ml LVEF(%) 60.0 (>50%) Aortic Valve AoV Peak Wojciech. 173.8cm/s AoV VTI 32.5cm AO Peak GR. 12.1mmHg LVOT VTI 29.06cm AO Mean GR. 6mmHg MARINE (VTI) 3.40cm2 AI P 1/2 Time 470ms Mitral Valve MV E Velocity 143.8cm/s MV DECEL TIME 120ms MV A Velocity 65.4cm/s E/A Ratio 2.2 TDI Lateral E' P. V 10.49cm/s Medial E' P. V 6.50cm/s E/Lateral E' 13.7 E/Medial E' 22.1 Tricuspid Valve TR P. Velocity 399cm/s RAP ESTIMATE 3mmHg TR Peak Gr. 64mmHg RVSP 67mmHg Pulmonary Vein S1 Velocity 44.8cm/s S2 Velocity 58.90cm/s D2 Velocity 58.9cm/s PVa duration 122msec LEFT VENTRICLE The left ventricle is normal size. There is mild asymmetric septal left ventricular hypertrophy. The left ventricular systolic function is normal and the ejection fraction is within normal range. The Ejection Fraction is 60%. There is normal LV segmental wall motion. RIGHT VENTRICLE The right ventricle is normal size. The right ventricular systolic function is normal. ATRIA The left atrium is mildly dilated. The right atrium size is normal. The interatrial septum is intact with no evidence for an atrial septal defect or patent foramen ovale as noted on 2-D or Doppler imaging. AORTIC VALVE The aortic valve is mildly thickened but opens well. Doppler and Color Flow revealed moderate aortic regurgitation. There is no significant aortic valvular stenosis. MITRAL VALVE The mitral valve is calcified but opens well. Mitral annular calcification is mild. There is no evidence of mitral valve prolapse. There is no mitral valve stenosis. Doppler and Color-flow revealed mild mitral regurgitation. TRICUSPID VALVE The tricuspid valve is normal in structure Doppler and Color Flow revealed moderate to severe tricuspid regurgitation. There is severe pulmonary hypertension. The PA pressure was estimated at 67 mmHg. There is no tricuspid valve stenosis. PULMONIC VALVE The pulmonary valve is normal in structure and function. Doppler and Color Flow revealed mild pulmonic valvular regurgitation. There is no pulmonic valvular stenosis. GREAT VESSELS The aortic root is normal in size. The ascending aorta is normal in size. The IVC is normal in size and collapses >50% with inspiration. PERICARDIAL EFFUSION There is no evidence of significant pericardial effusion. Critical Notification Critical Value: No <Conclusion> The left ventricular systolic function is normal and the ejection fraction is within normal range. The Ejection Fraction is 60%. The left atrium is mildly dilated. The right atrium size is normal. Doppler and Color Flow revealed moderate aortic regurgitation. The aortic valve is mildly thickened but opens well. Doppler and Color-flow revealed mild mitral regurgitation. The mitral valve is calcified but opens well. Mitral annular calcification is mild. Doppler and Color Flow revealed moderate to severe tricuspid regurgitation. There is severe pulmonary hypertension. The PA pressure was estimated at 67 mmHg. Doppler and Color Flow revealed mild pulmonic valvular regurgitation. There is no evidence of significant pericardial effusion. DICTATED and SIGNED BY: ANY JAMES MD DATE: 07/31/16 1638 APPROVED REPORT EXAM: Transesophageal echocardiogram with color flow Doppler. INDICATION Infection: Reason For Test : Rule out endocarditis. PROCEDURE After obtaining informed consent, patient underwent transesophageal echo in the PACU. Type of Sedation : General Anesthesia Sedation was provided by anesthesiologist, see EMR for medications administered. Transesophageal probe was inserted and advanced into esophagus by Huyen Farrar MD. The MARYAM was performed without complications. Throughout the procedure, the blood pressure, pulse oximetry, cardiac rhythm, and rate were monitored. The patient tolerated the procedure without adverse effects. Recovery from conscious sedation was uneventful and vital signs were stable. LEFT VENTRICLE The left ventricle is normal size. There is normal left ventricular wall thickness. Left ventricle systolic function is normal. The Ejection Fraction is 55-60%. There is normal LV segmental wall motion. RIGHT VENTRICLE The right ventricle is normal size. The right ventricular systolic function is normal. ATRIA The left atrium size is normal. The right atrium size is normal. The interatrial septum is intact with no evidence for an atrial septal defect or patent foramen ovale as noted on 2-D or Doppler imaging. There is no thrombus noted in the left atrial appendage. AORTIC VALVE The aortic valve is mildly calcified. The aortic valve is trileaflet. Doppler and Color Flow revealed mild aortic regurgitation. There is no significant aortic valvular stenosis. There is no aortic valvular vegetation. MITRAL VALVE The mitral valve is normal in structure and function. No vegetation on mitral valve. There is no mitral valve stenosis. Doppler and Color Flow revealed trace to mild mitral regurgitation. TRICUSPID VALVE The tricuspid valve is normal in structure and function. No vegetation noted on valve. Doppler and Color Flow revealed mild tricuspid valve regurgitation. There is no tricuspid valve stenosis. PULMONIC VALVE The pulmonary valve is normal in structure and function. Doppler and Color Flow revealed mild pulmonic valvular regurgitation. There is no pulmonic valvular stenosis. GREAT VESSELS The aortic root is normal in size. PERICARDIAL EFFUSION There is no pleural effusion. Critical Notification Critical Value: No <Conclusion> The left ventricle is normal size. Left ventricle systolic function is normal. The Ejection Fraction is 55-60%. The aortic valve is mildly calcified. The aortic valve is trileaflet. There is no significant aortic valvular stenosis. Doppler and Color Flow revealed mild aortic regurgitation. Doppler and Color Flow revealed trace to mild mitral regurgitation. Doppler and Color Flow revealed mild tricuspid valve regurgitation. Doppler and Color Flow revealed mild pulmonic valvular regurgitation. No evidence of vegetations on this study. DICTATED and SIGNED BY: HUYEN FARRAR MD DATE: 08/03/16 4880 History: Septic emboli, weakness and fever. Comparison: CT abdomen and pelvis July 30, 2016. Technique: Helical CT of the chest was performed without intravenous contrast. Exposure: One or more of the following individualized dose reduction techniques were utilized for this examination: 1. Automated exposure control 2. Adjustment of the mA and/or kV according to patient size 3. Use of iterative reconstruction technique Findings: There is respiratory symmetric. Trachea and mainstem bronchi appear patent. No mediastinal lymphadenopathy is seen. Calcified aortic atherosclerosis is noted. No pericardial thickening is identified. Both lungs demonstrate presence of multiple pulmonary nodules, some of which are round and some which are irregular. Some of the nodules demonstrate cavitation. Largest nodules in the right lower lobe and measures about 1.5 cm. No pneumothorax or pleural effusion is seen. Impression: Multiple bilateral pulmonary nodules, some of which are irregular and some which are cavitary. Possible etiologies include septic pulmonary emboli, Dominique's granulomatosis, and pulmonary metastases (including from squamous cell carcinoma, GI adenocarcinoma, cervical cancer, sarcomas, or transitional cell carcinoma ). Electronically signed by: Elvin Fitzgerald MD (07/30/2016 5:48 PM) DICTATED and SIGNED BY: ELVIN FITZGERALD MD DATE: 07/30/16 4843 Labs Labs Laboratory Tests Test 08/02/16 08:55 08/03/16 03:30 08/03/16 13:37 08/03/16 16:41 Vancomycin Level Trough 18.1 mcg/mL (10.0-20.0) Vancomycin Last Dose Date 08/02/16 Vancomycin Last Dose Time 0100 White Blood Count 7.9 x10^3/uL (4.0-11.0) Red Blood Count 2.83 x10^6/uL (3.50-5.40) Hemoglobin 7.9 g/dL (12.0-15.5) Hematocrit 24.6 % (36.0-47.0) Mean Corpuscular Volume 87 fL (79-100) Mean Corpuscular Hemoglobin 28 pg (25-35) Mean Corpuscular Hemoglobin Concent 32 g/dL (31-37) Red Cell Distribution Width 14.7 % (11.5-14.5) Platelet Count 377 x10^3/uL (140-400) Neutrophils (%) (Auto) 59 % (31-73) Lymphocytes (%) (Auto) 32 % (24-48) Monocytes (%) (Auto) 7 % (0-9) Eosinophils (%) (Auto) 2 % (0-3) Basophils (%) (Auto) 1 % (0-3) Neutrophils # (Auto) 4.6 x10^3uL (1.8-7.7) Lymphocytes # (Auto) 2.5 x10^3/uL (1.0-4.8) Monocytes # (Auto) 0.5 x10^3/uL (0.0-1.1) Eosinophils # (Auto) 0.2 x10^3/uL (0.0-0.7) Basophils # (Auto) 0.1 x10^3/uL (0.0-0.2) Sodium Level 139 mmol/L (136-145) Potassium Level 3.5 mmol/L (3.5-5.1) Chloride Level 106 mmol/L (98-107) Carbon Dioxide Level 28 mmol/L (21-32) Anion Gap 5 (6-14) Blood Urea Nitrogen 10 mg/dL (7-20) Creatinine 0.6 mg/dL (0.6-1.0) Estimated GFR (Cockcroft-Gault) 98.8 BUN/Creatinine Ratio 17 (6-20) Glucose Level 156 mg/dL (70-99) Calcium Level 8.1 mg/dL (8.5-10.1) Total Bilirubin 0.2 mg/dL (0.2-1.0) Aspartate Amino Transf (AST/SGOT) 26 U/L (15-37) Alanine Aminotransferase (ALT/SGPT) 37 U/L (14-59) Alkaline Phosphatase 59 U/L (46-116) Total Protein 6.1 g/dL (6.4-8.2) Albumin 1.6 g/dL (3.4-5.0) Albumin/Globulin Ratio 0.4 (1.0-1.7) Glucose (Fingerstick) 144 mg/dL (70-99) 133 mg/dL (70-99) Test 08/03/16 21:30 08/04/16 05:50 08/04/16 07:35 08/04/16 11:44 Glucose (Fingerstick) 242 mg/dL (70-99) 163 mg/dL (70-99) 185 mg/dL (70-99) White Blood Count 8.1 x10^3/uL (4.0-11.0) Red Blood Count 3.12 x10^6/uL (3.50-5.40) Hemoglobin 8.7 g/dL (12.0-15.5) Hematocrit 27.0 % (36.0-47.0) Mean Corpuscular Volume 86 fL (79-100) Mean Corpuscular Hemoglobin 28 pg (25-35) Mean Corpuscular Hemoglobin Concent 32 g/dL (31-37) Red Cell Distribution Width 15.2 % (11.5-14.5) Platelet Count 458 x10^3/uL (140-400) Neutrophils (%) (Auto) 61 % (31-73) Lymphocytes (%) (Auto) 29 % (24-48) Monocytes (%) (Auto) 7 % (0-9) Eosinophils (%) (Auto) 2 % (0-3) Basophils (%) (Auto) 1 % (0-3) Neutrophils # (Auto) 4.9 x10^3uL (1.8-7.7) Lymphocytes # (Auto) 2.3 x10^3/uL (1.0-4.8) Monocytes # (Auto) 0.6 x10^3/uL (0.0-1.1) Eosinophils # (Auto) 0.1 x10^3/uL (0.0-0.7) Basophils # (Auto) 0.1 x10^3/uL (0.0-0.2) Sodium Level 138 mmol/L (136-145) Potassium Level 3.7 mmol/L (3.5-5.1) Chloride Level 103 mmol/L (98-107) Carbon Dioxide Level 28 mmol/L (21-32) Anion Gap 7 (6-14) Blood Urea Nitrogen 11 mg/dL (7-20) Creatinine 0.6 mg/dL (0.6-1.0) Estimated GFR (Cockcroft-Gault) 98.8 BUN/Creatinine Ratio 18 (6-20) Glucose Level 150 mg/dL (70-99) Calcium Level 8.8 mg/dL (8.5-10.1) Total Bilirubin 0.2 mg/dL (0.2-1.0) Aspartate Amino Transf (AST/SGOT) 33 U/L (15-37) Alanine Aminotransferase (ALT/SGPT) 39 U/L (14-59) Alkaline Phosphatase 61 U/L (46-116) Total Protein 7.0 g/dL (6.4-8.2) Albumin 2.0 g/dL (3.4-5.0) Albumin/Globulin Ratio 0.4 (1.0-1.7) Test 08/04/16 16:14 08/04/16 21:12 08/05/16 06:15 08/05/16 07:09 Glucose (Fingerstick) 155 mg/dL (70-99) 222 mg/dL (70-99) 157 mg/dL (70-99) Sodium Level 138 mmol/L (136-145) Potassium Level 3.7 mmol/L (3.5-5.1) Chloride Level 102 mmol/L (98-107) Carbon Dioxide Level 29 mmol/L (21-32) Anion Gap 7 (6-14) Blood Urea Nitrogen 13 mg/dL (7-20) Creatinine 0.6 mg/dL (0.6-1.0) Estimated GFR (Cockcroft-Gault) 98.8 BUN/Creatinine Ratio 22 (6-20) Glucose Level 168 mg/dL (70-99) Calcium Level 8.8 mg/dL (8.5-10.1) Total Bilirubin 0.2 mg/dL (0.2-1.0) Aspartate Amino Transf (AST/SGOT) 30 U/L (15-37) Alanine Aminotransferase (ALT/SGPT) 37 U/L (14-59) Alkaline Phosphatase 67 U/L (46-116) Total Protein 7.0 g/dL (6.4-8.2) Albumin 2.1 g/dL (3.4-5.0) Albumin/Globulin Ratio 0.4 (1.0-1.7) Medications Medications Medications reviewed and reconciled for discharge. Brief hospital course Brief hospital course This 70 year old female who presented with acute weakness and leukocytosis was admitted. 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 pending BC GPC in chains 3/4 bottles-antibiotic changed to Ancef 08/03-Strep intermiduius MARYAM neg vegetation 08/03 Per pulm-repeat CT 3 months antibiotics at discharge-Ancef IV x 2 weeks, f/u ID 2 weeks severe malnutrition stop NS Begin PPN 08/03 Albumin 1.6 PPN dcid supplement 08/04 Alb 2.0 anemia sepsis Admit 10.7 08/05 8.7 monitor hyponatremia/hypokalemia ADmit Na 131 08/05 138 K 3.1 3.7 BUN 15 13 Cr 0.8 0.6 NS with 40K 75cc/hr on admit-change to PPN 07/31-PPN DC 07/30 KCL 20 meq x 1 admit 07/31 KCL 20 meq x 1 Procal infusing No ARF JAXSON or ATN DM II FSBS SSI BS 155-185 DVT/GI prophylaxis SCD/EVA PPI For further plan of care, please refer to the orders. For more details regarding the past history, family history, social history, surgical history and other details, please refer to History and Physical. She will be discharged to either SNU for IV antibiotics or home with HHN for IV antibiotics. Please see DC orders for final decision. Subjective weak, appetite improving. Objective alert weak Vitals Vital Signs Date Time Temp Pulse Resp B/P (MAP) Pulse Ox O2 Delivery O2 Flow Rate FiO2 08/05/16 07:00 98.3 67 18 108/76 (87) 94 Room Air 98.3 08/04/16 20:00 3.0 Physical Exam General appearance - alert, ill appearing, and in no distress Mental Status - alert, oriented to person, place, and time, affect appropriate to mood Head - normal Chest - clear to auscultation, no wheezes, rales or rhonchi, symmetric air entry Heart - S1 and S2 normal, + murmur loud Abdomen - soft, nontender, nondistended, obese BS + Neurological - no acute focal neurological deficit noted Musculoskeletal - no muscular tenderness noted Extremities - no pedal edema Skin - warm and dry Medications Medications reviewed. Allergy Allergies Coded Allergies Type Severity Reaction Last Updated Verified No Known Drug Allergies 07/19/16 No Follow up SNU Admit to Dr. Bingham HOME: f/u Wednesday next week. Disposition: Home health services, [facility] facility Comments Discharge Management - 35 minutes. For other details please refer to discharge instructions BEST BINGHAM MD 08/05/16 1010: IM DISCHARGE & PROGRESS NOTES Brief hospital course Brief hospital course d/w patient and family. Discharge to SNF for IV antibiotics. The patient was seen and examined by me. Chart reviewed and plan of care formulated. Discussed with, reviewed and agree with FRONT SIGHT ATTACHER's notes, plan of care and orders with modifications as necessary. Discharge Management - 35 minutes. JOSÉ VIEIRA APRN Aug 05, 2016 08:33 BEST BINGHAM MD Aug 05, 2016 10:10
[2016-08-05] MEDS: LISINOPRIL 40 MG TABLET. PO SCH (08:45)
[2016-08-05] MEDS: CHOLECALCIFEROL (VITAMIN D3) 1,000 UNIT TABLET PO SCH (08:45)
[2016-08-05] MEDS: PANTOPRAZOLE 40 MG TABLET.DR. PO SCH (08:45)
--- NOTE | 2016-08-05 10:09 | PDOC ---
PULMONARY PROGRESS NOTES Subjective PT WITH NO INCREASE SOA Vitals Vital Signs Date Time Temp Pulse Resp B/P (MAP) Pulse Ox O2 Delivery O2 Flow Rate FiO2 08/05/16 08:45 67 108/76 08/05/16 07:45 Room Air 08/05/16 07:00 98.3 18 94 98.3 08/04/16 20:00 3.0 ROS: No Nausea, No Chest Pain, No Abdominal Pain, No Increase Cough General: Alert HEENT: Other (nc at perrl, shallow oropharynx, nose clear, neck no lap, thyromegaly) Lungs: Crackles Cardiovascular: S1, S2 Abdomen: Soft, Non-tender Neuro Exam: Alert, Oriented Extremities: No Edema Skin: Warm Labs Laboratory Tests Test 08/03/16 13:37 08/03/16 16:41 08/03/16 21:30 08/04/16 05:50 Glucose (Fingerstick) 144 mg/dL (70-99) 133 mg/dL (70-99) 242 mg/dL (70-99) White Blood Count 8.1 x10^3/uL (4.0-11.0) Red Blood Count 3.12 x10^6/uL (3.50-5.40) Hemoglobin 8.7 g/dL (12.0-15.5) Hematocrit 27.0 % (36.0-47.0) Mean Corpuscular Volume 86 fL (79-100) Mean Corpuscular Hemoglobin 28 pg (25-35) Mean Corpuscular Hemoglobin Concent 32 g/dL (31-37) Red Cell Distribution Width 15.2 % (11.5-14.5) Platelet Count 458 x10^3/uL (140-400) Neutrophils (%) (Auto) 61 % (31-73) Lymphocytes (%) (Auto) 29 % (24-48) Monocytes (%) (Auto) 7 % (0-9) Eosinophils (%) (Auto) 2 % (0-3) Basophils (%) (Auto) 1 % (0-3) Neutrophils # (Auto) 4.9 x10^3uL (1.8-7.7) Lymphocytes # (Auto) 2.3 x10^3/uL (1.0-4.8) Monocytes # (Auto) 0.6 x10^3/uL (0.0-1.1) Eosinophils # (Auto) 0.1 x10^3/uL (0.0-0.7) Basophils # (Auto) 0.1 x10^3/uL (0.0-0.2) Sodium Level 138 mmol/L (136-145) Potassium Level 3.7 mmol/L (3.5-5.1) Chloride Level 103 mmol/L (98-107) Carbon Dioxide Level 28 mmol/L (21-32) Anion Gap 7 (6-14) Blood Urea Nitrogen 11 mg/dL (7-20) Creatinine 0.6 mg/dL (0.6-1.0) Estimated GFR (Cockcroft-Gault) 98.8 BUN/Creatinine Ratio 18 (6-20) Glucose Level 150 mg/dL (70-99) Calcium Level 8.8 mg/dL (8.5-10.1) Total Bilirubin 0.2 mg/dL (0.2-1.0) Aspartate Amino Transf (AST/SGOT) 33 U/L (15-37) Alanine Aminotransferase (ALT/SGPT) 39 U/L (14-59) Alkaline Phosphatase 61 U/L (46-116) Total Protein 7.0 g/dL (6.4-8.2) Albumin 2.0 g/dL (3.4-5.0) Albumin/Globulin Ratio 0.4 (1.0-1.7) Test 08/04/16 07:35 08/04/16 11:44 08/04/16 16:14 08/04/16 21:12 Glucose (Fingerstick) 163 mg/dL (70-99) 185 mg/dL (70-99) 155 mg/dL (70-99) 222 mg/dL (70-99) Test 08/05/16 06:15 08/05/16 07:09 Sodium Level 138 mmol/L (136-145) Potassium Level 3.7 mmol/L (3.5-5.1) Chloride Level 102 mmol/L (98-107) Carbon Dioxide Level 29 mmol/L (21-32) Anion Gap 7 (6-14) Blood Urea Nitrogen 13 mg/dL (7-20) Creatinine 0.6 mg/dL (0.6-1.0) Estimated GFR (Cockcroft-Gault) 98.8 BUN/Creatinine Ratio 22 (6-20) Glucose Level 168 mg/dL (70-99) Calcium Level 8.8 mg/dL (8.5-10.1) Total Bilirubin 0.2 mg/dL (0.2-1.0) Aspartate Amino Transf (AST/SGOT) 30 U/L (15-37) Alanine Aminotransferase (ALT/SGPT) 37 U/L (14-59) Alkaline Phosphatase 67 U/L (46-116) Total Protein 7.0 g/dL (6.4-8.2) Albumin 2.1 g/dL (3.4-5.0) Albumin/Globulin Ratio 0.4 (1.0-1.7) Glucose (Fingerstick) 157 mg/dL (70-99) Laboratory Tests Test 08/04/16 11:44 08/04/16 16:14 08/04/16 21:12 08/05/16 06:15 Glucose (Fingerstick) 185 mg/dL (70-99) 155 mg/dL (70-99) 222 mg/dL (70-99) Sodium Level 138 mmol/L (136-145) Potassium Level 3.7 mmol/L (3.5-5.1) Chloride Level 102 mmol/L (98-107) Carbon Dioxide Level 29 mmol/L (21-32) Anion Gap 7 (6-14) Blood Urea Nitrogen 13 mg/dL (7-20) Creatinine 0.6 mg/dL (0.6-1.0) Estimated GFR (Cockcroft-Gault) 98.8 BUN/Creatinine Ratio 22 (6-20) Glucose Level 168 mg/dL (70-99) Calcium Level 8.8 mg/dL (8.5-10.1) Total Bilirubin 0.2 mg/dL (0.2-1.0) Aspartate Amino Transf (AST/SGOT) 30 U/L (15-37) Alanine Aminotransferase (ALT/SGPT) 37 U/L (14-59) Alkaline Phosphatase 67 U/L (46-116) Total Protein 7.0 g/dL (6.4-8.2) Albumin 2.1 g/dL (3.4-5.0) Albumin/Globulin Ratio 0.4 (1.0-1.7) Test 08/05/16 07:09 Glucose (Fingerstick) 157 mg/dL (70-99) Medications Active Scripts Medications Dose Route/Sig Max Daily Dose Days Date Category Metronidazole 70 Gm Gel.w.appl 70 Gm VG 07/31/16 Reported Vitamin D3 (Cholecalciferol (Vitamin D3)) 1,000 Unit Tablet 1,000 Unit PO 07/31/16 Reported Tricor (Fenofibrate Nanocrystallized) 145 Mg Tablet 145 Mg PO DAILY 07/31/16 Reported Trandolapril 4 Mg Tablet 4 Mg PO 07/31/16 Reported Simvastatin 20 Mg Tablet 20 Mg PO HS 07/31/16 Reported Protonix (Pantoprazole Sodium) 40 Mg Tablet.dr 40 Mg PO DAILY 07/31/16 Reported Penicillin V Potassium 500 Mg Tablet 1 Tab PO QID 07/19/16 Rx Naprosyn (Naproxen) 500 Mg Tablet 1 Tab PO BID 07/19/16 Rx Hydrocodone-Apap 5-325 (Hydrocodone Bit/Acetaminophen) 1 Each Tablet 1-2 Tab PO PRN Q6HRS PRN 5 07/19/[address] reviewed, Multiple bilateral pulmonary nodules, some of which are irregular and some which are cavitary. Impression . 1. Bilateral pulmonary nodules suspect infectious in etilolgy 2. Minimal history of tobacco use. 3. Recent dental extraction leading to pain and leukocytosis despite on penicillin V. 4. Underlying obesity. 5. Underlying diabetes. 6. Severe protein-calorie malnutrition with albumin of 1.6. 7. [place] Plan . ok to d/c follow up in office with repeat CT 2 months antibx per id cpap qhs ARIANNE ANDREWS MD Aug 05, 2016 10:09
--- NOTE | 2016-08-05 10:40 | PDOC ---
Infectious Disease Note Subjective Subjective feeling good ROS ROS GEN: Denies fevers, chills, sweats HEENT: Denies blurred vision, sore throat CV: Denies chest pain RESP: Denies shortness of air, cough GI: Denies n/v/d NEURO: Denies confusion, dizziness MSK: Denies weakness, joint pain/swelling Vital Sign Vital Signs Vital Signs Date Time Temp Pulse Resp B/P (MAP) Pulse Ox O2 Delivery O2 Flow Rate FiO2 08/05/16 08:45 67 108/76 08/05/16 07:45 Room Air 08/05/16 07:00 98.3 18 94 98.3 08/04/16 20:00 3.0 Physical Exam PHYSICAL EXAM GENERAL: NAD, Alert HEENT: PERRL, OC/OP NECK: Supple, no JVD, no LN LUNGS: Clear HEART: S1S2, no gallop, no murmur ABD: Soft, NT, no organomegaly, no rebound EXT: No edema, no cyanosis CONSULTING MARINE ENGINEER: Alert, oriented x 3, no focal neurologic deficit SKIN: No rash IV: ok Labs Lab Laboratory Tests Test 08/04/16 11:44 08/04/16 16:14 08/04/16 21:12 08/05/16 06:15 Glucose (Fingerstick) 185 mg/dL (70-99) 155 mg/dL (70-99) 222 mg/dL (70-99) Sodium Level 138 mmol/L (136-145) Potassium Level 3.7 mmol/L (3.5-5.1) Chloride Level 102 mmol/L (98-107) Carbon Dioxide Level 29 mmol/L (21-32) Anion Gap 7 (6-14) Blood Urea Nitrogen 13 mg/dL (7-20) Creatinine 0.6 mg/dL (0.6-1.0) Estimated GFR (Cockcroft-Gault) 98.8 BUN/Creatinine Ratio 22 (6-20) Glucose Level 168 mg/dL (70-99) Calcium Level 8.8 mg/dL (8.5-10.1) Total Bilirubin 0.2 mg/dL (0.2-1.0) Aspartate Amino Transf (AST/SGOT) 30 U/L (15-37) Alanine Aminotransferase (ALT/SGPT) 37 U/L (14-59) Alkaline Phosphatase 67 U/L (46-116) Total Protein 7.0 g/dL (6.4-8.2) Albumin 2.1 g/dL (3.4-5.0) Albumin/Globulin Ratio 0.4 (1.0-1.7) Test 08/05/16 07:09 Glucose (Fingerstick) 157 mg/dL (70-99) Micro BLOOD CULTURE PRL Preliminary Preliminary report BLD CULT RESULT 1 Preliminary Comment Streptococcus constellatus Recovered from anaerobic bottle only. UNABLE TO GROW FOR SENSITIVITY Performed at: [address] [id number] [employer]: Mel Roth MD, Phone: [phone] Objective Assessment GPC in chains bacteremia, POA strep intermidius, MARYAM Neg Fever Leukocytosis- improved Pulmonary nodules Recent dental extractions - PCN V 07/19 for 10 days Severe Protein malnutrition Plan Plan of Care cefazolin d/c soon on iv cefazolin at least 2 wks, f/u with us in 2 wks wkly cbc, bun/cr , sed rate f/u with us in 2 wks TALYA PEREA MD Aug 05, 2016 10:40
[2016-08-05 11:00] VITALS: BP 137/68
== END 2016-08-05 16:38 | DRG 871 ==
LOC: ER 12:19 → 6 SOUTH 13:00 → 1 WEST ICU 15:48 → 5 SOUTH 08-01 14:19
PROVIDERS: ADMIT Internal Medicine; ATTEND Internal Medicine
DX: A41.9 Sepsis, unspecified organism (principal); E43 Unspecified severe protein-calorie malnutrition; I26.90 Septic pulmonary embolism without acute cor pulmonale; E87.1 Hypo-osmolality and hyponatremia; E87.6 Hypokalemia; E78.2 Mixed hyperlipidemia; E11.22 Type 2 diabetes mellitus with diabetic chronic kidney disease; I12.9 Hypertensive chronic kidney disease with stage 1 through stage 4 chronic kidney disease, or unspecified chronic kidney disease; D64.9 Anemia, unspecified; I27.2 Other secondary pulmonary hypertension; I70.0 Atherosclerosis of aorta; K02.9 Dental caries, unspecified; K21.9 Gastro-esophageal reflux disease without esophagitis; M15.9 Polyosteoarthritis, unspecified; M81.0 Age-related osteoporosis without current pathological fracture; N18.2 Chronic kidney disease, stage 2 (mild); E66.9 Obesity, unspecified; I35.1 Nonrheumatic aortic (valve) insufficiency; K57.90 Diverticulosis of intestine, part unspecified, without perforation or abscess without bleeding; J32.0 Chronic maxillary sinusitis; K04.7 Periapical abscess without sinus; R62.7 Adult failure to thrive; Z82.49 Family history of ischemic heart disease and other diseases of the circulatory system; Z68.31 Body mass index [BMI] 31.0-31.9, adult; Z83.3 Family history of diabetes mellitus; Z86.010 Personal history of colon polyps; Z87.891 Personal history of nicotine dependence
CPT/HCPCS: 36415; 36600; 70450; 70486; 71010; 71250; 74177; 80048; 80053; 80202; 81001; 82805; 82962; 83605; 83735; 84132; 85007; 85027; 85651; 86021; 86141; 86850; 86900; 86901; 87040; 87205; 87641; 93005; 93306; 93312; 93325; 93970; 94660; 96361; 96374; 96375; J0690; J1720; J2543; J2704; J2997; J3370; J3480; J7030; J7040; J7042; J7050; J7120; Q9967; 99285-25

== ENCOUNTER → 2016-08-07 | Outpatient (CLI) | payer MEDICARE, OTHER ==
[2016-08-05 11:00] VITALS: BP 137/68
[~2016-08-07] MED LIST changes: +ACET325T9 PO; +CHOL10003 PO; +FENO145T PO; +METR70GE2 VG; +PANT40TA3 PO; +SIMV20TA3 PO; +TRAN4TAB9 PO
[2016-08-07 12:35] LABS: CALCIUM 9.2 mg/dL (8.5-10.1); CREATININE 0.8 mg/dL (0.6-1.0); GFR 70.9; POTASSIUM 3.6 mmol/L (3.5-5.1)
== END | disposition home or self-care (01) ==
LOC: SPEC 12:09
PROVIDERS: ATTEND Internal Medicine
DX: E11.44 Type 2 diabetes mellitus with diabetic amyotrophy (principal); E78.5 Hyperlipidemia, unspecified; E46 Unspecified protein-calorie malnutrition
CPT/HCPCS: 36415; 80048; 83735

== ENCOUNTER → 2016-09-30 | Outpatient (CLI) | payer MEDICARE, OTHER ==
--- NOTE | 2016-09-30 14:46 | RAD ---
DATE: 09/30/2016 EXAM: DIGITAL SCREEN BILAT W/CAD HISTORY: Routine screening COMPARISON: 09/12/2012, 09/30/2015 This study was interpreted with the benefit of Computerized Aided Detection (CAD). The breast parenchyma shows scattered fibroglandular densities. Breast parenchyma level B. FINDINGS: No new or enlarging breast densities are seen. Scattered benign type calcifications are present. No suspicious microcalcifications have developed. IMPRESSION: Stable mammograms without evidence of malignancy. BI-RADS CATEGORY: 2 BENIGN FINDING(S) RECOMMENDED FOLLOW-UP: 12M 12 MONTH FOLLOW-UP PQRS compliance statement: Patient information was entered into a reminder system with a target due date for the next mammogram. Mammography is a sensitive method for finding small breast cancers, but it does not detect them all and is not a substitute for careful clinical examination. A negative mammogram does not negate a clinically suspicious finding and should not result in delay in biopsying a clinically suspicious abnormality. "Our facility is accredited by the [employer] Mammography Program."
== END | disposition home or self-care (01) ==
LOC: MAMMO 13:53
PROVIDERS: ATTEND Internal Medicine
DX: Z12.31 Encounter for screening mammogram for malignant neoplasm of breast (principal)
CPT/HCPCS: G0202; 77067

== ENCOUNTER → 2017-06-25 | Outpatient (CLI) | payer MEDICARE, OTHER | END | disposition home or self-care (01) | LOC: ECHO 13:44 | DX: I12.9 Hypertensive chronic kidney disease with stage 1 through stage 4 chronic kidney disease, or unspecified chronic kidney disease (principal); E11.22 Type 2 diabetes mellitus with diabetic chronic kidney disease; N18.2 Chronic kidney disease, stage 2 (mild); I35.1 Nonrheumatic aortic (valve) insufficiency; K21.9 Gastro-esophageal reflux disease without esophagitis; E78.2 Mixed hyperlipidemia | CPT/HCPCS: 93306 ==

== ENCOUNTER → 2017-10-29 | Outpatient (CLI) | payer MEDICARE, OTHER ==
[~2017-10-29] MED LIST changes: +NAPR-683 PO; -NAPR500T PO; +TRAN4TAB22 PO; -TRAN4TAB9 PO
--- NOTE | 2017-10-29 13:43 | RAD ---
DATE: 10/29/2017 EXAM: MAMMO BRYON SCREENING BILATERAL HISTORY: Routine screening COMPARISON: 09/27/2014 This study was interpreted with the benefit of Computerized Aided Detection (CAD). Breast Density: SCATTERED The breast parenchyma shows scattered fibroglandular densities. Breast parenchyma level B. FINDINGS: 2-D and 3-D tomosynthesis imaging was performed in CC and MLO projections. The fibroglandular tissues are somewhat nodular in character. A small smooth nodule in the anterior aspect of the right breast at approximately the 12:00 location appears unchanged. No spiculated mass or architectural distortion is seen. Benign type calcifications are present. No suspicious microcalcifications have developed. IMPRESSION: There is no mammographic evidence of malignancy in either breast. BI-RADS CATEGORY: 2 BENIGN FINDING(S) RECOMMENDED FOLLOW-UP: 12M 12 MONTH FOLLOW-UP PQRS compliance statement: Patient information was entered into a reminder system with a target due date for the next mammogram. Mammography is a sensitive method for finding small breast cancers, but it does not detect them all and is not a substitute for careful clinical examination. A negative mammogram does not negate a clinically suspicious finding and should not result in delay in biopsying a clinically suspicious abnormality. "Our facility is accredited by the [employer] Mammography Program."
== END | disposition home or self-care (01) ==
LOC: MAMMO 10:47
PROVIDERS: ATTEND Internal Medicine
DX: Z12.31 Encounter for screening mammogram for malignant neoplasm of breast (principal); I12.9 Hypertensive chronic kidney disease with stage 1 through stage 4 chronic kidney disease, or unspecified chronic kidney disease; E11.22 Type 2 diabetes mellitus with diabetic chronic kidney disease; N18.2 Chronic kidney disease, stage 2 (mild); E78.2 Mixed hyperlipidemia; K21.9 Gastro-esophageal reflux disease without esophagitis; Z87.891 Personal history of nicotine dependence; Z86.010 Personal history of colon polyps; Z82.49 Family history of ischemic heart disease and other diseases of the circulatory system; Z83.3 Family history of diabetes mellitus
CPT/HCPCS: 77063; 77067

== ENCOUNTER → 2018-05-27 | Outpatient (CLI) | payer MEDICARE, OTHER ==
[~2018-05-27] MED LIST changes: -HYDR-2758 PO; +HYDR-2761 PO
--- NOTE | 2018-05-27 17:24 | KCIC ---
Chest CT without contrast Clinical indications: Multiple pulmonary lung nodules. Follow-up study. COMPARISON: July 30, 2016. TECHNIQUE: Noncontrast helical CT scanning of the chest was performed. Without IV contrast, the sensitivity to detect organ pathology is decreased. PQRS compliance Statement One or more of the following individualized dose reduction techniques were utilized for this study: 1. Automated exposure control 2. Adjustment of the mA and/or kV according to patient size 3. Use of iterative reconstruction technique FINDINGS: No enlarged thoracic lymphadenopathy is evident. Heart size is normal and no pericardial effusion is seen. There is calcified atheromatous disease of the coronary arteries. No focal aneurysmal dilatation of the thoracic aorta is seen. There is wall thickening of the esophagus which may be seen with reflux esophagitis. No enlarged thoracic lymphadenopathy is evident. Calcified lymph nodes are seen due to old granulomatous disease. No adrenal mass is seen. Multiple calcified granulomas are seen bilaterally consistent with a benign finding. No noncalcified lung nodules are evident. The previously seen nodular lung infiltrates some of which were cavitary are not evident today. No new lung infiltrate is seen. No pleural effusion or pneumothorax is evident. The proximal bronchial tree is patent. No lytic process is evident. IMPRESSION: Benign bilateral calcified granulomas. Previously seen nodular lung infiltrates some of which were cavitary in 2017 have resolved. No acute lung infiltrate is seen. Calcified atheromatous disease of the coronary arteries. Wall thickening of the distal esophagus which may be seen seen with reflux esophagitis. Electronically signed by: Rafael Bonilla MD (05/27/2018 5:20 PM) [facility]
== END | disposition home or self-care (01) ==
LOC: KCIC CT 10:32
PROVIDERS: ATTEND Internal Medicine Critical Care Medicine
DX: J84.10 Pulmonary fibrosis, unspecified (principal); I25.10 Atherosclerotic heart disease of native coronary artery without angina pectoris; I10 Essential (primary) hypertension
CPT/HCPCS: 71250

== ENCOUNTER → 2018-06-14 | Outpatient (CLI) | payer MEDICARE, OTHER ==
--- NOTE | 2018-06-16 18:12 | SLEEP ---
DATE OF STUDY: 06/14/2018 SLEEP STUDY ATTENDING PHYSICIAN: Dr. Best Bingham. The patient is 72 years old who weighs 191 pounds with a BMI of 36. The patient's Manvel score was 12. The patient underwent split night study performed at [facility]. During the night study, the patient spent 418 minutes in bed and slept for 374 minutes with a sleep efficiency of 89%. Sleep latency was 5 minutes with a REM latency of 67 minutes. Overall, sleep architecture showed normal stage I and stage 2 sleep, increased slow wave sleep and normal REM sleep. During the initial diagnostic portion of the study, the patient slept for 90 minutes. During that time, there were no obstructive, mixed or central apneas. There were 39 hypopneas. The patient's apnea-hypopnea index was 26 per hour. Supine sleep was not observed. REM index was 73 per hour. EKG monitoring revealed a paced rhythm. Average heart rate was 51 beats per minute. PLMS were seen at index of 30 per hour and 3 per hour caused EEG arousals. Nocturnal oximetry study revealed an average oxygen saturation of 92% with the lowest of 83%. 21% of time oxygen saturation remained between 80% and 89%. The patient met the criteria for CPAP initiation. It was started at 5 cm water and titrated up to 12 cm water. At the final pressure, the patient slept for 150 minutes. The patient had supine as well as REM sleep. The patient's AHI was reduced to 1 per hour and oxygen saturation remained above 91%. The patient used a small size full face mask. IMPRESSION: 1. Moderate sleep apnea-hypopnea syndrome with worsening during rapid eye movement sleep. Total apnea-hypopnea index 26 per hour with a rapid eye movement-apnea hypopnea index of 73 per hour. 2. Moderate periodic limb movements in sleep. 3. Nocturnal hypoxia is secondary to obstructive sleep apnea, but resolved with continuous positive airway pressure. RECOMMENDATIONS: 1. CPAP at 12 cm water completely eliminated the patient's sleep apnea and should be used on a nightly basis. 2. Follow up in 4-6 weeks to assess compliance with CPAP and to document clinical improvement. 3. Weight loss is strongly advised. 4. Avoid [employer] depressants. 5. Caution regarding driving until symptoms of sleep apnea resolve with the use of CPAP. 6. The patient should also be further evaluated for symptoms of restless legs during the day. 7. The patient uses small size full face mask. SCOTTIE VILLEGAS MD DR: MARÍA/marcela JOB#: [id number] / [id number] BEST Scott MD
== END | disposition home or self-care (01) ==
LOC: SLPLAB 18:40
PROVIDERS: ATTEND Internal Medicine Critical Care Medicine
DX: G47.33 Obstructive sleep apnea (adult) (pediatric) (principal); R09.02 Hypoxemia
CPT/HCPCS: 95810

== ENCOUNTER → 2018-07-22 | Outpatient (CLI) | payer MEDICARE, OTHER ==
--- NOTE | 2018-07-22 13:49 | CARD ---
MR#: [id number] Date of Study: 07/22/2018 Ordering Physician: HODAN DYSON, Referring Physician: HODAN DYSON, Tech: Jeannette Colunga TINO APPROVED REPORT EXAM: Two-dimensional and M-mode echocardiogram with Doppler and color Doppler. Other Information Quality : AverageHR: 60bpm Rhythm : NSR INDICATION Hypertension/HCVD 2D DIMENSIONS RVDd3.8 (2.9-3.5cm)Left Atrium(2D)3.7 (1.6-4.0cm) IVSd1.1 (0.7-1.1cm)Aortic Root(2D)2.9 (2.0-3.7cm) LVDd5.3 (3.9-5.9cm)LVOT Diameter1.9 (1.8-2.4cm) PWd1.1 (0.7-1.1cm)LVDs3.2 (2.5-4.0cm) FS (%) 38.5 %SV91.6 ml LVEF(%)68.4 (>50%) M-Mode DIMENSIONS Left Atrium(MM)4.34 (2.5-4.0cm)Aortic Root3.47 (2.2-3.7cm) Aortic Valve AoV Peak Wojciech.178.8cm/sAoV VTI38.8cm AO Peak GR.12.8mmHgLVOT Peak Wojciech.126.2cm/s AO Mean GR.7mmHgAVA (VMAX)2.10cm2 MARINE (VTI)2.73ce4UD P 1/2 Ntcm765wq Mitral Valve MV E Dzsfiqrt13.0cm/sMV DECEL TACB770nw MV A Hwblrqli99.0cm/sE/A Ratio1.4 MV A Uovamoup588ww Pulmonary Valve PV Peak Aiyovlhv548.5cm/sPV Peak Grad.22mmHg Tricuspid Valve TR P. Uhatnojf046fp/sRAP QLRXDIHW4ukBc TR Peak Gr.93hvBpGEPW12jnKa LEFT VENTRICLE The left ventricle is normal size. There is borderline to mild concentric left ventricular hypertroph y. The left ventricular systolic function is normal. The Ejection Fraction is 65-70%. There is normal LV segmental wall motion. Transmitral Doppler flow pattern is Grade II-pseudonormal filling dynamics . RIGHT VENTRICLE The right ventricle is normal size. There is normal right ventricular wall thickness. The right ventr icular systolic function is normal. ATRIA The left atrium size is normal. The right atrium size is normal. The interatrial septum is intact wit h no evidence for an atrial septal defect or patent foramen ovale as noted on 2-D or Doppler imaging. AORTIC VALVE The aortic valve is normal in structure and function. The aortic valve is trileaflet. Doppler and Col or Flow revealed mild aortic regurgitation. There is no significant aortic valvular stenosis. MITRAL VALVE The mitral valve is normal in structure and function. There is no evidence of mitral valve prolapse. There is no mitral valve stenosis. Doppler and Color-flow revealed trace mitral regurgitation. TRICUSPID VALVE The tricuspid valve is normal in structure and function. Doppler and Color Flow revealed trace tricus pid regurgitation. There is moderate pulmonary hypertension. The PA pressure was estimated at 51 mmHg . There is no tricuspid valve prolapse or vegetation. There is no tricuspid valve stenosis. PULMONIC VALVE The pulmonary valve is normal in structure and function. Doppler and Color Flow revealed trace to mil d pulmonic valvular regurgitation. Increased PV velocity but valve opens well. GREAT VESSELS The aortic root is normal in size. The ascending aorta is normal in size. The IVC is normal in size a nd collapses >50% with inspiration. PERICARDIAL EFFUSION There is no evidence of significant pericardial effusion. Critical Notification Critical Value: No <Conclusion> The left ventricular systolic function is normal. The Ejection Fraction is 65-70%. There is normal LV segmental wall motion. Transmitral Doppler flow pattern is Grade II-pseudonormal filling dynamics. Mild aortic regurgitation. Trace mitral regurgitation. Trace tricuspid regurgitation. The PA pressure was estimated at 51 mmHg. There is no evidence of significant pericardial effusion. Signed by : Yunier Martinez, Electronically Approved : 07/22/2018 13:49:17
== END | disposition home or self-care (01) ==
LOC: ECHO 12:40
PROVIDERS: ATTEND Internal Medicine Cardiovascular Disease
DX: I08.8 Other rheumatic multiple valve diseases (principal); I27.20 Pulmonary hypertension, unspecified; I11.9 Hypertensive heart disease without heart failure
CPT/HCPCS: 93306

== ENCOUNTER → 2018-10-31 | Outpatient (CLI) | payer MEDICARE, OTHER ==
[~2018-10-31] MED LIST changes: -PANT40TA3 PO; +PANT40TA77 PO
--- NOTE | 2018-11-01 16:35 | RAD ---
DATE: 10/31/2018 3:14 PM EXAM: MAMMO BRYON SCREENING BILATERAL HISTORY: routine screening evaluation. COMPARISON: 09/30/2016, 10/29/2017, 09/30/2015 Bilateral CC and MLO views of the breasts were performed. Bilateral breast tomosynthesis was performed in CC and MLO projections. This study was interpreted with the benefit of Computerized Aided Detection (CAD). FINDINGS: Breast Density: SCATTERED The breast parenchyma shows scattered fibroglandular densities. Breast parenchyma level B Benign calcifications are present. The parenchymal pattern appears stable. No suspicious masses, microcalcifications or architectural distortion is present to suggest malignancy in either breast. The visualized axillae are unremarkable. IMPRESSION: No mammographic evidence of malignancy. BI-RADS CATEGORY: 2 BENIGN FINDING(S) RECOMMENDED FOLLOW-UP: 12M 12 MONTH FOLLOW-UP Annual screening mammography is recommended, unless clinically indicated sooner based on symptoms or change in physical exam. PQRS compliance statement: Patient information was entered into a reminder system with a target due date for the next mammogram. Mammography is a sensitive method for finding small breast cancers, but it does not detect them all and is not a substitute for careful clinical examination. A negative mammogram does not negate a clinically suspicious finding and should not result in delay in biopsying a clinically suspicious abnormality. "Our facility is accredited by the [employer] Mammography Program."
== END | disposition home or self-care (01) ==
LOC: MAMMO 15:06
PROVIDERS: ATTEND Internal Medicine
DX: Z12.31 Encounter for screening mammogram for malignant neoplasm of breast (principal); N64.89 Other specified disorders of breast
CPT/HCPCS: 77063; 77067

== ENCOUNTER → 2019-03-27 | Outpatient (CLI) | payer MEDICARE, OTHER ==
[~2019-03-27] MED LIST changes: +SIMV20TA18 PO; -SIMV20TA3 PO
--- NOTE | 2019-03-27 16:41 | KCIC ---
Bone mineral density study dated 03/27/2019. Indication: Estrogen deficiency. Postmenopausal. Findings: Lower lumbar spine: BMD (g/cm2): Total L1-L4.......... 0.930. . T-Score: Total L1-L4.................... -1.1. Z-Score: Total L1-L4 ................... 1.3. Left Hip: BMD (g/cm2): Total .......... 0.857. . T-Score: Total .................... -0.7. Z-Score: Total ................... 1.0. World Health Organization criteria for BMD interpretation classify patients as Normal (T-score at or above -1.0), Osteopenic (T-score between -1.0 and -2.5), or Osteoporotic (T-score at or below -2.5). Impression: 1. Bone mineral density values of the lower lumbar spine correlate with osteopenia. 2. The density values of the left femur are within the range of normal. Electronically signed by: Elvin Walsh MD (03/27/2019 4:39 PM) [facility]
== END | disposition home or self-care (01) ==
LOC: KCIC DEXA 10:28
PROVIDERS: ATTEND Internal Medicine
DX: Z78.0 Asymptomatic menopausal state (principal)
CPT/HCPCS: 77080

== ENCOUNTER → 2019-07-28 | Outpatient (CLI) | payer MEDICARE, OTHER ==
--- NOTE | 2019-07-28 10:42 | CARD ---
MR#: [id number] Date of Study: 07/28/2019 Ordering Physician: HODAN DYSON, Referring Physician: HODAN DYSON, Tech: Dolores Read [facility] APPROVED REPORT EXAM: Two-dimensional and M-mode echocardiogram with Doppler and color Doppler. Other Information Quality : Good INDICATION Aortic Valve Disorder 2D DIMENSIONS RVDd3.6 (2.9-3.5cm)Left Atrium(2D)3.8 (1.6-4.0cm) IVSd1.1 (0.7-1.1cm)Aortic Root(2D)2.7 (2.0-3.7cm) LVDd5.9 (3.9-5.9cm)LVOT Diameter2.0 (1.8-2.4cm) PWd1.1 (0.7-1.1cm)LVDs4.3 (2.5-4.0cm) FS (%) 30.0 %LVEF(%)60.0 (>50%) Aortic Valve AoV Peak Wojciech.214.0cm/sAoV VTI36.0cm AO Peak GR.18.0mmHgAO Mean GR.8mmHg MARINE (VMAX)2.11za9EZC (VTI)3.20cm2 Pulmonary Valve PV Peak Oykiqhoo748.0cm/sPV Peak Grad.28mmHg Tricuspid Valve TR P. Ehuyzglv529dp/sRAP PGZTQENQ6gqZx TR Peak Gr.84ntRxLPCD99miAt LEFT VENTRICLE The left ventricle is normal size. There is normal left ventricular wall thickness. The left ventricu lar systolic function is normal and the ejection fraction is within normal range. The Ejection Fracti on is 55-60%. There is normal LV segmental wall motion. Transmitral Doppler flow pattern is Grade I-a bnormal relaxation pattern. RIGHT VENTRICLE The right ventricle is normal size. The right ventricular systolic function is normal. ATRIA The left atrium size is normal. The right atrium size is normal. The interatrial septum is intact wit h no evidence for an atrial septal defect or patent foramen ovale as noted on 2-D or Doppler imaging. AORTIC VALVE The aortic valve is mildly thickened but opens well. Doppler and Color Flow revealed moderate aortic regurgitation. There is no significant aortic valvular stenosis. MITRAL VALVE The mitral valve is normal in structure and function. There is no evidence of mitral valve prolapse. There is no mitral valve stenosis. Doppler and Color-flow revealed mild mitral regurgitation. TRICUSPID VALVE The tricuspid valve is normal in structure and function. Doppler and Color Flow revealed trace tricus pid regurgitation. The PA pressure was estimated at 43 mmHg. There is no tricuspid valve stenosis. PULMONIC VALVE The pulmonic valve is not well visualized. Doppler and Color Flow revealed mild pulmonic valvular reg urgitation. Doppler interrogation revealved mild pulmonic stenosis. GREAT VESSELS The aortic root is normal in size. The ascending aorta is normal in size. The IVC is normal in size a nd collapses >50% with inspiration. PERICARDIAL EFFUSION There is no evidence of significant pericardial effusion. Critical Notification Critical Value: No <Conclusion> The left ventricle is normal size. The left ventricular systolic function is normal and the ejection fraction is within normal range. The Ejection Fraction is 55-60%. There is normal left ventricular wall thickness. Doppler and Color Flow revealed moderate aortic regurgitation. There is no significant aortic valvular stenosis. Doppler and Color-flow revealed mild mitral regurgitation. Doppler and Color Flow revealed trace tricuspid regurgitation. The PA pressure was estimated at 43 mmHg. Signed by : Juan Carolina MD Electronically Approved : 07/28/2019 10:41:50
== END | disposition home or self-care (01) ==
LOC: ECHO 08:45
PROVIDERS: ATTEND Internal Medicine Cardiovascular Disease
DX: I08.8 Other rheumatic multiple valve diseases (principal)
CPT/HCPCS: 93306

== ENCOUNTER → 2019-11-02 | Outpatient (CLI) | payer MEDICARE, OTHER ==
--- NOTE | 2019-11-02 17:01 | RAD ---
DATE: 11/02/2019 12:38 PM EXAM: MAMMO BRYON SCREENING BILATERAL HISTORY: Screening COMPARISON: 10/31/2018, 10/29/2017 Bilateral CC and MLO views of the breasts were performed. Bilateral breast tomosynthesis was performed in CC and MLO projections. This study was interpreted with the benefit of Computerized Aided Detection (CAD). FINDINGS: Breast Density: SCATTERED The breast parenchyma shows scattered fibroglandular densities. Breast parenchyma level B Right mammogram is negative. Spiculated 9 mm mass in the lateral periareolar left breast at the approximate 3:00 position 2 cm from the nipple needs additional imaging with targeted left breast ultrasound. It is best seen on CC tomographic image 14 of 48 and less conspicuously on image 21 of 54 on the MLO tomographic image series. . IMPRESSION: Left breast mass, findings for which additional imaging is advised. BI-RADS CATEGORY: 0 INCOMPLETE: NEEDS ADDITIONAL IMAGING EVALUATION AND/OR PRIOR MAMMOGRAMS FOR COMPARISON. RECOMMENDED FOLLOW-UP: ADD ADDITIONAL IMAGING The patient will be contacted to return for additional imaging and a supplemental report will follow. PQRS compliance statement: Patient information was entered into a reminder system with a target due date for the next mammogram. Mammography is a sensitive method for finding small breast cancers, but it does not detect them all and is not a substitute for careful clinical examination. A negative mammogram does not negate a clinically suspicious finding and should not result in delay in biopsying a clinically suspicious abnormality. "Our facility is accredited by the [employer] Mammography Program."
== END | disposition home or self-care (01) ==
LOC: MAMMO 12:27
PROVIDERS: ATTEND Internal Medicine
DX: Z12.31 Encounter for screening mammogram for malignant neoplasm of breast (principal); N64.89 Other specified disorders of breast
CPT/HCPCS: 77063; 77067

== ENCOUNTER → 2019-11-08 | Outpatient (CLI) | payer MEDICARE, OTHER ==
--- NOTE | 2019-11-09 17:06 | RAD ---
Examination: BREAST LEFT History: ABNORMAL MAMMOGRAM CALLBACK / Comparison/Correlation: 11/02/2019 screening mammographic exam Findings: Limited ultrasound imaging of the left breast 3:00 region 2 cm from the nipple demonstrates a hypoechoic mass measuring 0.5 cm x 0.7 cm x 0.3 cm tall. Lateral to this mass, there is region of distortion. Benign-appearing left axillary lymph nodes are also visualized. Impression: BI-RADS Category 4-suspicious for malignancy. Ultrasound-guided biopsy of the mass and associated distortion is recommended. Patient was informed of the need for biopsy at the time of her visit. The referring physician was informed on 11/09/2019 5:03 PM. Electronically signed by: Yariel Duncan MD (11/09/2019 5:03 PM) [facility]
== END | disposition home or self-care (01) ==
LOC: US 14:06
PROVIDERS: ATTEND Internal Medicine
DX: R92.8 Other abnormal and inconclusive findings on diagnostic imaging of breast (principal); N63.21 Unspecified lump in the left breast, upper outer quadrant
CPT/HCPCS: 76641

== ENCOUNTER → 2019-11-21 | Outpatient (CLI) | payer MEDICARE, OTHER ==
--- NOTE | 2019-11-21 17:44 | RAD ---
Examination: US GUID NDL PLACE/ASPI/BX, DIGITAL DIAGNOSTIC LT History: Reason: Left Breast Mass; Left Breast Biopsy / Spl. Instructions: / History: Comparison/Correlation: None Findings: Risks, benefits, and alternatives regarding ultrasound-guided left breast biopsy were discussed with the patient and informed consent was obtained. Cleansing with Betadine at the anticipated site of needle placement was performed. Sterile draping, sterile gel, and sterile probe cover is were utilized. Approximately 5 cc of 1 percent lidocaine was administered subcutaneously and along the expected course of the needle tracks. Scalpel incision was made for inferior approach. Introducer was placed. 14-gauge core biopsy needle was placed into the mass and region of distortion. 8 passes were made. Samples were placed in formalin jar. Biopsy clip marker was then placed under ultrasound guidance. Patient with extrinsic bleeding during the exam with a small hematoma at the biopsy site. CC and mediolateral views of the left breast were obtained. Biopsy clip marker is present approximately 2.6 cm from the nipple. Relatively high density of the left subareolar region corresponding to edema and hemorrhage is evident. Scattered fibroglandular densities are present. Impression: Successful core biopsy of the left breast mass and surrounding region of distortion. Patient tolerated the procedure well with mild bleeding and small hematoma complications. These were controlled by time the patient had left the department. Electronically signed by: Yariel Duncan MD (11/21/2019 5:41 PM) [id number]
--- NOTE | 2019-11-23 09:08 | PATHOLOGY ---
[facility] Accession Number: [id number] . 01 Material submitted: . breast - LEFT BREAST TISSUE 3:00 2CMFN. Modifiers: left, 3:00 . 01 Clinical history: . ABNORMAL MAMMOGRAM LEFT, LEFT BREAST MASS . 02 Diagnosis: Breast tissue, left breast mass 3:00, needle biopsy: - Small fragments of cyst. - Segment of predominantly fatty breast tissue showing recent hemorrhage. . (JPM:mml; 11/22/2019) [facility] 11/22/2019 1612 Local . 02 Comment: Sections of the left breast mass at 3:00 needle biopsy reveal several segments of breast tissue. The largest consists of predominantly fatty breast tissue showing recent hemorrhage. There are small fragments of benign cysts. These fragments are comprised of a benign epithelial lining with attached small portions of stroma. There are focal foamy histiocytes present. The last biopsy segment consists of breast tissue in which there are a few scattered small ducts within a fibrous breast stroma. There is no evidence of malignancy. I am not certain whether or not the biopsy findings are appeals representative of the lesion. Correlate with mammographic findings. . (JPM:mml; 11/22/2019) . 02 Electronically signed: . Lionel Glass MD, Pathologist NPI- [id number] . 01 Gross description: . The specimen is received in formalin, labeled "Sena Flores, left breast 3:00 2 cm from nipple". Received are two needle cores of fibrofatty tissue measuring 1.2 x 0.4 x 0.2 cm in aggregate dimensions. The specimen is submitted entirely in cassettes A1 and A2. The cold ischemic time is 3 minutes. The total formalin fixation time is 11 hours and 54 minutes. (CAA; 11/21/2019) [facility] 11/21/2019 1536 Local . 02 Pathologist provided ICD-10: N60.02 . 02 CPT . 804895 Specimen Comment: A courtesy copy of this report has been sent to [phone], [phone] Specimen Comment: [id number], Specimen Comment: Report sent to ,DR HULL / DR ARROYO Performed at: 01 [facility] [address], [place] [id number] MD Malcolm Rodriguez MD Phone: [phone] Performed at: 02 [facility] [address], [place] [id number] MD Lionel Glass MD Phone: [phone]
== END ==
LOC: US 08:38
PROVIDERS: ATTEND Surgery
DX: N60.02 Solitary cyst of left breast (principal); N63.0 Unspecified lump in unspecified breast; I11.0 Hypertensive heart disease with heart failure; I50.9 Heart failure, unspecified; Z87.891 Personal history of nicotine dependence; Z79.899 Other long term (current) drug therapy
CPT/HCPCS: 19083; 77065; 88304; C1713; 19081; 76942

== ENCOUNTER → 2020-08-02 | Outpatient (CLI) | payer MEDICARE, OTHER ==
[~2020-08-02] MED LIST changes: -TRAN4TAB22 PO; +TRAN4TAB23 PO
--- NOTE | 2020-08-05 10:17 | CARD ---
MR#: [id number] Date of Study: 08/02/2020 Ordering Physician: SHIVA DYSON, Referring Physician: SHIVA DYSON, Tech: Alma Clay [facility] APPROVED REPORT EXAM: Two-dimensional and M-mode echocardiogram with Doppler and color Doppler. Other Information Quality : AverageHR: 62bpm Rhythm : Atrial Fibrillation INDICATION RISK FACTORS Hypertension Obesity Hyperlipidemia Diabetes 2D DIMENSIONS RVDd3.2 (2.9-3.5cm)Left Atrium(2D)3.9 (1.6-4.0cm) IVSd1.6 (0.7-1.1cm)Aortic Root(2D)3.0 (2.0-3.7cm) LVDd4.3 (3.9-5.9cm)LVOT Diameter2.3 (1.8-2.4cm) PWd1.6 (0.7-1.1cm)LVDs2.7 (2.5-4.0cm) FS (%) 37.8 %SV58.1 ml LVEF(%)68.2 (>50%) Aortic Valve AoV Peak Wojciech.217.1cm/sAoV VTI42.9cm AO Peak GR.18.9mmHgLVOT Peak Wojciech.167.2cm/s AO Mean GR.8mmHgAVA (VMAX)3.11cm2 AI P 1/2 Ptqh117wa Mitral Valve MV E Zolmpolf39.3cm/sMV DECEL KENA575bi MV A Ootxgwvt03.8cm/sE/A Ratio1.2 Pulmonary Valve PV Peak Zhfptjsw384.1cm/s Tricuspid Valve TR P. Xkrawvyx300pr/sTR Peak Gr.33mmHg Pulmonary Vein S1 Iezfdlyk12.5cm/sD2 Cjkanvnw05.8cm/s PVa shtkahcv097vfem LEFT VENTRICLE The left ventricle is normal size. There is moderate concentric left ventricular hypertrophy. The lef t ventricular systolic function is normal and the ejection fraction is within normal range. Estimated ejection fraction 60-65%. There is normal LV segmental wall motion. Tissue Doppler imaging reveals m ild left ventricular diastolic dysfunction. RIGHT VENTRICLE The right ventricle is normal size. There is normal right ventricular wall thickness. The right ventr icular systolic function is normal. ATRIA The left atrium size is normal. The right atrium size is normal. The interatrial septum is intact wit h no evidence for an atrial septal defect or patent foramen ovale as noted on 2-D or Doppler imaging. AORTIC VALVE The aortic valve is trileaflet and mildly sclerotic. Doppler and Color Flow revealed mild aortic regu rgitation. There is no significant aortic valvular stenosis. MITRAL VALVE The mitral valve is normal in structure and function. There is no evidence of mitral valve prolapse. There is no mitral valve stenosis Doppler and Color-flow revealed mild mitral regurgitation. TRICUSPID VALVE The tricuspid valve is normal in structure and function. Doppler and Color Flow revealed mild tricusp id regurgitation. Estimated PAP 38-40 mmHg. There is no tricuspid valve stenosis. PULMONIC VALVE Doppler and Color Flow revealed trace pulmonic valvular regurgitation. There is no pulmonic valvular stenosis. GREAT VESSELS The aortic root is normal in size. The ascending aorta is normal in size. The IVC is normal in size a nd collapses >50% with inspiration. PERICARDIAL EFFUSION There is no evidence of significant pericardial effusion. Critical Notification Critical Value: No <Conclusion> The left ventricular systolic function is normal and the ejection fraction is within normal range. E stimated ejection fraction 60-65%. There is normal LV segmental wall motion. Doppler and Color Flow revealed mild aortic regurgitation. Signed by : Shiva Dyson, Electronically Approved : 08/05/2020 10:17:04
== END ==
LOC: ECHO 09:40
PROVIDERS: ATTEND Internal Medicine Cardiovascular Disease
DX: I08.3 Combined rheumatic disorders of mitral, aortic and tricuspid valves (principal); I11.9 Hypertensive heart disease without heart failure
CPT/HCPCS: 93306

== ENCOUNTER → 2020-08-20 | Outpatient (CLI) | payer MEDICARE, OTHER ==
--- NOTE | 2020-08-20 16:13 | RAD ---
[facility] DIGITAL UNILAT DIAGNOSTIC MAMMO WITH BRYON 08/20/2020 10:30 AM INDICATION: Six-month follow-up. COMPARISON: 11/02/2019 mammogram TECHNIQUE: 3D tomosynthesis was performed in CC and MLO projections. 2D views were obtained from the 3D data. CAD was utilized as needed. FINDINGS: No residual asymmetry identified in the left breast. No suspicious microcalcifications, masses or are as of architectural distortion. IMPRESSION: Negative left mammogram. BI-RADS category: 1; Negative Recommendations: Recommend annual screening mammography in one year. Electronically signed by: Lis Jiang MD (08/20/2020 4:10 PM) [id number]
== END ==
LOC: MAMMO 10:28
PROVIDERS: ATTEND Surgery
DX: R92.8 Other abnormal and inconclusive findings on diagnostic imaging of breast (principal)
CPT/HCPCS: 77065; G0279; 77061